=== PATIENT | male | born 1940 | race Caucasian/White ===

== ENCOUNTER 2017-07-09 14:04 | Inpatient (IN) | payer MEDICARE, OTHER ==
[~2017-07-09] VITALS: Ht 172.7 cm; Wt 83.3 kg
--- NOTE | 2017-07-09 23:00 | EKG ---
[facility] [address] [facility] [place] [address] Signed Sinus rhythm with 1st degree AV block Left axis deviation Nonspecific intraventricular block Abnormal ECG No previous ECGs available Confirmed by ARON SCHULTZ MD ([id number]) on 07/09/2017 11:00:29 PM Electronically Signed By: ARON SCHULTZ MD 07/09/17 2300 PATIENT NAME: JANICE FOSTER Electrocardiogram DATE OF : 40 PHYSICIAN: ARON SCHULTZ MD REPORT #: [id number] REPORT IS CONFIDENTIAL AND NOT TO BE RELEASED WITHOUT AUTHORIZATION
--- NOTE | 2017-07-09 23:00 | EKG ---
[facility] [address] [place] [address] Signed Sinus rhythm with 2nd degree AV block (Mobitz I) Left axis deviation Nonspecific intraventricular block Abnormal ECG When compared with ECG of 09-JUL-2017 14:09, (Unconfirmed) Sinus rhythm is now with 2nd degree AV block (Mobitz I) Confirmed by ARON SCHULTZ MD ([id number]) on 07/09/2017 11:00:41 PM Electronically Signed By: ARON SCHULTZ MD 07/09/17 2300 PATIENT NAME: JANICE FOSTER Electrocardiogram DATE OF : 40 PHYSICIAN: ARON SCHULTZ MD REPORT #: [id number] REPORT IS CONFIDENTIAL AND NOT TO BE RELEASED WITHOUT AUTHORIZATION
[2017-07-11] MEDS ORDERED: GLUCOPHAGE500 MG PO (10:17)
[2017-07-11] MEDS ORDERED: LASIX20 MG PO (10:17)
[2017-07-11] MEDS ORDERED: NORVASC10 MG PO (10:18)
[2017-07-11] MEDS ORDERED: ISOSORBIDE MONO60 MG PO (10:18)
[2017-07-11] MEDS ORDERED: LIPITOR20 MG PO (10:18)
[2017-07-11] MEDS ORDERED: AMARYL1 MG PO (10:19)
[2017-07-11] MEDS ORDERED: LISINOPRIL20 MG PO (10:30)
[2017-07-11] MEDS ORDERED: FUROSEMIDE40 MG PO (10:30)
[2017-10-06] MEDS ORDERED: ISOSORBIDE MONO60 MG PO (14:40)
[2017-11-10] MEDS ORDERED: IRON160 MG PO (13:10)
== END 2017-07-11 11:20 | disposition home or self-care (01) | DRG 291 ==
LOC: ED 14:04 → MS 17:00
PROVIDERS: ADMIT Internal Medicine
DX: I13.0 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 kidney disease, or unspecified chronic kidney disease (principal); I50.33 Acute on chronic diastolic (congestive) heart failure; J96.01 Acute respiratory failure with hypoxia; E11.22 Type 2 diabetes mellitus with diabetic chronic kidney disease; N18.3 Chronic kidney disease, stage 3 (moderate); I25.10 Atherosclerotic heart disease of native coronary artery without angina pectoris; D64.9 Anemia, unspecified; E03.9 Hypothyroidism, unspecified; E78.5 Hyperlipidemia, unspecified; Z87.891 Personal history of nicotine dependence; Z79.84 Long term (current) use of oral hypoglycemic drugs
CPT/HCPCS: 36415; 80048; 83735; 83874; 83880; 84484; 93005; 93010; J1650

== ENCOUNTER 2017-09-20 21:17 | Inpatient (IN) | payer MEDICARE ==
[~2017-09-20] VITALS: Ht 172.7 cm; Wt 86.8 kg
--- NOTE | 2017-09-20 00:50 | NUR ---
first unit of blood started, pt has no s/sx of transfusion reaction. pt laying in bed. no distress. has voided x1 since he arrived to the floor. uses urinal. alert and oriented x4. only complaint is that he feels tired, but he reports he hasnt been sleeping well lately because of his cough. no further needs at this time. educated pt on fluid restriction, pt acknowledges understanding.
[~2017-09-20 21:17] MED LIST: AMARYL1 MG PO; FUROSEMIDE40 MG PO; GLUCOPHAGE500 MG PO; ISOSORBIDE MONO60 MG PO; LASIX20 MG PO; LIPITOR20 MG PO; LISINOPRIL20 MG PO; NORVASC10 MG PO
[2017-09-20] MEDS ORDERED: ASPIR-LOW81 MG PO (21:32)
[2017-09-20] MEDS ORDERED: VITAMIN C500 M5 PO (21:33)
[2017-09-20] MEDS ORDERED: FUROSEMIDE40 MG PO (21:37)
[2017-09-20] MEDS ORDERED: CALCIUM 500-VI1 EACH PO (21:40)
[2017-09-20] MEDS ORDERED: SODIUM BICARBO650 MG PO (21:43)
--- NOTE | 2017-09-20 23:43 | NUR ---
PT ARRIVED TO FLOOR VIA STRETCHER. ABLE TO TRANSFER SELF BY AMBULATING TO HOSP BED INDEPENDANTLY. PT ALERT AND ORIENTED X4. PLEASENT. TELE IN PLACE. CONTINUOUS PULSE OXIMETER IN PLACE. PT ORIENTED TO ROOM. CALL LIGHT IN REACH. PT WATCHING TV. NO DISTRESS.
--- NOTE | 2017-09-21 01:38 | NUR ---
pt desated into upper 80%'s on ra while sleeping. re-positioned pt to sit up more in bed, when pt woke up his sats came up into mid 90%'s on ra. while sleeping though, pt continued to dip down into upper 80's. placed pt on 2l while sleeping. pt has no s/sx of blood transfusion reaction. pt has no needs. call light is in reach.
--- NOTE | 2017-09-21 04:12 | NUR ---
SECOND UNIT OF BLOOD STARTED. NO S/SX OF INFUSION REACTION. PT STATES "MY COUGH IS STILL BAD, BUT I FEEL LIKE I CAN BREATHE BETTER." PT REPORTS SOB IS "ALMOST GONE." PT HAS NO NEEDS. WATCHING TV. NO DISTRESS. CALL LIGHT IN REACH.
--- NOTE | 2017-09-21 05:31 | NUR ---
RECEIVED REPORT ON PT, HE IS AWAKE IN BED AT THIS TIME WATCHING TV. PT DENIES NEEDS AT THIS TIME.
--- NOTE | 2017-09-21 06:19 | NUR ---
2ND UNIT OF PRBC IS COMPLETE AND VS ENTERED. PT IS AWAKE IN BED WATCHING TV. PT DENIES FURTHER NEEDS AT THIS TIME.
--- NOTE | 2017-09-21 07:46 | NUR ---
RECEIVED REPORT FROM NIGHTSHIFT RN. PT IS AWAKE IN BED. 2L O2 IN PLACE. SATURATION IS 95% PULSE IS 75 ON CONTINULA PULSE OX. PT ON TELE # 8 IN SINUS RHYHTM. PT IS A/O. RESPIRATIONS WNL. PT IS SL IN LAC. 2ND UNIT FINISHED INFUSING @ 0612 THIS AM. CALL [facility] WITHIN REACH
--- NOTE | 2017-09-21 08:23 | NUR ---
rounded with dr pressley. talked to pt about about plan of care. 1 unite of blood ordered. blood sugar was 101. beakfast given. call light within reach.
--- NOTE | 2017-09-21 08:45 | NUR ---
dr pressley titrated to ra. pt tolerating well. saturations at 94% pulse 83.
--- NOTE | 2017-09-21 10:36 | NUR ---
STARTED BLOOD INFUSION. PRE V/S @ 1032- TEMP 98.5, RESPIRATIONS 16, B/P 116/35, O2 95%. PT EDUCATED ON BLOOD REACTIONS. UESED TEACH BACK METHOD. PT WAS ABLE TO SAY REATIONS TO LOOK FOR- RASH, FLANK PAIN, SOB, ITCHING, TEMP INCREASE. STARTED BLOOD @ 75ML/HR FOR FIRST 15MIN. NO INITAL REACTIONS NOTED.
--- NOTE | 2017-09-21 10:51 | NUR ---
15 MIN AFTER START OF TRANSFUSION STARTED. NO REACTIONS NOTED. V/S- TEMP 98, PULSE 68, RESPIRATIONS 20, B/P 117/36, O2 92% ON RA.
[2017-09-21] MEDS ORDERED: TENORMIN50 MG PO (11:30)
[2017-09-21] MEDS ORDERED: ZESTRIL20 MG PO (11:33)
--- NOTE | 2017-09-21 12:47 | NUR ---
Heart Failure education- Patient given HF folder including [facility] HF book, blank [employer] home med schedule, daily weight/sx log, and low sodium shopping list. States he can read if the words aren't too long. Lives alone in [facility]. States transportation is by landlady. Diet consists of dining out, canned soup, and lots of Ramen noodles. Patient informed of hidden salt in these items. Patient is aware that he was diagnosed with HF last June. Does not own scale and does not currently weigh self every day. Plan: Pt to view HF video and return for in depth discussion about low salt alternatives. Offer patient pill box and scale to take home.
[2017-09-21] MEDS ORDERED: PRILOSEC OTC20 MG PO (13:35)
[2017-09-21] MEDS ORDERED: CENTRUM SILVER1 EAC3 PO (13:36)
[2017-09-21] MEDS ORDERED: FISH OIL 1,0001 EAC2 NG (13:37)
--- NOTE | 2017-09-21 13:38 | NUR ---
MED REC COMPLETE
--- NOTE | 2017-09-21 13:53 | NUR ---
BLOOD TRANSFUSIION COMPLETE. PT HAS NO S/SX OF A TRANSFUSION REACTION. B/P IS 116/34, 95% ON 2L NC, PULSE IS 66, RESPIRATONS 24. PT IS A/O STATES HES READY FOR A NAP.
--- NOTE | 2017-09-21 16:18 | NUR ---
PT COMPLAINED OF CHEST PAIN. 03/21 THAT LASTED FOR 1 SEC. THE PT STAT ED HE WAS ALMSOT ASLEEP WHEN IT HAPPENED. V/S 116/50, 98.8 TEMP, 92% SATURATION, 77 PULSE, RESPIRATIONS 28. DR SCHULTZ NOTIFIED. NO NEW ORDERS.
--- NOTE | 2017-09-21 17:18 | EKG ---
[facility] [address] [place] [address] Signed Sinus rhythm with 1st degree AV block Right bundle branch block Left anterior fascicular block Bifascicular block Abnormal ECG When compared with ECG of 09-JUL-2017 15:21, Sinus rhythm is no longer with 2nd degree AV block (Mobitz I) Confirmed by ARON SCHULTZ MD ([id number]) on 09/21/2017 5:18:40 PM Electronically Signed By: ARON SCHULTZ MD 09/21/17 1718 PATIENT NAME: JANICE FOSTER Electrocardiogram DATE OF : 40 PHYSICIAN: ARON SCHULTZ MD REPORT #: [id number] REPORT IS CONFIDENTIAL AND NOT TO BE RELEASED WITHOUT AUTHORIZATION
--- NOTE | 2017-09-21 17:55 | NUR ---
3 UNITS BLOOD GIVEN. NO REACTIONS. LUNGS ARE DIM. ADA DIET. SBA. SCD'S. SL. DBP HAS BEEN RUNNING LOW IN 38-40'S. LAST B/P WAS 116/50. LASIX GIVEN.
--- NOTE | 2017-09-21 21:00 | NUR ---
pt laying in bed. no apparent distress. alert and oriented, pleasent demenor. no needs at this time.
--- NOTE | 2017-09-21 23:28 | NUR ---
AXILLARY TEMP 101.6, DR SCHULTZ GAVE NEW ORDERS. RN PLACED ORDERS IN COMPUTER.
--- NOTE | 2017-09-21 23:40 | NUR ---
PT RECIEVED TYLENOL FOR ELEVATED TEMP, SHORTLY AFTER PT VOMITED, UNABLE TO TELL IF TYLENOL WAS EXPELLED WITH VOMIT. DR SCHULTZ OKNITIN'D TO HAVE ANOTHER DOSE OF TYLENOL GIVEN. PT GIVEN ZOFRAN ALSO.
--- NOTE | 2017-09-22 00:40 | NUR ---
PT LAYING IN BED. AXILLARY TEMP 100.6 NOW. PT FINISHED REMAINDER OF BOWEL PREP. NO BM YET. PT REPORTS FEELING BETTER. RIGORS ARE GONE AND PT REPORTS HE DOES NOT FEEL COLD ANYMORE. ALLOWING PT TO REST. NPO FOR PROCEDURE IN THE MORNING. CALL LIGHT IN REACH. BED ALARM FOR SAFETY.
--- NOTE | 2017-09-22 02:16 | NUR ---
PT APPEARS TO BE SLEEPING. RR WNL AND UNLABORED. LIGHTS AND TV OFF IN ROOM.
--- NOTE | 2017-09-22 05:11 | NUR ---
PT SPIKED TEMP EARLY IN SHIFT, TYLENOL CONTROLLED FEVER WELL. BLOOD CULTURES AND CHEST XRAY ORDERED AND COMPLETED. UA AND SPUTUM SAMPLE ALSO ORDERED, BUT STILL NEED TO BE COLLECTED. PT COMPLETED BOWEL PREP LAST NIGHT RIGHT BEFORE 0100, HAS BEEN NPO SINCE THEN, NO BM YET. EGD AND COLONOSCOPY SCHEDULED TODAY TO FOLLOW. IV ANTIBIOTICS STARTED LAST NIGHT. BED ALARM ACITATED FOR PT SAFETY. ALERT AND ORIENTED X4. PLEASENT DEMEANOR.
--- NOTE | 2017-09-22 05:53 | NUR ---
PT INCONTINENT OF BM. SAT ON TOILET SEVERAL MINUTES AND HAD LARGE AMOUNTS OF LIQUID BM. COLLECTED CLEAN CATCH UA. ASSISTED PT IN CLEANING HIMSELF UP, NEW GOWN. CLEANED BED AND CHANGED BEDDING. PT HAS NO FURTHER NEEDS. AND NO COMPLAINTS AT THIS TIME. CALL LIGHT IN REACH.
--- NOTE | 2017-09-22 08:02 | NUR ---
BEDSIDE REPORT RECEIVED FROM ANNEMARIE. PATIENT AWAKE, A&O, SITTING IN THE CHAIR. DENIES PAIN AT THIS TIME, NO NAUSEA. PATIENT IS S/L. NO APPARENT DISTRESS. WHITE BOARD UPDATED. CALL LIGHT IN REACH.
--- NOTE | 2017-09-22 08:25 | NUR ---
PATIENT RESTING IN BED, DENIES NAUSEA AND PAIN. REPORTS FEELING TIRED FROM GETTING UP FREQUENTLY TO BATHROOM DUE TO BOWEL PREP. SKIN INTACT. LUNGS DIM IN THE BASES. ACTIVE BOWEL TONES. PERIPHERAL PULSE PALPABLE. NO APPARENT DISTRESS. MORNING MEDS GIVEN WITH SIP OF WATER. HOLD BP MED FOR LOW BP. WILL REEVALUATE LATER.
--- NOTE | 2017-09-22 09:53 | CONS ---
[facility] [address] [place], [place] [address] Signed DATE OF CONSULTATION: 09/21/2017 TIME: 7:15 p.m. CONSULTING PHYSICIAN: Caesar Sousa MD PROBLEM: Profound anemia, etiology uncertain. HISTORY OF PRESENT ILLNESS: This 76-year-old white male was admitted to the hospital after evaluation in the emergency room last night. He was admitted by Dr. Schultz this morning, having had complaints of shortness of breath and general weakness. He was hospitalized in June of 2017 for decompensated heart failure. He has had shortness of breath 2 days prior to admission with inability to walk even half a block. He had some lightheadedness as well. He has had no overt bleeding, specifically no hematemesis or hematochezia. His evaluation in the emergency room was significant for a hemoglobin noted to be 6. He received 2 units of packed red cells. His hemoglobin today is 7.7. PAST MEDICAL HISTORY: Does include coronary artery disease. A stress test performed in August of 2017 showing ischemia of the inferior and septal wall areas. Specific intervention for this finding has not been made apparent to me. He does have known heart failure with preserved ejection fraction, chronic kidney disease considered stage 3 with baseline creatinine of 1.8. Also, has type 2 diabetes mellitus, hypothyroidism, and history of colonic polyps. Specific to his colonic polyps, he had what sounds like anemia in 2007, was evaluated in [place], [place], where he underwent upper endoscopy and colonoscopy and had multiple polyps, which were excised. It is notable that he was incarcerated at [facility] at that time. He was serving 10 years for his offense and has since been released. He now lives in [place]. He lives alone. MEDICATIONS: His medications at admission include: 1. Aspirin. 2. Vitamin C. 3. Lasix. 4. Calcium supplement tablet. Electronically Signed By: CAESAR SOUSA MD 09/22/17 0953 PATIENT NAME: JANICE FOSTER CONSULTATION DATE OF : 40 REPORT #: [id number] PHYSICIAN: CAESAR SOUSA MD PCP: GILDARDO PAULINO REPORT IS CONFIDENTIAL AND NOT TO BE RELEASED WITHOUT AUTHORIZATION [facility] [address] [place], [place] [address] Signed 5. Metformin. 6. Isosorbide mononitrate. 7. Amlodipine. 8. Atorvastatin. 9. Glimepiride. REVIEW OF SYSTEMS: He denies any chest pain or shortness of breath at this time. He has had no hematemesis or blood per rectum. Denies dysphagia. PHYSICAL EXAMINATION: GENERAL: A elderly man, who does not look particularly healthy in any way, but does not look acutely sick or toxic either. HEENT: Mucous membranes reasonably moist. Trachea is midline. He has no cough. He has no hoarseness at this time. CHEST: Shows normal respiratory excursion without tachypnea. ABDOMEN: Soft and nondistended. There is no palpable mass. No tenderness. No ascites. EXTREMITIES: Show no clubbing, cyanosis, or edema. There are no petechiae. LABORATORY DATA: His electrolytes yesterday showed a creatinine of 1.81. Liver enzymes were normal. Troponin was 0.061, normal is less than 0.010. His BNP (beta natriuretic peptide) was 413. His hematocrit yesterday was 18.1, today 23.7, platelet count is 207,000, which is stable. Chest x-ray showed no sign of acute pulmonary edema or other particular problem. ASSESSMENT: His anemia is profound and likely chronic given its significant nature. He has had no overt bleeding, but has some source of probable blood loss. Less likely would be a problem with hematopoiesis. I have recommended upper endoscopy and colonoscopy. We would certainly appreciate the assistance of an culinary chef for sedation and under his circumstances. The risks of bleeding, infection, and perforation were reviewed with him. PLAN: We will set up for colonoscopy and upper endoscopy tomorrow. He can have clear liquids up till midnight. Likely this will be able to be performed tomorrow morning. Caesar Sousa MD Electronically Signed By: CAESAR SOUSA MD 09/22/17 0953 PATIENT NAME: JANICE FOSTER CONSULTATION DATE OF : 40 REPORT #: [id number] PHYSICIAN: CAESAR SOUSA MD PCP: GILDARDO PAULINO REPORT IS CONFIDENTIAL AND NOT TO BE RELEASED WITHOUT AUTHORIZATION [facility] [address] [facility] [place], [place] [address] Signed SANDRA/GUILLE /[id number] cc: Aron Schultz MD Copies: ARON SCHULTZ MD ~ Electronically Signed By: CAESAR SOUSA MD 09/22/17 0953 PATIENT NAME: JANICE FOSTER CONSULTATION DATE OF : 40 REPORT #: [id number] PHYSICIAN: CAESAR SOUSA MD PCP: GILDARDO PAULINO REPORT IS CONFIDENTIAL AND NOT TO BE RELEASED WITHOUT AUTHORIZATION
--- NOTE | 2017-09-22 09:55 | NUR ---
PATIENT OFF THE FLOOR WITH OR NURSE BALDOMERO FOR EGD PROCEDURE.
--- NOTE | 2017-09-22 11:00 | NUR ---
09/22/17 1100 Baylee Patrick 1053 PATIENT ARRIVES TO PACU SLEEPING, AWAKENS AFTER REPEATED PAINFUL STIMULI, THEN BACK TO SLEEP. RESP EVEN AND UNLABORED, NC AT 4 LITERS.
--- NOTE | 2017-09-22 11:50 | NUR ---
PATIENT BACK TO FLOOR FROM HIS EGD PROCEDURE. DENIES PAIN AND NAUSEA AT THIS TIME. NO ABD PAIN. IV SITE PATENT. SCD BACK ON. NOTIFIED PATIENT ABOUT RESULT OF EGD AND THAT THE DR WANTS TO PROCEED WITH A CT WITH ORAL CONTRAST.
--- NOTE | 2017-09-22 13:39 | NUR ---
THIS HOME IMPROVEMENT CONTRACTOR ASSISTED PATIENT TO THE [address] SBA. PATIENT NOW RELAXING IN CHAIR WATCHING TV. CALL LIGHT WITHIN REACH. NO OTHER NEEDS AT THIS TIME.
--- NOTE | 2017-09-22 13:43 | NUR ---
PATIENT RESTING IN BED, DENIES PAIN. REPORTS BEING TIRED. NO APPARENT DISTRESS NOTED. CALL LIGHT IN REACH. WILL CONTINUE TO MONITOR.
--- NOTE | 2017-09-22 16:01 | NUR ---
DR SCHULTZ IN ROOM TO SEE AND EVALUATE PATIENT. DM TALKED TO PATIENT ABOUT RESULT OF THE EGD.
--- NOTE | 2017-09-22 18:34 | NUR ---
PATIENT HAD DONE WELL TODAY. EGD DONE THIS AM, RESULT NORMAL. CT WAS DONE THIS PM, NO FINDINGS. PATIENT DENIED NAUSE E AND PAIN. HAD BEEN UP TO BATHROOM. URINE MEET [place] PARAMETER. PATIENT IS S/L. IV ABX. TOLERATED CLEAR LIQUID WELL. LAB SCHEDULE IN THE AM. NO FEVER IN THIS SHIFT. MAY D/C TOMORROW.
--- NOTE | 2017-09-22 18:47 | NUR ---
PATIENT UP TO BATHROOM AND BACK TO BED. FRESH ICE WATER GIVEN. CALL BUTTON IN REACH. OUT PUT REPORTED TO RN. CALL BUTTON IN REACH. NO OTHER NEEDS AT THIS TIME.
--- NOTE | 2017-09-22 19:43 | OR ---
[facility] [address] [place], [place] [address] Signed DATE OF OPERATION: 09/22/2017 SURGEON: Caesar Sousa MD PREOPERATIVE DIAGNOSIS: Anemia of uncertain etiology, hemoglobin 6 initially. POSTOPERATIVE DIAGNOSES: 1. Essentially normal upper endoscopy, mild distal esophagitis. No ulceration. No lesion to account for bleeding. 2. Total colonoscopy with no evidence of lesion to account for anemia. PROCEDURES: 1. Esophagogastroduodenoscopy with biopsy. 2. Total colonoscopy. ANESTHESIA: Intravenous sedation, propofol infusion, Carlie Mitch EVENT COORDINATOR MARKETING AND SALES. INDICATION: This 76-year-old white male was admitted by Dr. Schultz on September 20, 2017 with profound anemia, having presented with lightheadedness, weakness, and so forth. Hemoglobin was found to be 6.2. He has undergone 2 units of blood transfusion. Hemoglobin today is 9.0. He has had no overt rectal bleeding. No hematemesis and no prior history of ulcer or known abnormality other than polyps on colonoscopy nearly 10 years ago. He has undergone bowel prep and at this time to undergo upper endoscopy and colonoscopy. He understands the risks of bleeding, infection, and perforation. He is considered ASA class 4. FINDINGS: On upper endoscopy, there was no evidence of lesion to account for bleeding. The esophagus, stomach, and duodenum were reasonably normal. There is mild distal esophagitis. A biopsy was obtained. There was no Izquierdo's epithelium. There is certainly no sign of neoplasm or mass otherwise. There is no ulceration. On colonoscopy, the prep was adequate, but a fair amount of irrigation was required. He did not have solid stool, but a fair amount of liquid residual turbid fluid. Colonoscopy was undertaken to the cecum with no obvious lesion identified. This included retroflexed view. Electronically Signed By: CAESAR SOUSA MD 09/22/17 194 PATIENT NAME: JANICE FOSTER OPERATIVE REPORT DATE OF : 40 REPORT #: [id number] PHYSICIAN: CAESAR SOUSA MD PCP: GILDARDO PAULINO REPORT IS CONFIDENTIAL AND NOT TO BE RELEASED WITHOUT AUTHORIZATION [facility] [address] [place], [place] [address] Signed DESCRIPTION OF PROCEDURE: The patient was brought to the endoscopy suite and placed in lateral decubitus position given topical Hurricaine spray hypopharyngeal anesthesia. He was given intravenous sedation with propofol infusional technique with the nurse film reader with full cardiopulmonary monitoring. A bite block was placed. An Olympus video upper endoscope was passed in the hypopharynx. The vocal cords and hypopharyngeal tissue were normal. Scope was advanced to the esophagus throughout its length, it was normal. Scope was advanced to the stomach, which was insufflated with air. Rugal folds appeared normal. The antrum was normal. Pylorus normal. Scope was passed through into the duodenum, which was also normal including the bulbar and 2nd and 3rd portions. The scope was withdrawn carefully assessing no evidence of ulcer in the pyloric channel. Withdrawal of scope to the stomach allowed for retroflexed view, which was essentially normal though the flap valve was slightly loose. The scope was straightened and withdrawn to the distal esophagus. There was no sign of ulceration, neoplasm, varices, or stricture. No Izquierdo's epithelium. A biopsy was obtained as there was mild inflammatory change. Further withdrawal of scope showed no other findings. Additional sedation and continued infusional technique of propofol were given and digital rectal examination was undertaken allowing for egress of copious amounts of liquid stool, which did not appear bloody particularly. The Olympus video colonoscope was passed in the rectum and manipulated throughout the colon. A fair amount of irrigation was required as there was residual fluid and turbid stool laden fluid. With various maneuvers, the scope was ultimately passed to the cecum. Irrigation was undertaken there and there was no sign of lesion. The scope was then carefully withdrawn. Examination throughout showed no sign of abnormality including no diverticular formation, colitis, or cancer. Retroflex view of the rectum was normal. There was no sign of hemorrhoidal disease. There was no lesion to account for his anemia. The scope was removed and the patient was taken to recovery room in good condition. CONCLUDING DIAGNOSIS: Anemia of uncertain etiology. PLAN: Consideration might be made for a CT scan of the abdomen to assess for occult small bowel lesion or other abnormality that may contribute to anemia. Caesar Sousa MD Electronically Signed By: CAESAR SOUSA MD 09/22/171942 PATIENT NAME: JANICE FOSTER OPERATIVE REPORT DATE OF : 40 REPORT #: [id number] PHYSICIAN: CAESAR SOUSA MD PCP: GILDARDO PAULINO REPORT IS CONFIDENTIAL AND NOT TO BE RELEASED WITHOUT AUTHORIZATION [address] [address] Signed SANDRA/GUILLE /[id number] cc: Aron Schultz MD Copies: ARON SCHULTZ MD ~ Electronically Signed By: CAESAR SOUSA MD 09/22/17 1943 PATIENT NAME: JANICE FOSTER OPERATIVE REPORT DATE OF : 40 REPORT #: [id number] PHYSICIAN: CAESAR SOUSA MD PCP: GILDARDO PAULINO REPORT IS CONFIDENTIAL AND NOT TO BE RELEASED WITHOUT AUTHORIZATION
--- NOTE | 2017-09-22 20:00 | NUR ---
RECEIVED REPORT AT 1900, FOUND PT IN BED AWAKE READING. PT DENIED PAIN, SOB OR ANY OTHER CONCERNS AT THAT TIME.
--- NOTE | 2017-09-22 21:20 | NUR ---
VITALS AND I&OS DONE AND CHARTED. BEDSIDE TABLE AND CALL LIGHT WITHIN REACH.
--- NOTE | 2017-09-22 21:24 | NUR ---
ROUNDED CHARGE. OJ TAN IS IN THE ROOM. PATIENT DENIES ANY NEEDS AT THIS TIME. CALL LIGHT IN REACH.
--- NOTE | 2017-09-22 22:00 | NUR ---
V/S ARE WDL OVERALL, BG WAS 100, NO INSULIN WAS GIVEN. SPUTUM STILL HAS NOT BEEN COLLECTED. THERE WAS EXPIRATORY WHEEZING IN ALL RIGHT LOBES AND THE UPPER LEFT LOBE. ALL OTHER LOBES ARE CLEAR. PT DENIES SOB. ABD SOUNDS ARE PRESENT, NO PERIPHERAL EDEMA NOTED. NO OTHER CONCERNS AT THIS TIME.
--- NOTE | 2017-09-22 22:17 | NUR ---
HELPED PT TO THE BATHROOM AND BACK TO BED. BEDSIDE TABLE AND CALL LIGHT IN REACH. FRESH WATER GIVEN
--- NOTE | 2017-09-23 | NUR ---
PT IS SLEEPING.
--- NOTE | 2017-09-23 02:00 | NUR ---
PT IS SLEEPING AT THIS TIME.
--- NOTE | 2017-09-23 04:06 | NUR ---
PT IS SLEEPING AT THIS TIME.
--- NOTE | 2017-09-23 04:17 | NUR ---
ASSISTED PT TO BATHROOM. PT VOIDED 300ML. ALL LOBES ARE CLEAR. SPUTUM SAMPLE HAS BEEN COLLECTED AND WILL BE SENT NOW. NO NEW CONCERNS AT THIS TIME.
--- NOTE | 2017-09-23 05:44 | NUR ---
VITALS AND I&OS DONE AND CHARTED. GARBAGES EMPTIED. BEDSIDE TABLE AND CALL LIGHT IN REACH.
--- NOTE | 2017-09-23 06:00 | NUR ---
V/S OVERALL ARE WDL. PT HAS REMAINED AFEBRILE ALL SHIFT. PT SLEPT MOST OF THIS SHIFT. SPUTUM SAMPLE WAS SENT. AT START OF SHIFT PT HAD EXPIRATORY WHEEZING, WITH THE SECOND ASSESSMENT, ALL LOBES WERE CLEAR. URINE OUTPUT WAS NOT ADEQUATE FROM [id number] BUT PT WAS SLEEPING. NO PERIPHERAL EDEMA NOTED. NO OTHER CONCERNS FOR THIS PT AT THIS TIME.
--- NOTE | 2017-09-23 07:19 | NUR ---
BEDSIDE REPORT RECEIVED FROM OJ. ASSUMING PATIENT CARE WITH STUDENT NURSE. PATIENT AWAKE, ALERT AND ORIENTED, LYING IN BED . NO COMPLAINTS AT THIS TIME. CALL LIGHT IN REACH
--- NOTE | 2017-09-23 07:29 | NUR ---
Student nurse received report. Pt resting comfortably in bed. Pt. reports no pain or distess. Assessment completed, respiratory assessment reveals crackles in the LLL. Patient waiting for breakfast. Call light within reach.
--- NOTE | 2017-09-23 09:07 | NUR ---
Atenolol and Isosorbide not given at this time because of low diastolic pressure. Waiting for consult with physician for administration. BP 137/40
--- NOTE | 2017-09-23 10:02 | NUR ---
Pt temp WDL with oral route. Atenolol and isosorbide given at the decretion of the doctor.
--- NOTE | 2017-09-23 10:05 | NUR ---
Pt up in chair. Pt reports no discomfort, pain, or SOB. Antibiotic infusing. Bedding changed. Pt educated on anemia patho. Call light within reach.
[2017-09-23] MEDS ORDERED: CEFPODOXIME PR200 MG PO (10:19)
--- NOTE | 2017-09-23 10:19 | NUR ---
PATIENT ASSESSMENT DONE BY STUDENT NURSE. THIS RN REVIEWED ALL ASSESSMENT. DR SCHULTZ WAS CONSULTING ABOUT BP MEDS, OK TO GIVE MEDS.
[2017-09-23] MEDS ORDERED: AZITHROMYCIN500 MG PO (10:20)
[2017-09-23] MEDS ORDERED: ASPIR-LOW81 MG PO (10:21)
--- NOTE | 2017-09-23 11:05 | NUR ---
Heart failure education - 15 minutes discussing low sodium quick foods alternatives and decreasing frequency of fast food meals. Patient described his method for filling his AM and PM pill boxes. States pharmacist does auto reminder calls for his refills. Denies missed medications. Mini Cognitive screening completed Total Score 4. (a cut point of <3 has been validated for dementia screening).
--- NOTE | 2017-09-27 11:56 | NUR ---
Heart failure [facility] DC follow up call #1- Patient was discharged on 09/23/17 states he is doing well. Appetite WNL. Does not have scales for daily weight. Encouraged patient to obtain scales and check QD as discussed. To call this RN if needs assistance with obtaining. Denies problems with breathing. Able to state date of PCP follow up as 10/13/17 and that he does have a ride to the visit. Was able to state that he had discontinued 2 meds as instructed and that he picked up antibiotics "the new red pill". He denies problems with taking or understanding medication instructions.
[2017-10-06] MEDS ORDERED: ISOSORBIDE MONO60 MG PO (14:40)
[2017-11-10] MEDS ORDERED: IRON160 MG PO (13:10)
== END 2017-09-23 11:23 | disposition home or self-care (01) | DRG 811 ==
LOC: ED 21:17 → MS 21:18 → ED 21:18 → MS 09-21 08:54
PROVIDERS: Surgery; ADMIT Internal Medicine
PROC: 30233N1 Transfusion of Nonautologous Red Blood Cells into Peripheral Vein, Percutaneous Approach (ICD-10-PCS; principal; 2017-09-21)
PROC: 0DB38ZX Excision of Lower Esophagus, Via Natural or Artificial Opening Endoscopic, Diagnostic (ICD-10-PCS; 2017-09-22 10:30)
PROC: 0DJD8ZZ Inspection of Lower Intestinal Tract, Via Natural or Artificial Opening Endoscopic (ICD-10-PCS; 2017-09-22 10:30)
DX: D50.8 Other iron deficiency anemias (principal); J13 Pneumonia due to Streptococcus pneumoniae; J96.01 Acute respiratory failure with hypoxia; I13.0 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 kidney disease, or unspecified chronic kidney disease; I25.10 Atherosclerotic heart disease of native coronary artery without angina pectoris; I50.9 Heart failure, unspecified; N18.3 Chronic kidney disease, stage 3 (moderate); E11.22 Type 2 diabetes mellitus with diabetic chronic kidney disease; E78.5 Hyperlipidemia, unspecified; K20.9 Esophagitis, unspecified; E03.9 Hypothyroidism, unspecified; Z86.010 Personal history of colon polyps; Z87.891 Personal history of nicotine dependence; Z88.2 Allergy status to sulfonamides; Z79.82 Long term (current) use of aspirin; Z79.84 Long term (current) use of oral hypoglycemic drugs
CPT/HCPCS: 36415; 71046; 74176; 80048; 80053; 81001; 83880; 84484; 85025; 86850; 86900; 86901; 86920; 87040; 87070; 87205; 88305; 93005; 93010; 94762; J0456; J0696; J2405; J2704; J7040

== ENCOUNTER 2017-10-27 10:41 | Day surgery (SDC) | payer MEDICARE ==
[~2017-10-27] VITALS: Ht 172.7 cm; Wt 85.7 kg
[~2017-10-27 10:41] MED LIST changes: +ASPIR-LOW81 MG PO; +AZITHROMYCIN500 MG PO; +CALCIUM 500-VI1 EACH PO; +CEFPODOXIME PR200 MG PO; +CENTRUM SILVER1 EAC3 PO; +FISH OIL 1,0001 EAC2 NG; +PRILOSEC OTC20 MG PO; +SODIUM BICARBO650 MG PO; +TENORMIN50 MG PO; +VITAMIN C500 M5 PO; +ZESTRIL20 MG PO
--- NOTE | 2017-10-27 13:10 | NUR ---
10/27/17 1310 [place] 1243 PT ARRIVED IN PACU SLEEPY LAYING ON STOMACH. NO C/O'S. 1300 REPOSITIONED TO L SIDE. NO C/O'S.
[2017-11-10] MEDS ORDERED: IRON160 MG PO (13:10)
== END 2017-10-27 13:30 | disposition home or self-care (01) ==
LOC: OPS 10:41 → DS 10:41
PROVIDERS: Specialist
PROC: 079T3ZX Drainage of Bone Marrow, Percutaneous Approach, Diagnostic (ICD-10-PCS; 2017-10-27)
PROC: 07DR3ZX Extraction of Iliac Bone Marrow, Percutaneous Approach, Diagnostic (ICD-10-PCS; principal; 2017-10-27 12:00)
DX: D61.9 Aplastic anemia, unspecified (principal); E78.5 Hyperlipidemia, unspecified; E11.9 Type 2 diabetes mellitus without complications; E03.9 Hypothyroidism, unspecified; I11.0 Hypertensive heart disease with heart failure; I50.9 Heart failure, unspecified; Z79.82 Long term (current) use of aspirin; Z79.84 Long term (current) use of oral hypoglycemic drugs; Z79.899 Other long term (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; Z88.2 Allergy status to sulfonamides
CPT/HCPCS: 36415; 80053; 82668; 83010; 83615; 85025; 85045; 86880; 99152; J2250; J3010; J7120

== ENCOUNTER 2018-08-06 22:02 | Emergency (ER) | payer MEDICARE ==
[~2018-08-06] VITALS: Ht 172.7 cm; Wt 89.4 kg
[~2018-08-06 22:02] MED LIST changes: +IRON160 MG PO
== END 2018-08-06 23:35 | disposition home or self-care (01) ==
LOC: ED 22:02
DX: S00.31XA Abrasion of nose, initial encounter (principal); S00.81XA Abrasion of other part of head, initial encounter; E03.9 Hypothyroidism, unspecified; E78.5 Hyperlipidemia, unspecified; E11.22 Type 2 diabetes mellitus with diabetic chronic kidney disease; I13.0 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 kidney disease, or unspecified chronic kidney disease; N18.3 Chronic kidney disease, stage 3 (moderate); Z90.49 Acquired absence of other specified parts of digestive tract; Z88.2 Allergy status to sulfonamides; Z79.82 Long term (current) use of aspirin; Z79.84 Long term (current) use of oral hypoglycemic drugs; W01.0XXA Fall on same level from slipping, tripping and stumbling without subsequent striking against object, initial encounter
CPT/HCPCS: 99283

== ENCOUNTER 2018-12-21 09:24 | Observation (INO) | payer MEDICARE ==
[~2018-12-21] VITALS: Ht 172.7 cm; Wt 91.3 kg
[~2018-12-21 09:24] MED LIST changes: -IRON160 MG PO; +IRON325 M1 PO
--- OUTSIDE RECORDS SUMMARY | 2018-12-21 09:26 | XMS ---
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 Care History Medical/Surgical 11/03/2017 [facility] - Patient is currently seeing Dr Suazo. Please refer to Dr Suazo office if patient presents to ED with low blood count levels. - Patient is currently also seeing Dr Alyssa Mcrae in [place]. Care Recommendation: This patient has had 5 or more Emergency Department visits in the last 12 months. Patient requires education on the scope and purpose of the ED as an acute care provider not a Primary Care Provider and should not be utilized for chronic conditions. If patient returns to ED please contact Community Health WorkerElba at [phone]. These are guidelines and the provider should exercise clinical judgment when providing care. E.D. VISIT COUNT (12 MO.) 2 [facility] TOTAL 2 NOTE: Visits indicate total known visits. 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
[2018-12-21] MEDS ORDERED: LEVOTHYROXINE25 MCG PO (09:47)
[2018-12-21] MEDS ORDERED: LISINOPRIL10 MG PO (09:47)
--- NOTE | 2018-12-22 07:58 | EKG ---
[facility] [address] [facility] [place] [address] Signed Sinus rhythm with 1st degree AV block Left axis deviation Nonspecific intraventricular block Abnormal ECG When compared with ECG of 20-SEP-2017 21:46, Nonspecific intraventricular block has replaced Right bundle branch block Confirmed by LANE RODRÍGUEZ MD ([id number]) on 12/22/2018 7:58:22 AM Electronically Signed By: LANE RODRÍGUEZ MD 12/22/18 0758 PATIENT NAME: JANICE FOSTER HOLAARIEL Electrocardiogram DATE OF : 40 PHYSICIAN: LANE RODRÍGUEZ MD REPORT #: [id number] REPORT IS CONFIDENTIAL AND NOT TO BE RELEASED WITHOUT AUTHORIZATION
== END 2018-12-22 10:59 | disposition home or self-care (01) ==
LOC: ED 09:24 → MS 09:25
PROVIDERS: ADMIT Internal Medicine
DX: R53.1 Weakness (principal); R11.10 Vomiting, unspecified; R19.7 Diarrhea, unspecified; E86.1 Hypovolemia; N28.9 Disorder of kidney and ureter, unspecified; E03.9 Hypothyroidism, unspecified; E78.5 Hyperlipidemia, unspecified; E11.22 Type 2 diabetes mellitus with diabetic chronic kidney disease; I13.0 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 kidney disease, or unspecified chronic kidney disease; N18.3 Chronic kidney disease, stage 3 (moderate); I50.9 Heart failure, unspecified; D63.1 Anemia in chronic kidney disease; Z85.828 Personal history of other malignant neoplasm of skin; Z87.891 Personal history of nicotine dependence; Z88.2 Allergy status to sulfonamides; Z79.84 Long term (current) use of oral hypoglycemic drugs; Z79.82 Long term (current) use of aspirin; Z79.899 Other long term (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
CPT/HCPCS: 36415; 70450; 80048; 80053; 81001; 83690; 83735; 84100; 84484; 85025; 93005; 93010; 96361; 96374; 96375; 96376; 97162; 99285-25; C9113; G0378; J1815; J2405; J7030

== ENCOUNTER 2019-09-25 09:07 | Emergency (ER) | payer MEDICARE ==
[~2019-09-25] VITALS: Ht 172.7 cm; Wt 91.2 kg
[~2019-09-25 09:07] MED LIST changes: +LEVOTHYROXINE25 MCG PO; +LISINOPRIL10 MG PO
--- NOTE | 2019-09-25 16:58 | EKG ---
[facility] [address] [facility] [place] [address] Signed Sinus rhythm with 1st degree AV block Right bundle branch block Left anterior fascicular block Bifascicular block Abnormal ECG When compared with ECG of 21-DEC-2018 09:50, Right bundle branch block has replaced Nonspecific intraventricular block Confirmed by ARON SCHULTZ MD ([id number]) on 09/25/2019 4:58:26 PM Electronically Signed By: ARON SCHULTZ MD 09/25/19 1658 PATIENT NAME: JANICE FOSTER Electrocardiogram DATE OF : 40 PHYSICIAN: ARON SCHULTZ MD REPORT #: [id number] REPORT IS CONFIDENTIAL AND NOT TO BE RELEASED WITHOUT AUTHORIZATION
== END 2019-09-25 10:52 | disposition home or self-care (01) ==
LOC: ED 09:07
DX: M54.2 Cervicalgia (principal); R07.89 Other chest pain; E03.9 Hypothyroidism, unspecified; E78.5 Hyperlipidemia, unspecified; I13.0 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 kidney disease, or unspecified chronic kidney disease; E11.22 Type 2 diabetes mellitus with diabetic chronic kidney disease; N18.3 Chronic kidney disease, stage 3 (moderate); Z87.891 Personal history of nicotine dependence; Z88.2 Allergy status to sulfonamides; Z79.899 Other long term (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
CPT/HCPCS: 71046; 80053; 84484; 85025; 93005; 93010; 99284-25

== ENCOUNTER 2020-06-01 14:19 | Emergency (ER) | payer MEDICARE ==
[~2020-06-01] VITALS: Ht 172.7 cm; Wt 91.2 kg
--- NOTE | 2020-06-02 23:58 | EKG ---
[facility] [address] [place] [address] Signed Sinus rhythm with 1st degree AV Block Left anterior fascicular block Right bundle branch block Bifascicular block Minimal voltage criteria for LVH, may be normal variant Abnormal ECG When compared with ECG of 25-SEP-2019 09:20, Nonspecific T wave abnormality, worse in Inferior leads Nonspecific T wave abnormality now evident in Anterolateral leads Confirmed by ARON SCHULTZ MD ([id number]) on 06/02/2020 11:58:16 PM Electronically Signed By: ARON SCHULTZ MD 06/02/20 2358 PATIENT NAME: JANICE FOSTER Electrocardiogram DATE OF : 40 PHYSICIAN: ARON SCHULTZ MD REPORT #: [id number] REPORT IS CONFIDENTIAL AND NOT TO BE RELEASED WITHOUT AUTHORIZATION
== END 2020-06-01 16:24 | disposition home or self-care (01) ==
LOC: ED 14:19
DX: R06.00 Dyspnea, unspecified (principal); I13.0 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 kidney disease, or unspecified chronic kidney disease; E11.22 Type 2 diabetes mellitus with diabetic chronic kidney disease; I50.9 Heart failure, unspecified; N18.30 Chronic kidney disease, stage 3 unspecified; E03.9 Hypothyroidism, unspecified; E78.5 Hyperlipidemia, unspecified; Z87.891 Personal history of nicotine dependence; Z88.2 Allergy status to sulfonamides; Z79.899 Other long term (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; Z79.84 Long term (current) use of oral hypoglycemic drugs; Z79.82 Long term (current) use of aspirin
CPT/HCPCS: 71045; 80053; 83735; 83880; 84484; 85025; 93005; 93010; 99285-25

== ENCOUNTER 2020-07-12 08:20 | Emergency (ER) | payer MEDICARE ==
[~2020-07-12] VITALS: Ht 172.7 cm; Wt 86.2 kg
[2020-07-12] MEDS ORDERED: LEVOTHYROXINE75 MCG PO (08:41)
[2020-07-12] MEDS ORDERED: AMLODIPINE BESYL5 MG PO (08:42)
[2020-07-12] MEDS ORDERED: NORCO 5-325 TA1 EACH PO (10:12)
[2020-07-12] MEDS ORDERED: PREDNISONE20 MG PO (10:12)
== END 2020-07-12 10:27 | disposition home or self-care (01) ==
LOC: ED 08:20
DX: M10.9 Gout, unspecified (principal); I13.0 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 kidney disease, or unspecified chronic kidney disease; E11.22 Type 2 diabetes mellitus with diabetic chronic kidney disease; E03.9 Hypothyroidism, unspecified; E78.5 Hyperlipidemia, unspecified; N18.30 Chronic kidney disease, stage 3 unspecified; I50.9 Heart failure, unspecified; Z87.891 Personal history of nicotine dependence; Z88.2 Allergy status to sulfonamides; Z79.899 Other long term (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; Z79.84 Long term (current) use of oral hypoglycemic drugs; Z79.82 Long term (current) use of aspirin
CPT/HCPCS: 73660; 84550; 85025; 85651; 86140; 99283-25

== ENCOUNTER 2020-10-21 12:16 | Emergency (ER) | payer OTHER, MEDICARE ==
[~2020-10-21] VITALS: Ht 172.7 cm; Wt 90.7 kg
[~2020-10-21 12:16] MED LIST changes: +AMLODIPINE BESYL5 MG PO; +LEVOTHYROXINE75 MCG PO; +NORCO 5-325 TA1 EACH PO; +PREDNISONE20 MG PO
--- NOTE | 2020-10-21 17:17 | EKG ---
[facility] [address] [facility] [place], [place] [address] Signed Wide QRS rhythm Left axis deviation Right bundle branch block Abnormal ECG When compared with ECG of 01-JUN-2020 14:31, Previous ECG has undetermined rhythm, needs review Confirmed by LOGAN DENISE DO ([id number]) on 10/21/2020 5:16:57 PM Electronically Signed By: LOGAN DENISE DO 10/21/20 1717 PATIENT NAME: CRISTIANJANICEMAY ANDERSON Electrocardiogram DATE OF : 40 PHYSICIAN: LOGAN DENISE DO REPORT #: [id number] REPORT IS CONFIDENTIAL AND NOT TO BE RELEASED WITHOUT AUTHORIZATION
== END 2020-10-21 16:15 | disposition short-term general hospital (02) ==
LOC: ED 12:16
DX: S06.5X9A Traumatic subdural hemorrhage with loss of consciousness of unspecified duration, initial encounter (principal); R55 Syncope and collapse; R00.1 Bradycardia, unspecified; W01.10XA Fall on same level from slipping, tripping and stumbling with subsequent striking against unspecified object, initial encounter; Z20.822 Contact with and (suspected) exposure to COVID-19; I13.0 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 kidney disease, or unspecified chronic kidney disease; E11.22 Type 2 diabetes mellitus with diabetic chronic kidney disease; E03.9 Hypothyroidism, unspecified; E78.5 Hyperlipidemia, unspecified; N18.30 Chronic kidney disease, stage 3 unspecified; I50.9 Heart failure, unspecified; F17.200 Nicotine dependence, unspecified, uncomplicated; Z88.2 Allergy status to sulfonamides; Z79.52 Long term (current) use of systemic steroids; Z79.82 Long term (current) use of aspirin
CPT/HCPCS: 70450; 80053; 81001; 84484; 85025; 93005; 93010; 99285-25; C9803; U0003

== ENCOUNTER 2020-10-26 09:35 | Emergency (ER) | payer OTHER, MEDICARE ==
[~2020-10-26] VITALS: Ht 172.7 cm; Wt 90.7 kg
--- OUTSIDE RECORDS SUMMARY | 2020-10-26 09:38 | XMS ---
PreManage Notification: JANICE FOSTER Security Teaching Specialists Events No recent Security Events currently on file CRITERIA MET - [facility] - 2 Visits in 30 Days CARE PROVIDERS GILDARDO PAULINO Nurse Practitioner: Family 12/21/2018-Current PHONE: [phone] Jillian has no Care Guidelines for this patient. Care History Medical/Surgical 11/03/2017 [facility] - Patient is currently seeing Dr Suazo. Please refer to Dr Suazo office if patient presents to ED with low blood count levels. - Patient is currently also seeing Dr Alyssa Mcrae in [place]. Care Recommendation: This patient has had 5 or more Emergency Department visits in the last 12 months. Patient requires education on the scope and purpose of the ED as an acute care provider not a Primary Care Provider and should not be utilized for chronic conditions. If patient returns to ED please contact Community Health WorkerElba at [phone]. These are guidelines and the provider should exercise clinical judgment when providing care. E.D. VISIT COUNT (12 MO.) [facility] TOTAL 4 NOTE: Visits indicate total known visits. ED/UCC VISIT TRACKING (12 MO.) 10/26/2020 09:36 [facility] [place] TYPE: Emergency COMPLAINT: - HEADACHE,(JUST OUT OF TRIOS) BLOOD IN NOSE 10/21/2020 12:17 [facility] [place] TYPE: Emergency COMPLAINT: - FALL DIAGNOSES: - Traumatic subdural hemorrhage with loss of consciousness of unspecified duration, initial encounter - Hypothyroidism, unspecified - Nicotine dependence, unspecified, uncomplicated - Fall on same level from slipping, tripping and stumbling with subsequent striking against unspecified object, initial encounter - Hyperlipidemia, unspecified - [facility] (current) use of aspirin - Heart failure, unspecified - Headache, unspecified - Bradycardia, unspecified - Type 2 diabetes mellitus with diabetic chronic kidney disease - [facility] (current) use of systemic steroids - Syncope and collapse - Allergy status to sulfonamides - 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 kidney disease, or unspecified chronic kidney disease - Chronic kidney disease, stage 3 unspecified - Syncope and collapse 07/12/2020 08:21 [facility] [place] TYPE: Emergency COMPLAINT: - POSSIBLE BROKE TOE DIAGNOSES: - Gout, unspecified - terminal worker (current) use of aspirin - Hyperlipidemia, unspecified - Allergy status to sulfonamides - Type 2 diabetes mellitus with diabetic chronic kidney disease - Hypothyroidism, unspecified - Other terminal worker (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 - Allergy status to sulfonamides - Chronic kidney disease, stage 3 unspecified - 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 kidney disease, or unspecified chronic kidney disease - terminal worker (current) use of oral hypoglycemic drugs - Heart failure, unspecified - Personal history of nicotine dependence - Chronic kidney disease, stage 3 unspecified 06/01/2020 14:20 [facility] [place] TYPE: Emergency COMPLAINT: - SOB, UNSTABLE WALKING DIAGNOSES: - Chronic kidney disease, stage 3 unspecified - 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 kidney disease, or unspecified chronic kidney disease - Hypothyroidism, unspecified - [facility] (current) use of oral hypoglycemic drugs - Hyperlipidemia, unspecified - Shortness of breath - Other terminal worker (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 - Allergy status to sulfonamides - Heart failure, unspecified - Personal history of nicotine dependence - Allergy status to sulfonamides - Type 2 diabetes mellitus with diabetic chronic kidney disease - [facility] (current) use of aspirin - Dyspnea, unspecified - Chronic kidney disease, stage 3 unspecified INPATIENT VISIT TRACKING (12 MO.) 10/21/2020 17:34 [facility] TYPE: Medical Surgical COMPLAINT: - SYMPTOMATIC BRADYCARDIA; SYNCOPAL EVENTS [id number]
--- NOTE | 2020-10-26 14:29 | EKG ---
[facility] [address] [facility] [place] [address] Signed Atrial fibrillation Right bundle branch block Left anterior fascicular block Bifascicular block Abnormal ECG When compared with ECG of 21-OCT-2020 12:25, Atrial fibrillation has replaced Wide QRS rhythm Confirmed by LANE RODRÍGUEZ MD ([id number]) on 10/26/2020 2:29:05 PM Electronically Signed By: LANE RODRÍGUEZ MD 10/26/20 1429 PATIENT NAME: JANICE FOSTER HOLAARIEL Electrocardiogram DATE OF : 40 PHYSICIAN: LANE RODRÍGUEZ MD REPORT #: [id number] REPORT IS CONFIDENTIAL AND NOT TO BE RELEASED WITHOUT AUTHORIZATION
== END 2020-10-26 13:53 | disposition short-term general hospital (02) ==
LOC: ED 09:35
DX: S06.379A Contusion, laceration, and hemorrhage of cerebellum with loss of consciousness of unspecified duration, initial encounter (principal); R04.0 Epistaxis; Z20.822 Contact with and (suspected) exposure to COVID-19; W01.10XA Fall on same level from slipping, tripping and stumbling with subsequent striking against unspecified object, initial encounter; I13.0 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 kidney disease, or unspecified chronic kidney disease; E11.22 Type 2 diabetes mellitus with diabetic chronic kidney disease; I50.9 Heart failure, unspecified; N18.30 Chronic kidney disease, stage 3 unspecified; E03.9 Hypothyroidism, unspecified; E78.5 Hyperlipidemia, unspecified; F17.200 Nicotine dependence, unspecified, uncomplicated; Z88.2 Allergy status to sulfonamides; Z79.899 Other long term (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; Z79.52 Long term (current) use of systemic steroids; Z79.82 Long term (current) use of aspirin
CPT/HCPCS: 70450; 80053; 81001; 84484; 85025; 85610; 85730; 93005; 93010; 96374; 96375; 99285-25; C9803; J2270; J2405; U0003

== ENCOUNTER 2020-12-06 09:30 | Emergency (ER) | payer MEDICARE, OTHER ==
[~2020-12-06] VITALS: Ht 172.7 cm; Wt 90.7 kg
== END 2020-12-06 11:02 | disposition home or self-care (01) ==
LOC: ED 09:30
DX: S01.81XA Laceration without foreign body of other part of head, initial encounter (principal); W01.10XA Fall on same level from slipping, tripping and stumbling with subsequent striking against unspecified object, initial encounter; I13.0 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 kidney disease, or unspecified chronic kidney disease; E11.22 Type 2 diabetes mellitus with diabetic chronic kidney disease; E03.9 Hypothyroidism, unspecified; E78.5 Hyperlipidemia, unspecified; I50.9 Heart failure, unspecified; N18.30 Chronic kidney disease, stage 3 unspecified; Z87.891 Personal history of nicotine dependence; Z88.2 Allergy status to sulfonamides; Z79.82 Long term (current) use of aspirin; Z79.899 Other long term (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
CPT/HCPCS: 70450; 99283-25

== ENCOUNTER 2021-03-09 18:40 | Emergency (ER) | payer MEDICARE ==
[~2021-03-09] VITALS: Ht 172.7 cm; Wt 90.7 kg
--- OUTSIDE RECORDS SUMMARY | 2021-03-09 18:42 | XMS ---
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 Jarred VISIT COUNT (12 MO.) 6 [facility] TOTAL 6 NOTE: Visits indicate total known visits. ED/UCC VISIT TRACKING (12 MO.) 03/09/2021 18:40 [facility] [place] TYPE: Emergency COMPLAINT: - FEVER,VOMITING 12/06/2020 09:31 [facility] [place] TYPE: Emergency COMPLAINT: - FALL, HEAD INJURY DIAGNOSES: - Personal history of nicotine dependence - Fall on same level from slipping, tripping and stumbling with subsequent striking against unspecified object, initial encounter - 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 kidney disease, or unspecified chronic kidney disease - Allergy status to sulfonamides - Heart failure, unspecified - Hyperlipidemia, unspecified - Type 2 diabetes mellitus with diabetic chronic kidney disease - Other retirement (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 - Laceration without foreign body of other part of head, initial encounter - Chronic kidney disease, stage 3 unspecified - 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 - Unspecified injury of head, initial encounter - Hypothyroidism, unspecified 10/26/2020 09:36 [facility] [place] TYPE: Emergency COMPLAINT: - HEADACHE,(JUST OUT OF TRIOS) BLOOD IN NOSE DIAGNOSES: - Fall on same level from slipping, tripping and stumbling with subsequent striking against unspecified object, initial encounter - Other long term care administrator (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 - Nicotine dependence, unspecified, uncomplicated - Epistaxis - Hypothyroidism, unspecified - Contusion, laceration, and hemorrhage of cerebellum with loss of consciousness of unspecified duration, initial encounter - Heart failure, unspecified - Headache, unspecified - 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 - Allergy status to sulfonamides - 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 kidney disease, or unspecified chronic kidney disease - local company intermodal truck driver (current) use of systemic steroids - Hyperlipidemia, unspecified - Chronic kidney disease, stage 3 unspecified - Type 2 diabetes mellitus with diabetic chronic kidney disease 10/21/2020 12:17 [facility] [place] TYPE: Emergency COMPLAINT: - FALL DIAGNOSES: - Traumatic subdural hemorrhage with loss of consciousness of unspecified duration, initial encounter - Hypothyroidism, unspecified - Nicotine dependence, unspecified, uncomplicated - Fall on same level from slipping, tripping and stumbling with subsequent striking against unspecified object, initial encounter - Hyperlipidemia, unspecified - 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 - Heart failure, unspecified - Headache, unspecified - Bradycardia, unspecified - Type 2 diabetes mellitus with diabetic chronic kidney disease - correction (current) use of systemic steroids - Syncope [...] BROKE TOE DIAGNOSES: - Gout, unspecified - correction (current) use of aspirin - Hyperlipidemia, unspecified - Allergy status to sulfonamides - Type 2 diabetes mellitus with diabetic chronic kidney disease - Hypothyroidism, unspecified - Other long term care administrator (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 - Allergy status to sulfonamides - Chronic kidney disease, stage 3 unspecified - 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 kidney disease, or unspecified chronic kidney disease - correction (current) use of oral hypoglycemic drugs - [...] chronic kidney disease - Hypothyroidism, unspecified - 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 - Hyperlipidemia, unspecified - Shortness of breath - Other long term care administrator (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 - Allergy status to sulfonamides - Heart failure, unspecified - Personal history of nicotine dependence - Allergy status to sulfonamides - Type 2 diabetes mellitus with diabetic chronic kidney disease - correction (current) use of aspirin - Dyspnea, unspecified - Chronic kidney disease, stage 3 unspecified INPATIENT VISIT TRACKING (12 MO.) 10/26/2020 14:58 [place] [facility] TYPE: Surgical Services DIAGNOSES: - Type 2 diabetes mellitus with diabetic chronic kidney disease - Unspecified intracranial injury with loss of consciousness of unspecified duration, initial encounter - Chronic kidney disease, stage 3b - intraparenchymal hemorrage - Hypertensive chronic kidney disease with stage 1 through stage 4 chronic kidney disease, or unspecified chronic kidney disease 10/21/2020 17:34 [facility] COMPLAINT: - SYMPTOMATIC BRADYCARDIA; SYNCOPAL EVENTS DIAGNOSES: 0. Syncope and collapse 1. Unspecified atrial flutter 2. Traumatic subdural hemorrhage with loss of consciousness of unspecified duration, initial encounter 3. Urinary tract infection, site not specified 4. Acute kidney failure, unspecified 5. Syncope and collapse 6. Do not resuscitate 7. Unspecified atrial fibrillation 8. Anemia in chronic kidney disease 9. Hypertensive chronic kidney disease with stage 1 through stage 4 chronic kidney disease, or unspecified chronic kidney disease 10. Chronic kidney disease, stage 3 unspecified 11. Hypothyroidism, unspecified 12. Type 2 diabetes mellitus with diabetic chronic kidney disease 13. Bradycardia, unspecified 14. Nonrheumatic aortic (valve) stenosis 15. Unspecified right bundle-branch block 16. Hematuria, unspecified 17. Fall on same level, unspecified, initial encounter 18. Allergy status to sulfonamides 19. Unspecified place or not applicable 20. Personal history of nicotine dependence 21. correction (current) use of oral hypoglycemic drugs [email or web address]
[2021-03-09] MEDS ORDERED: ONDANSETRON ODT8 MG PO (22:48)
== END 2021-03-09 23:15 | disposition home or self-care (01) ==
LOC: ED 18:40
DX: K29.00 Acute gastritis without bleeding (principal); Z20.822 Contact with and (suspected) exposure to COVID-19; R53.1 Weakness; I13.0 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 kidney disease, or unspecified chronic kidney disease; E11.22 Type 2 diabetes mellitus with diabetic chronic kidney disease; E03.9 Hypothyroidism, unspecified; E78.5 Hyperlipidemia, unspecified; I50.9 Heart failure, unspecified; N18.30 Chronic kidney disease, stage 3 unspecified; Z87.891 Personal history of nicotine dependence; Z88.2 Allergy status to sulfonamides; Z79.899 Other long term (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; Z79.82 Long term (current) use of aspirin
CPT/HCPCS: 71045; 80053; 81001; 83690; 84484; 85025; 99285-25; C9803; J7121; U0003

== ENCOUNTER 2021-06-23 19:43 | Emergency (ER) | payer MEDICARE ==
[~2021-06-23] VITALS: Ht 172.7 cm; Wt 90.7 kg
[~2021-06-23 19:43] MED LIST changes: +ONDANSETRON ODT8 MG PO
--- OUTSIDE RECORDS SUMMARY | 2021-06-23 19:46 | XMS ---
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 Jarred VISIT COUNT (12 MO.) 6 [facility] TOTAL 6 NOTE: Visits indicate total known visits. ED/UCC VISIT TRACKING (12 MO.) 06/23/2021 19:44 [facility] [place] TYPE: Emergency COMPLAINT: - FALL, DIZZYNESS 03/09/2021 18:40 [facility] [place] TYPE: Emergency COMPLAINT: - FEVER,VOMITING DIAGNOSES: - Chronic kidney disease, stage 3 unspecified - rose grader (current) use of aspirin - Type 2 diabetes mellitus with diabetic chronic kidney disease - Other cilnical scientist (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 - 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 kidney disease, or unspecified chronic kidney disease - Personal history of nicotine dependence - Weakness - Acute gastritis without bleeding - Weakness - Vomiting, unspecified - Heart failure, unspecified - Hypothyroidism, unspecified - Hyperlipidemia, unspecified - Allergy status to sulfonamides 12/06/2020 09:31 [facility] [place] TYPE: Emergency [...] with diabetic chronic kidney disease - Other [facility] (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 - Laceration without foreign body of other part of head, initial encounter - Chronic kidney disease, stage 3 unspecified - rose grader (current) use of aspirin - Unspecified injury of head, initial encounter - Hypothyroidism, unspecified 10/26/2020 09:36 [facility] [place] TYPE: Emergency COMPLAINT: - HEADACHE,(JUST OUT OF TRIOS) BLOOD IN NOSE DIAGNOSES: - Fall on same level from slipping, tripping and stumbling with subsequent striking against unspecified object, initial encounter - Other chcf (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 - Nicotine dependence, unspecified, uncomplicated - Epistaxis - Hypothyroidism, unspecified - Contusion, laceration, and hemorrhage of cerebellum with loss of consciousness of unspecified duration, initial encounter - Heart failure, unspecified - Headache, unspecified - rose grader (current) use of aspirin - Allergy status to sulfonamides - 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 kidney disease, or unspecified chronic kidney disease - rose grader (current) use of systemic steroids - Hyperlipidemia, unspecified - Chronic kidney disease, stage 3 unspecified - Type 2 diabetes mellitus with diabetic chronic kidney disease 10/21/2020 12:17 [facility] [place] TYPE: Emergency COMPLAINT: - FALL DIAGNOSES: - Traumatic subdural hemorrhage with loss of consciousness of unspecified duration, initial encounter - Hypothyroidism, unspecified - Nicotine dependence, unspecified, uncomplicated - Fall on same level from slipping, tripping and stumbling with subsequent striking against unspecified object, initial encounter - Hyperlipidemia, unspecified - [facility] (current) use of aspirin - Heart failure, unspecified - Headache, unspecified - Bradycardia, unspecified - Type 2 diabetes mellitus with diabetic chronic kidney disease - [facility] (current) use of systemic steroids - Syncope [...] BROKE TOE DIAGNOSES: - Gout, unspecified - [facility] (current) use of aspirin - Hyperlipidemia, unspecified - Allergy status to sulfonamides - Type 2 diabetes mellitus with diabetic chronic kidney disease - Hypothyroidism, unspecified - Other cilnical scientist (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 - Allergy status to sulfonamides - Chronic kidney disease, stage 3 unspecified - 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 kidney disease, or unspecified chronic kidney disease - [facility] (current) use of oral hypoglycemic drugs - Heart failure, unspecified - Personal history of nicotine dependence - Chronic kidney disease, stage 3 unspecified INPATIENT VISIT TRACKING (12 MO.) 10/26/2020 14:58 [place] [facility] TYPE: Surgical Services DIAGNOSES: - Type 2 diabetes mellitus with diabetic chronic kidney disease - Unspecified intracranial injury with loss of consciousness of unspecified duration, initial encounter - Chronic kidney disease, stage 3b - intraparenchymal hemorrage - Hypertensive chronic kidney disease with stage 1 through stage 4 chronic kidney disease, or unspecified chronic kidney disease 10/21/2020 17:34 Anatoliy Grossshamika [facility] TYPE: Medical Surgical COMPLAINT: - SYMPTOMATIC [...] 20. Personal history of nicotine dependence 21. rose grader (current) use of oral hypoglycemic drugs [email or web address]
[2021-06-23] MEDS ORDERED: LISINOPRIL20 MG PO (20:55)
[2021-06-23] MEDS ORDERED: LEVOTHYROXINE100 MCG PO (20:55)
[2021-06-23] MEDS ORDERED: METFORMIN HCL500 M1 PO (20:55)
[2021-06-23] MEDS ORDERED: AMLODIPINE BESY10 MG PO (20:55)
--- NOTE | 2021-06-24 14:07 | EKG ---
[facility] [address] [place] [address] Signed Idioventricular rhythm Right bundle branch block Left anterior fascicular block Bifascicular block Cannot rule out Inferior infarct (masked by fascicular block?) , age undetermined Abnormal ECG When compared with ECG of 26-OCT-2020 10:00, Idioventricular rhythm has replaced Atrial fibrillation Vent. rate has decreased BY 42 BPM Confirmed by LOGAN DENISE DO ([id number]) on 06/24/2021 2:07:09 PM Electronically Signed By: LOGAN DENISE DO 06/24/21 1407 PATIENT NAME: JANICE FOSTER Electrocardiogram DATE OF : 40 PHYSICIAN: LOGAN DENISE DO REPORT #: [id number] REPORT IS CONFIDENTIAL AND NOT TO BE RELEASED WITHOUT AUTHORIZATION
--- NOTE | 2021-06-24 14:07 | EKG ---
[facility] [address] [facility] [place] [address] Signed Idioventricular rhythm Left axis deviation Right bundle branch block Abnormal ECG When compared with ECG of 23-JUN-2021 20:05, (Unconfirmed) No significant change was found Confirmed by LOGAN DENISE DO ([id number]) on 06/24/2021 2:07:07 PM Electronically Signed By: LOGAN DENISE DO 06/24/21 1407 PATIENT NAME: JANICE FOSTER Electrocardiogram DATE OF : 40 PHYSICIAN: LOGAN DENISE DO REPORT #: [id number] REPORT IS CONFIDENTIAL AND NOT TO BE RELEASED WITHOUT AUTHORIZATION
== END 2021-06-23 21:35 | disposition short-term general hospital (02) ==
LOC: ED 19:43
DX: R00.1 Bradycardia, unspecified (principal); I13.0 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 kidney disease, or unspecified chronic kidney disease; E11.22 Type 2 diabetes mellitus with diabetic chronic kidney disease; E03.9 Hypothyroidism, unspecified; E78.5 Hyperlipidemia, unspecified; I50.9 Heart failure, unspecified; N18.30 Chronic kidney disease, stage 3 unspecified; Z87.891 Personal history of nicotine dependence; Z88.2 Allergy status to sulfonamides; Z79.899 Other long term (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; Z79.82 Long term (current) use of aspirin; Z79.84 Long term (current) use of oral hypoglycemic drugs; Z20.822 Contact with and (suspected) exposure to COVID-19
CPT/HCPCS: 71045; 80053; 83735; 84484; 85025; 85610; 85730; 93005; 93010; 96374; 96375; 99285-25; C9803; J0461; J1265; J2405; U0003

== ENCOUNTER 2021-07-10 09:51 | Emergency (ER) | payer MEDICARE ==
[~2021-07-10] VITALS: Ht 172.7 cm; Wt 90.7 kg
[~2021-07-10 09:51] MED LIST changes: +AMLODIPINE BESY10 MG PO; +LEVOTHYROXINE100 MCG PO; +METFORMIN HCL500 M1 PO
--- OUTSIDE RECORDS SUMMARY | 2021-07-10 09:54 | XMS ---
PreManage Notification: JANICE FOSTER Security Vp Account Director Events No recent Security Events currently on file CRITERIA MET - [facility] - 2 Visits in 30 Days - PDMP CARE PROVIDERS EVERARDO MARQUEZ Physical Medicine \T\ Rehabilitation Current PHONE: [phone] NAI LARSEN Nurse Practitioner: Family Current [place] PHONE: [phone] ANABELL READ Nurse Practitioner: Gerontology Current PHONE: [phone] LIZY GUARDADO [facility] Medicine 10/28/2020-Current PHONE: [phone] Jillian has no Care Guidelines for this patient. Jarred VISIT COUNT (12 MO.) 7 FRED Ge TOTAL 7 NOTE: Visits indicate total known visits. ED/UCC VISIT TRACKING (12 MO.) 07/10/2021 09:52 [facility] [place] TYPE: Emergency COMPLAINT: - HEART ISSUE, AMS, WEAK 06/23/2021 19:44 [facility] [place] TYPE: Emergency COMPLAINT: - FALL DIAGNOSES: - custodial (current) use of aspirin - Heart failure, unspecified - 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 kidney disease, or unspecified chronic kidney disease - Dizziness and giddiness - Personal history of nicotine dependence - Other nursing home (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 - Hypothyroidism, unspecified - Allergy status to sulfonamides - Hyperlipidemia, unspecified - enrichment assistant (current) use of oral hypoglycemic drugs - Chronic kidney disease, stage 3 unspecified - Bradycardia, unspecified - Type 2 diabetes mellitus with diabetic chronic kidney disease 03/09/2021 18:40 [facility] [place] TYPE: Emergency COMPLAINT: - FEVER,VOMITING DIAGNOSES: - Chronic kidney disease, stage 3 unspecified - custodial (current) use of aspirin - Type 2 diabetes mellitus with diabetic chronic kidney disease - Other nursing home (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 - Hypertensive heart and [...] with diabetic chronic kidney disease - Other long wall shear operator (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 - Laceration without foreign body of other part of head, initial encounter - Chronic kidney disease, stage 3 unspecified - enrichment assistant (current) use of aspirin - Unspecified injury of head, initial encounter - Hypothyroidism, unspecified 10/26/2020 09:36 [facility] [place] TYPE: Emergency COMPLAINT: - HEADACHE,(JUST OUT OF TRIOS) BLOOD IN NOSE DIAGNOSES: - Fall on same level from slipping, tripping and stumbling with subsequent striking against unspecified object, initial encounter - Other nursing home (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 - Nicotine dependence, unspecified, uncomplicated - Epistaxis - Hypothyroidism, unspecified - Contusion, laceration, and hemorrhage of cerebellum with loss of consciousness of unspecified duration, initial encounter - Heart failure, unspecified - Headache, unspecified - custodial (current) use of aspirin - Allergy status to sulfonamides - 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 kidney disease, or unspecified chronic kidney disease - custodial (current) use of systemic steroids - Hyperlipidemia, [...] object, initial encounter - Hyperlipidemia, unspecified - custodial (current) use of aspirin - Heart failure, unspecified - Headache, unspecified - Bradycardia, unspecified - Type 2 diabetes mellitus with diabetic chronic kidney disease - custodial (current) use of systemic steroids - Syncope [...] BROKE TOE DIAGNOSES: - Gout, unspecified - enrichment assistant (current) use of aspirin - Hyperlipidemia, unspecified - Allergy status to sulfonamides - Type 2 diabetes mellitus with diabetic chronic kidney disease - Hypothyroidism, unspecified - Other long wall shear operator (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 - Allergy status to sulfonamides - Chronic kidney disease, stage 3 unspecified - 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 kidney disease, or unspecified chronic kidney disease - custodial (current) use of oral hypoglycemic drugs - Heart failure, unspecified - Personal history of nicotine dependence - Chronic kidney disease, stage 3 unspecified INPATIENT VISIT TRACKING (12 MO.) 06/23/2021 22:20 [facility] [place] TYPE: Medical Surgical DIAGNOSES: - Conduction disorder, unspecified - Symptomatic Bradycardia - Chronic kidney disease, stage 3b - Bradycardia, unspecified - Mixed hyperlipidemia - Atherosclerotic heart disease of [place] coronary artery with other forms of angina pectoris - Acute respiratory failure with hypoxia - Hypertensive chronic kidney disease with stage 1 through stage 4 chronic kidney disease, or unspecified chronic kidney disease - Gastro-esophageal reflux disease without esophagitis - Essential (primary) hypertension - Type 2 diabetes mellitus with diabetic neuropathy, unspecified - Unspecified dementia with behavioral disturbance - Anemia in chronic kidney disease [facility] DIAGNOSES: - Type 2 diabetes mellitus with diabetic chronic kidney disease - Unspecified intracranial injury with loss of consciousness of unspecified duration, initial encounter - Chronic kidney disease, stage 3b - intraparenchymal hemorrage - Hypertensive chronic kidney disease with stage 1 through stage 4 chronic kidney disease, or unspecified chronic kidney disease 10/21/2020 17:34 [facility] [place] TYPE: Medical Surgical COMPLAINT: - SYMPTOMATIC BRADYCARDIA; [...] 20. Personal history of nicotine dependence 21. custodial (current) use of oral hypoglycemic drugs [id number]
--- NOTE | 2021-07-12 07:40 | EKG ---
[facility] [address] [facility] [place] [address] Signed Wide QRS rhythm Left axis deviation Right bundle branch block Inferior infarct , age undetermined Abnormal ECG No previous ECGs available Confirmed by LANE RODRÍGUEZ MD ([id number]) on 07/12/2021 7:40:37 AM Electronically Signed By: LANE RODRÍGUEZ MD 07/12/21 0740 PATIENT NAME: JANICE FOSTER HOLAARIEL Electrocardiogram DATE OF : 40 PHYSICIAN: LANE RODRÍGUEZ MD REPORT #: [id number] REPORT IS CONFIDENTIAL AND NOT TO BE RELEASED WITHOUT AUTHORIZATION
== END 2021-07-10 14:25 | disposition short-term general hospital (02) ==
LOC: ED 09:51
DX: I13.0 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 kidney disease, or unspecified chronic kidney disease (principal); N18.30 Chronic kidney disease, stage 3 unspecified; I50.9 Heart failure, unspecified; E11.22 Type 2 diabetes mellitus with diabetic chronic kidney disease; E87.5 Hyperkalemia; R09.02 Hypoxemia; Z20.822 Contact with and (suspected) exposure to COVID-19; N17.9 Acute kidney failure, unspecified; E03.9 Hypothyroidism, unspecified; E78.5 Hyperlipidemia, unspecified; Z87.891 Personal history of nicotine dependence; Z88.2 Allergy status to sulfonamides; Z79.899 Other long term (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; Z79.84 Long term (current) use of oral hypoglycemic drugs
CPT/HCPCS: 36600; 51798; 71045; 80048; 80053; 82803; 83735; 83880; 84484; 85025; 93005; 93010; 94644; 99285-25; C9803; J0610; J1815; J1940; U0003

== ENCOUNTER 2021-08-14 10:34 | Inpatient (IN) | payer MEDICARE, OTHER ==
[~2021-08-14] VITALS: Ht 172.7 cm; Wt 81.0 kg
[2021-08-14] MEDS ORDERED: LIPITOR40 MG PO (11:21)
[2021-08-14] MEDS ORDERED: TAMSULOSIN HCL0.4 MG PO (11:22)
[2021-08-14] MEDS ORDERED: OLANZAPINE ODT5 MG PO (11:22)
[2021-08-14] MEDS ORDERED: FINASTERIDE5 MG PO (11:23)
--- NOTE | 2021-08-14 18:52 | EKG ---
[facility] [address] [facility] [place] [address] Signed Ventricular-paced rhythm Abnormal ECG When compared with ECG of 10-JUL-2021 09:57, Electronic ventricular pacemaker has replaced Wide QRS rhythm Confirmed by ARON SCHULTZ MD ([id number]) on 08/14/2021 6:52:40 PM Electronically Signed By: ARON SCHULTZ MD 08/14/211851 PATIENT NAME: JANICE FOSTER Electrocardiogram DATE OF : 40 PHYSICIAN: ARON SCHULTZ MD REPORT #: [id number] REPORT IS CONFIDENTIAL AND NOT TO BE RELEASED WITHOUT AUTHORIZATION
== END 2021-08-17 15:05 | disposition home or self-care (01) | DRG 291 ==
LOC: ED 10:34 → CCU 13:27 → MS 08-15 14:30
PROVIDERS: ADMIT Internal Medicine; ATTEND Internal Medicine
DX: I13.0 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 kidney disease, or unspecified chronic kidney disease (principal); I50.33 Acute on chronic diastolic (congestive) heart failure; J96.01 Acute respiratory failure with hypoxia; J96.02 Acute respiratory failure with hypercapnia; N17.9 Acute kidney failure, unspecified; N18.30 Chronic kidney disease, stage 3 unspecified; Z20.822 Contact with and (suspected) exposure to COVID-19; Z79.899 Other long term (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; D63.1 Anemia in chronic kidney disease; E11.65 Type 2 diabetes mellitus with hyperglycemia; E11.22 Type 2 diabetes mellitus with diabetic chronic kidney disease; I49.5 Sick sinus syndrome; Z95.0 Presence of cardiac pacemaker; N40.0 Benign prostatic hyperplasia without lower urinary tract symptoms; Z88.2 Allergy status to sulfonamides; I45.10 Unspecified right bundle-branch block; I25.10 Atherosclerotic heart disease of native coronary artery without angina pectoris; E11.40 Type 2 diabetes mellitus with diabetic neuropathy, unspecified; I42.9 Cardiomyopathy, unspecified; E03.9 Hypothyroidism, unspecified; K21.9 Gastro-esophageal reflux disease without esophagitis; E78.5 Hyperlipidemia, unspecified; Z87.891 Personal history of nicotine dependence; Z79.82 Long term (current) use of aspirin
CPT/HCPCS: 36415; 71045; 80048; 80053; 82728; 82803; 83036; 83550; 83735; 83880; 84484; 85025; 93005; 93010; 94660; 97166; 97530; C9803; J1650; J1815; J1940; U0003

== ENCOUNTER 2021-09-14 18:08 | Emergency (ER) | payer MEDICARE, OTHER ==
[~2021-09-14] VITALS: Ht 172.7 cm; Wt 80.0 kg
[~2021-09-14 18:08] MED LIST changes: +FINASTERIDE5 MG PO; +LIPITOR40 MG PO; +OLANZAPINE ODT5 MG PO; +TAMSULOSIN HCL0.4 MG PO
== END 2021-09-14 19:19 | disposition home or self-care (01) ==
LOC: ED 18:08
DX: J06.9 Acute upper respiratory infection, unspecified (principal); Z20.822 Contact with and (suspected) exposure to COVID-19; E03.9 Hypothyroidism, unspecified; E78.5 Hyperlipidemia, unspecified; I13.0 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 kidney disease, or unspecified chronic kidney disease; E11.22 Type 2 diabetes mellitus with diabetic chronic kidney disease; I50.9 Heart failure, unspecified; N18.30 Chronic kidney disease, stage 3 unspecified; Z87.891 Personal history of nicotine dependence; Z88.2 Allergy status to sulfonamides; Z79.899 Other long term (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; Z79.82 Long term (current) use of aspirin; Z79.84 Long term (current) use of oral hypoglycemic drugs
CPT/HCPCS: 99283; C9803; U0003

== ENCOUNTER 2021-11-09 18:08 | Emergency (ER) | payer MEDICARE, OTHER ==
[~2021-11-09] VITALS: Ht 172.7 cm; Wt 80.0 kg
[2021-11-09] MEDS ORDERED: TENORMIN50 MG PO (18:29)
[2021-11-09] MEDS ORDERED: VITRON-C TABLE1 EACH PO (18:33)
[2021-11-09] MEDS ORDERED: LEVOTHYROXINE100 MC2 PO (18:39)
--- NOTE | 2021-11-10 08:30 | EKG ---
[facility] [address] [place] [address] Signed Ventricular-paced rhythm Abnormal ECG When compared with ECG of 14-AUG-2021 10:51, Vent. rate has increased BY [address] by LANE RODRÍGUEZ MD ([id number]) on 11/10/2021 8:30:04 AM Electronically Signed By: LANE RODRÍGUEZ MD 11/10/21 0830 PATIENT NAME: JANICE FOSTER Electrocardiogram DATE OF : 40 PHYSICIAN: LANE RODRÍGUEZ MD REPORT #: [id number] REPORT IS CONFIDENTIAL AND NOT TO BE RELEASED WITHOUT AUTHORIZATION
== END 2021-11-09 21:20 | disposition home or self-care (01) ==
LOC: ED 18:08
DX: U07.1 COVID-19 (principal); I13.0 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 kidney disease, or unspecified chronic kidney disease; E11.22 Type 2 diabetes mellitus with diabetic chronic kidney disease; I50.9 Heart failure, unspecified; N18.4 Chronic kidney disease, stage 4 (severe); E03.9 Hypothyroidism, unspecified; E78.5 Hyperlipidemia, unspecified; Z87.891 Personal history of nicotine dependence; Z88.2 Allergy status to sulfonamides; Z79.82 Long term (current) use of aspirin; Z79.899 Other long term (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; Z79.84 Long term (current) use of oral hypoglycemic drugs
CPT/HCPCS: 36415; 51701; 71045; 80053; 81001; 83605; 85025; 87502; 93005; 93010; 99285-25; J7040; U0003

== ENCOUNTER 2021-11-11 09:14 | Observation (INO) | payer MEDICARE, OTHER ==
[~2021-11-11] VITALS: Ht 172.7 cm; Wt 77.9 kg
[~2021-11-11 09:14] MED LIST changes: +LEVOTHYROXINE100 MC2 PO; +VITRON-C TABLE1 EACH PO
--- OUTSIDE RECORDS SUMMARY | 2021-11-11 09:16 | XMS ---
PreManage Notification: JANICE FOSTER Security Reed Fixer Events No recent Security Events currently on file CRITERIA MET - [facility] - 2 Visits in 30 Days - 6 ED Visits in 6 Months CARE PROVIDERS EVERARDO MARQUEZ Physical Medicine \T\ Rehabilitation Current PHONE: [phone] NAI LARSEN Nurse Practitioner: Family Bronson [place] PHONE: [phone] Darlene Miranda Planisher/Laborer [facility] 09/09/2021-Current PHONE: [phone] ANABELL READ Nurse Practitioner: Gerontology Current PHONE: [phone] [facility] PHONE: Unknown Jillian has no Care Guidelines for this patient. Jarred VISIT COUNT (12 MO.) 1 Noel Ge TOTAL 9 NOTE: Visits indicate total known visits. ED/UCC VISIT TRACKING (12 MO.) 11/11/2021 09:15 [facility] [place] TYPE: Emergency COMPLAINT: - POSS STROKE 11/10/2021 10:26 [facility] [place] TYPE: Emergency DIAGNOSES: - Hand Swelling - Dehydration - Type 2 diabetes mellitus with diabetic neuropathy, unspecified - Other specified soft tissue disorders - Anemia in chronic kidney disease - Essential (primary) hypertension - Chronic kidney disease, stage 3b - covid pos - Presence of cardiac pacemaker - COVID-19 11/09/2021 18:08 [facility] [place] TYPE: Emergency COMPLAINT: - WEAKNESS 09/14/2021 18:08 [facility] [place] TYPE: Emergency COMPLAINT: - HEADACHE DIAGNOSES: - moderate needs teacher (current) use of oral hypoglycemic drugs - Personal history of nicotine dependence - Heart failure, unspecified - Type 2 diabetes mellitus with diabetic chronic kidney disease - Headache, unspecified - 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 kidney disease, or unspecified chronic kidney disease - Allergy status to sulfonamides - Contact with and (suspected) exposure to COVID-19 - Acute upper respiratory infection, unspecified - Chronic kidney disease, stage 3 unspecified - Hypothyroidism, unspecified - Other computer systems software engineer (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 - Hyperlipidemia, unspecified - moderate needs teacher (current) use of aspirin 08/14/2021 10:34 [facility] [place] TYPE: Emergency COMPLAINT: - DIFFICULTY BREATHING WHEN STANDING 07/10/2021 09:52 [facility] [place] TYPE: Emergency COMPLAINT: - HEART ISSUE, AMS, WEAK DIAGNOSES: - 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 kidney disease, or unspecified chronic kidney disease - Hyperkalemia - Contact with and (suspected) exposure to COVID-19 - Other residential (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 - moderate needs teacher (current) use of oral hypoglycemic drugs - Personal history of nicotine dependence - Heart failure, unspecified - Hypoxemia - Chronic kidney disease, stage 3 unspecified - Hypothyroidism, unspecified - Hyperlipidemia, unspecified - Allergy status to sulfonamides - Shortness of breath - Type 2 diabetes mellitus with diabetic chronic kidney disease - Acute kidney failure, unspecified 06/23/2021 19:44 [facility] [place] TYPE: Emergency COMPLAINT: - FALL DIAGNOSES: - detention (current) use of aspirin - Heart failure, unspecified - 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 kidney disease, or unspecified chronic kidney disease - Dizziness and giddiness - Personal history of nicotine dependence - Other residential (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 - Hypothyroidism, unspecified - Contact with and (suspected) exposure to COVID-19 - Allergy status to sulfonamides - Hyperlipidemia, unspecified - moderate needs teacher (current) use of oral hypoglycemic drugs - Chronic kidney disease, stage 3 unspecified - Bradycardia, unspecified - Type 2 diabetes mellitus with diabetic chronic kidney disease 03/09/2021 18:40 [facility] [place] TYPE: Emergency COMPLAINT: - FEVER,VOMITING DIAGNOSES: - Chronic kidney disease, stage 3 unspecified - moderate needs teacher (current) use of aspirin - Type 2 diabetes mellitus with diabetic chronic kidney disease - Other computer systems software engineer (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 - Hypertensive heart and [...] with diabetic chronic kidney disease - Other computer systems software engineer (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 - Laceration without foreign body of other part of head, initial encounter - Chronic kidney disease, stage 3 unspecified - moderate needs teacher (current) use of aspirin - Unspecified injury of head, initial encounter - Hypothyroidism, unspecified INPATIENT VISIT TRACKING (12 MO.) 08/14/2021 13:27 [facility] [place] TYPE: Medical Surgical COMPLAINT: - RESPIRATORY FAILURE DIAGNOSES: - Hyperlipidemia, unspecified - Acute respiratory failure with hypercapnia - Chronic kidney disease, stage 3 unspecified - Unspecified right bundle-branch block - 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 kidney disease, or unspecified chronic kidney disease - Type 2 diabetes mellitus with diabetic chronic kidney disease - Acute on chronic diastolic (congestive) heart failure - Other computer systems software engineer (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 - moderate needs teacher (current) use of aspirin - Hypothyroidism, unspecified - Sick sinus syndrome - Type 2 diabetes mellitus with hyperglycemia - Gastro-esophageal reflux disease without esophagitis - Cardiomyopathy, unspecified - Contact with and (suspected) exposure to COVID-19 - Presence of cardiac pacemaker - Allergy status to sulfonamides - Benign prostatic hyperplasia without lower urinary tract symptoms - Anemia in chronic kidney disease - Personal history of nicotine dependence - Acute respiratory failure with hypoxia - Atherosclerotic heart disease of [place] coronary artery without angina pectoris - Type 2 diabetes mellitus with diabetic neuropathy, unspecified - Acute kidney failure, unspecified [facility]21 [facility] DIAGNOSES: - Acute systolic (congestive) heart failure - Chronic kidney disease, stage 3b - Hypertensive chronic kidney disease with stage 1 through stage 4 chronic kidney disease, or unspecified chronic kidney disease - Type 2 diabetes mellitus with diabetic neuropathy, unspecified - Encounter for adjustment and management of other part of cardiac pacemaker - Other retention of urine - Congestive heart failure, hypoxia - Atherosclerotic heart disease of [place] coronary artery with other forms of angina pectoris 06/23/2021 22:20 [facility] DIAGNOSES: - Conduction disorder, unspecified - Symptomatic Bradycardia - Chronic kidney disease, stage 3b - Bradycardia, unspecified - Mixed hyperlipidemia - Atherosclerotic heart disease of [place] coronary artery with other forms of angina [...] disturbance - Anemia in chronic kidney disease [id number]
--- NOTE | 2021-11-11 13:49 | NUR ---
PATIENT ARRIVES FROM ER TO MS ROOM 110. PT ORIENTED X4 ALTHOUGH DROWSY. PATIENT ON RA, VSS, BREATHING EQUAL AND UNLABORED. CRACKLES IN R LOWER LUNG BASE. HRR, PATIENT HAS A PACEMAKER. SKIN COOL AND DRY, PATIENT MINIMALLY RESPONSIVE TO TOUCH. STRENGTH 4/5, DISCREPANCIES ON RIGHT ARM AND LEG. PT ABLE TO VOID IN URINAL, 300 ML OUT, CLEAR AND YELLOW. IVs WNL. SWELLING +2 IN RIGHT ARM, TRACE TO 1+ IN BLE. SCDS IN PLACE, FEET ELEVATED. PT DISCUSSES HOME CARE GIVERS, ALONE AT THIS TIME. PT STATES CARE GIVERS COME TWICE A DAY. NO FURTHER NEEDS IDENTIFIED AT THIS TIME. PT EDUCATED MATERIAL MAN LIGHT.
--- NOTE | 2021-11-11 15:30 | NUR ---
Pt working with physical therapy, ambulating around room with FWW.
--- NOTE | 2021-11-11 16:35 | NUR ---
Rounded on patient who is resting in bed with eyes closed. Tele in place, pt on RA. RR even and unlabored and no needs identified at this time, call light in reach.
[2021-11-11] MEDS ORDERED: AMLODIPINE BES2.5 MG PO (17:18)
[2021-11-11] MEDS ORDERED: EUTHYROX100 MCG PO (17:20)
[2021-11-11] MEDS ORDERED: LISINOPRIL10 MG PO (17:22)
[2021-11-11] MEDS ORDERED: OLANZAPINE5 MG PO (17:23)
--- NOTE | 2021-11-11 18:07 | NUR ---
Scheduled medications administered and assessment complete. Pt able to take pills whole with water and passes swallow screen. Pt intitially difficult to arouse, severely [place], but once awake pt responsive to nurses and interactive with conversation. Vitals WNL, I/Os complete, pt voiding QS. Pt did not want dinner originally but accepts a sandwich box. IVF infusing wNL. Tele in place, SCDs on. No other needs at this time, call light in reach and bed alarm on. patient in view of nurses station, curtain open.
--- NOTE | 2021-11-11 19:25 | NUR ---
RECEIVED REPORT FROM DAY SHIFT RN. PATIENT RESTING IN BED. NO FURTHER NEEDS NOTED. CALL LIGHT WITHIN REACH.
--- NOTE | 2021-11-11 21:09 | EKG ---
[facility] [address] [facility] [place], [place] [address] Signed Ventricular-paced rhythm Abnormal ECG When compared with ECG of 09-NOV-2021 18:11, No significant change was found Confirmed by LANE RODRÍGUEZ MD ([id number]) on 11/11/2021 9:09:19 PM Electronically Signed By: LANE RODRÍGUEZ MD 11/11/212108 PATIENT NAME: JANICE FOSTER Electrocardiogram DATE OF : 40 PHYSICIAN: LANE RODRÍGUEZ MD REPORT #: [id number] REPORT IS CONFIDENTIAL AND NOT TO BE RELEASED WITHOUT AUTHORIZATION
--- NOTE | 2021-11-11 21:13 | NUR ---
ASSESSMENT COMPLETED. BS TAKEN & AND RECORDED. BS LEVELS WNL PER SLIDING SCALE, INSULIN NOT INDICATED AT THIS TIME. VITALS TAKEN & RECORDED. INPUT AND OUTPUT RECORDED. IV FLUIDS RUNNING PER ORDERED. PATIENT DENIES PAIN. ICD'S APPLIED & RUNNING. NO FURTHER NEEDS NOTED. CALL LIGHT WITHIN REACH.
--- NOTE | 2021-11-11 23:50 | NUR ---
PATIENT IN BED RESTING. RIGHT UPPER ARM IV SL PER ORDER, WATER REFRESHED. PATIENT DENIES PAIN. NO FURTHER NEEDS NOTED. CALL LIGHT WITHIN REACH.
--- NOTE | 2021-11-12 03:02 | NUR ---
ASSESSMENT COMPLETED. VITALS TAKEN & RECORDED. INPUT & OUPUT RECORDED. ASSISTED PATIENT TO RESTROOM BY 1PA W/FWW. PATIENT ABLE TO VOIDE. PATIENT INCONTINENT OF STOOL. ATTENDS REPLACED. PATIENT BACK IN BED. SCD'S IN PLACE. PATIENT DENIES PAIN. WATER REFRESHED. NO FURTHER NEEDS NOTED. PILLOW PLACED UNDER BILATERAL LEGS TO ELEVATE. CALL LIGHT IN PLACE.
--- NOTE | 2021-11-12 06:32 | NUR ---
VITALS TAKEN & RECORDED. INPUT & OUTPUT RECORDED. SCHEDULED MEDS GIVEN ORDERED. PATIENT DENIES PAIN. LA & RIGHT UPPER ARM IV'S FLUSHED AND SL. SCD's IN PLACE. NO FURTHER NEEDS NOTED. CALL LIGHT WITHIN REACH.
--- NOTE | 2021-11-12 08:45 | NUR ---
REPORT RECEIVED FROM NIGHT RN AND PT. CARE RESUMED. PT. IS DROWSY BUT AWAKENS TO VOICE AND ORIENTED TO ALL. HE DENIES PAIN AND REFUSES TO GET OUT OF BED AND INTO THE CHAIR. LUNGS DIM. IN BASES. HE IS ON ROOM AIR. RIGHT ARM AND LEG ARE WEAKER THAN LEFT SIDE. SPEECH IS CLEAR. RIGHT SHOULDER IV PULLED WITH CATH INTACT AND WAS A FIELD START. PT. ASSISTED WITH SETTING UP FOR BREAKFAST. DISCUSSED SAFETY AND POC. LEFT RESTING WITH CALL LIGHT IN REACH.
--- NOTE | 2021-11-12 10:40 | NUR ---
Pt sleeping, not awakened.
--- NOTE | 2021-11-12 11:14 | NUR ---
VITALS TAKEN PRIOR TO BLOOD ADMIN. PT. EDUCATED ON S/SX OF BLOOD ADMIN. BLOOD INFUSING AT 75ML/HR FOR 15 MIN.
--- NOTE | 2021-11-12 13:43 | NUR ---
PT IS LAYING IN BED I&O AND VS CHARTED. CALL LIGHT WITHIN REACH NO FURTHER TASKS AT THIS TIME
--- NOTE | 2021-11-12 13:52 | NUR ---
DUE TO PRECAUTIONS, I AM UNABLE TO VISIT IN PERSON. WILL FOLLOW
--- NOTE | 2021-11-12 19:33 | NUR ---
RECEIVED REPORT FROM DAY SHIFT NURSE. PATIENT AWAKE & IN RECLINER. NO FURTHER NEEDS NOTED. CALL LIGHT WITHIN REACH.
--- NOTE | 2021-11-12 20:16 | NUR ---
ASSESSMENT COMPLETED. PATIENT AWAKE & IN RECLINER. ASSISTED PATIENT TO RESTROOM BY 1PA W/FWW, PATIENT WAS ABLE TO VOID. VITALS TAKE & RECORDED. INPUT & OUTPUT RECORDED. PATIENT BACK IN BED. BS TAKEN, MEDICATION ADMINISTERED ORDERED. WATER REFRESHED. SCD'S IN PLACE. PATIENT DENIES PAIN. NO FURTHER NEEDS NOTED. BED ALARM SET. CALL LIGHT WITHIN REACH.
--- NOTE | 2021-11-12 22:43 | NUR ---
ASSISTED PATIENT TO THE RESTROOM PER 1PA W/FWW. PATIENT ABLE TO VOID. PATIENT BACK IN BED RESTING. NO FURTHER NEEDS NOTED. SCD'S IN PLACE. BED ALARM SET. CALL LIGHT WITHIN REACH.
--- NOTE | 2021-11-13 00:16 | NUR ---
PATIENT IN BED RESTING. RR 14. NO FURTHER NEEDS NOTED. BED ALARM SET. CALL LIGHT WITHIN REACH.
--- NOTE | 2021-11-13 00:52 | NUR ---
PATIENT REQUESTED ASSISTANCE TAKING OFF SCD'S. EDUCATED PATIENT ON IMPORTANCE OF SCD'S, PATIENT VERBALIZES UNDERSTANDING & WANTS SCD'S REMOVED AT THIS TIME. ELEVATED BILATERAL LOWER EXTREMITIES WITH A PILLOW. PATIENT DENIES ANY FURTHER NEEDS. WATER REFRESHED, BED ALARM SET. CALL LIGHT WITHIN REACH.
--- NOTE | 2021-11-13 03:48 | NUR ---
PATIENT RESTING IN BED. RR 14 NO FURTHER NEEDS NOTED. BED ALARM SET. CALL LIGHT WITHIN REACH.
--- NOTE | 2021-11-13 06:14 | NUR ---
ASSESSMENT COMPLETED. URINAL EMPTIED. VITALS TAKEN & RECORDED INPUT & OUTPUT RECORDED. SCHEDULED MEDICATION GIVEN ORDERDED. WATER REFRESHED. PATIENT DENIES PAIN. LAB PRESENT IN ROOM. PATIENT REQUESTS TO LEAVE SCD'S OFF. PROVIDED EDUCATION REGARDING THE IMPORTANCE OF SCD'S, PATIENT VERBALIZES UNDERSTANDING AND WISHES TO LEAVE SCD'S OFF. IV MEDS RUNNING ORDERED. NO FURTHER NEEDS NOTED. BED ALARM SET. CALL LIGHT WITHIN REACH.
[2021-11-13] MEDS ORDERED: LISINOPRIL20 MG PO (08:47)
--- NOTE | 2021-11-13 09:00 | NUR ---
REPORT RECEIVED FROM NIGHT RN AND PT. CARE RESUMED. PT. IS ALERT AND ORIENTED TO ALL. BLE ARE EQUAL STRENGTH AND NO EDEMA. RUE IS SLIGHTLY WEAKER IN SHEET METAL SUPERINTENDENT STRENGTH AND PT. PRIMARILY USES LUE. IV WNL AND SALINE LOCKED. LUNGS DIM. IN BASES AND PT. HAS AN OCCASIONAL PRODUCTIVE COUGH. HE IS UP IN THE CHAIR. ASSISTED WITH BREAKFAST. PT. LEFT RESTING WITH CALL LIGHT IN REACH.
[2021-11-13] MEDS ORDERED: LISINOPRIL10 MG PO (09:06)
--- NOTE | 2021-11-13 09:36 | NUR ---
MED REC COMPLETE
--- NOTE | 2021-11-13 10:45 | NUR ---
Spoke with pt and he is very hard of hearing. He has covid and I have an N95 in [address] and it is almost impossible for him to hear me. Pt states han larsen lives at the [facility] and has a CG names Anupama, she is paid by the state and sees him in the am and pm. She brings him breakfast daily. The health safety coordinator, Irlanda, of the [employer] takes him to his appointments and takes him grocery shopping. He asks I call his cg for additional questions and wants to go home today. I called Irlanda the phone contact. She states her daughter is his state paid cg and he has 29 hrs/2 wks. She rants about [facility] and how they have done nothing for him and she has called multiple times to have his hours increased. She states she has tried several times to get him into a SNF and no one will take him. With further conversation, pt was in correction for 10 yrs and she states she thinks it was related to Pornographic pictures. I let her know I will check if any SNF in our area will take him, she also stated he remains on probation. I let her know I can check. I called and spoke with [facility] as they have bed open. She checked with her admin and they state they could not take him. Pt also has [place] with his medicare and they do not accept outof state. Other SNFs are full. I then called [facility] and spoke with ruel GEORGE and asked if they could increase his hrs. She states he is due for reevaluation at the end of the month, if they reschedule it will fall after the date he is already scheduled for.
--- NOTE | 2021-11-13 11:00 | NUR ---
ROUNDING ON PT. HE IS RESTING IN BED WITH EYES CLOSED AND RESPIRATIONS ARE EVEN AND UNLABORED.
[2021-11-13] MEDS ORDERED: AMLODIPINE BES2.5 MG PO (14:21)
[2021-11-13] MEDS ORDERED: FUROSEMIDE40 MG PO (14:22)
--- NOTE | 2021-11-13 14:30 | NUR ---
Jaron with staff as pt is being discharge. I will call safety transport. Called several times and message left. Returned to the nurses station to let them know Ihave been able to reach. They ask me to speak with his cg. It is Irlanda his friend. She is very upset saying she is suing the hospital as pt cannot return. I let her know he was walking in the room with a PT and he is at [facility] and ready to go home. She states fine, but she will not pick him up. I let her know we will discharge him by taxi. She continues to state she will cortney everyone involved. Yesi from snow removing supervisor was able to reach Anupama the cg and asks if she could get pts walker for him when he gets home.
--- NOTE | 2021-11-13 14:33 | NUR ---
ALL DISCHARGE INSTRUCTIONS REVIEWED AND QUESTIONS ANSWERED. IV REMOVED BY RN EMBEDDED. PT. DID NOT HAVE ANY BELONGINGS WITH HIM AND LEFT IN GOWN IN WHEELCHAIR WITH RN EMBEDDED AND PICKED UP BY TAXI. VITALS STABLE AND PT. DENIES PAIN OR SOB.
--- NOTE | 2021-11-13 15:00 | NUR ---
Called and spoke with Dmitry at [facility]. Updated I have a pt to send home, and asked what their criteria is for covid pts. He states as long as they are more than 3 days post diagnosis they will transport as long as they are masked. Let him know pt will be ready in a few minutes. He will transport pt himself.
--- NOTE | 2021-11-13 16:00 | NUR ---
Chart faxed to [facility] at pts request. Called [facility] and they are at least a week out, extension added and Dr. Charles signed.
== END 2021-11-13 15:45 | disposition home or self-care (01) ==
LOC: ED 09:14 → MS 09:16
PROVIDERS: ADMIT Internal Medicine; ATTEND Internal Medicine
DX: N17.9 Acute kidney failure, unspecified (principal); I13.0 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 kidney disease, or unspecified chronic kidney disease; E11.22 Type 2 diabetes mellitus with diabetic chronic kidney disease; N18.4 Chronic kidney disease, stage 4 (severe); E03.9 Hypothyroidism, unspecified; E78.5 Hyperlipidemia, unspecified; I50.9 Heart failure, unspecified; U07.1 COVID-19; D63.1 Anemia in chronic kidney disease; N40.0 Benign prostatic hyperplasia without lower urinary tract symptoms; Z95.0 Presence of cardiac pacemaker; Z87.891 Personal history of nicotine dependence; Z88.2 Allergy status to sulfonamides; Z79.82 Long term (current) use of aspirin
CPT/HCPCS: 36415; 70450; 71045; 80048; 80053; 81001; 85025; 85610; 85730; 86850; 86900; 86901; 86922; 92523; 93005; 93010; 97110; 97116; 97161; 97530; 99285-25; G0378; J1815; J7030; J7121; P9016

== ENCOUNTER 2022-01-30 19:32 | Emergency (ER) | payer MEDICARE, OTHER ==
[~2022-01-30] VITALS: Ht 172.7 cm; Wt 77.7 kg
[~2022-01-30 19:32] MED LIST changes: +AMLODIPINE BES2.5 MG PO; +EUTHYROX100 MCG PO; +OLANZAPINE5 MG PO
--- OUTSIDE RECORDS SUMMARY | 2022-01-30 19:41 | XMS ---
PreManage Notification: JANICE FOSTER Security Shopping Investigator Events No recent Security Events currently on file CRITERIA MET - 6 ED Visits in 6 Months CARE PROVIDERS EVERARDO MARQUEZ Physical Medicine \T\ Rehabilitation Current PHONE: [phone] NAI LARSEN Nurse Practitioner: Family Current [place] PHONE: [phone] Darlene Miranda Glue Mill Operator/Survey Compiler 11/09/2021-Current PHONE: [phone] ANABELL READ Nurse Practitioner: Gerontology Current PHONE: [phone] [facility]Current PHONE: Unknown Jillian has no Care Guidelines for this patient. Jarred VISIT COUNT (12 MO.) 1 Noel Ge TOTAL 9 NOTE: Visits indicate total known visits. ED/UCC VISIT TRACKING (12 MO.) 01/30/2022 19:32 [facility] [place] Emergency COMPLAINT: - LEG/NECK PAIN 11/11/2021 09:15 [facility] [place]: Emergency COMPLAINT: - POSS STROKE 11/10/2021 10:26 [facility] [place] TYPE: Emergency DIAGNOSES: - Hand Swelling - Dehydration - Type 2 diabetes mellitus with diabetic neuropathy, unspecified - Other specified soft tissue disorders - Anemia in chronic kidney disease - Essential (primary) hypertension - Chronic kidney disease, stage 3b - covid pos - Presence of cardiac pacemaker - COVID-19 11/09/2021 18:08 [facility] [place]: Emergency COMPLAINT: - WEAKNESS DIAGNOSES: - Type 2 diabetes mellitus with diabetic chronic kidney disease - Weakness - [facility] (current) use of oral hypoglycemic drugs - Other [facility] (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 - Chronic kidney disease, stage 4 (severe) - COVID-19 - Hyperlipidemia, unspecified - meterman (current) use of aspirin - Personal history of nicotine dependence - Allergy status to sulfonamides - Heart failure, unspecified - 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 kidney disease, or unspecified chronic kidney disease - Hypothyroidism, unspecified 09/14/2021 18:08 [facility] [place] TYPE: Emergency COMPLAINT: - HEADACHE DIAGNOSES: - meterman (current) use of oral hypoglycemic drugs - [...] 3 unspecified - Hypothyroidism, unspecified - Other [facility] (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 - Hyperlipidemia, unspecified - meterman (current) use of aspirin 08/14/2021 10:34 [facility] [...] and (suspected) exposure to COVID-19 - 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 - [facility] (current) use of oral hypoglycemic drugs - [...] TYPE: Emergency COMPLAINT: - FALL DIAGNOSES: - meterman (current) use of aspirin - Heart failure, unspecified - 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 kidney disease, or unspecified chronic kidney disease - Dizziness and giddiness - Personal history of nicotine dependence - Other [facility] (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 - Hypothyroidism, unspecified - Contact with and (suspected) exposure to COVID-19 - Allergy status to sulfonamides - Hyperlipidemia, unspecified - [facility] (current) use of oral hypoglycemic drugs - Chronic kidney disease, stage 3 unspecified - Bradycardia, unspecified - Type 2 diabetes mellitus with diabetic chronic kidney disease 03/09/2021 18:40 [facility] [place] TYPE: Emergency COMPLAINT: - FEVER,VOMITING DIAGNOSES: - Chronic kidney disease, stage 3 unspecified - meterman (current) use of aspirin - Type 2 diabetes mellitus with diabetic chronic kidney disease - Other [facility] (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 - 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 kidney disease, or unspecified chronic kidney disease - Personal history of nicotine dependence - Weakness - Acute gastritis without bleeding - Weakness - Vomiting, unspecified - Heart failure, unspecified - Hypothyroidism, unspecified - Hyperlipidemia, unspecified - Allergy status to sulfonamides INPATIENT VISIT TRACKING (12 MO.) 11/11/2021 09:16 [facility] [place] TYPE: Observation COMPLAINT: - TIA, COVID 19 DIAGNOSES: - Allergy status to sulfonamides - Heart failure, unspecified - Personal history of nicotine dependence - Hyperlipidemia, unspecified - Presence of cardiac pacemaker - 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 kidney disease, or unspecified chronic kidney disease - COVID-19 - Chronic kidney disease, stage 4 (severe) - Altered mental status, unspecified - [facility] (current) use of aspirin - Type 2 diabetes mellitus with diabetic chronic kidney disease - Benign prostatic hyperplasia without lower urinary tract symptoms - Hypothyroidism, unspecified - Anemia in chronic kidney disease - Acute kidney failure, unspecified - Other speech disturbances 08/14/2021 13:27 [facility] [place] TYPE: Medical [...] chronic diastolic (congestive) heart failure - Other [facility] (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 - meterman (current) use of aspirin - Hypothyroidism, unspecified [...] with hypoxia - Atherosclerotic heart disease of [place] coronary artery without angina pectoris - Type 2 diabetes mellitus with diabetic neuropathy, unspecified - Acute kidney failure, unspecified 07/10/2021 15:49 [facility] [place] TYPE: Medical Surgical DIAGNOSES: - Acute [...] failure, hypoxia - Atherosclerotic heart disease of [place] coronary artery with other forms of angina pectoris 06/23/2021 22:20 [facility] [place] TYPE: Medical Surgical DIAGNOSES: - Conduction disorder, unspecified - Symptomatic Bradycardia - Chronic kidney disease, stage 3b - Bradycardia, unspecified - Mixed hyperlipidemia - Atherosclerotic heart disease of [place] coronary artery with other forms of angina [...] disturbance - Anemia in chronic kidney disease [id number]
[2022-01-30] MEDS ORDERED: ULTRAM50 MG PO (21:27)
== END 2022-01-30 22:10 | disposition home or self-care (01) ==
LOC: ED 19:32
DX: M19.09 Primary osteoarthritis, other specified site (principal); I13.0 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 kidney disease, or unspecified chronic kidney disease; E11.22 Type 2 diabetes mellitus with diabetic chronic kidney disease; E03.9 Hypothyroidism, unspecified; E78.5 Hyperlipidemia, unspecified; I50.9 Heart failure, unspecified; N18.4 Chronic kidney disease, stage 4 (severe); Z87.891 Personal history of nicotine dependence; Z88.2 Allergy status to sulfonamides; Z79.899 Other long term (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; Z79.84 Long term (current) use of oral hypoglycemic drugs
CPT/HCPCS: 72040; 96372; 99283-25; A9270; J2270

== ENCOUNTER 2022-01-31 08:38 | Emergency (ER) | payer MEDICARE, OTHER ==
[~2022-01-31] VITALS: Ht 172.7 cm; Wt 77.7 kg
[~2022-01-31 08:38] MED LIST changes: +ULTRAM50 MG PO
--- OUTSIDE RECORDS SUMMARY | 2022-01-31 08:46 | XMS ---
PreManage Notification: JANICE FOSTER Security Button Sewer Hand Events No recent Security Events currently on file CRITERIA MET - 6 ED Visits in 6 Months - [facility] - 2 Visits in 30 Days CARE PROVIDERS EVERARDO MARQUEZ Physical Medicine \T\ Rehabilitation Current PHONE: [phone] NAI LARSEN Nurse Practitioner: Family Bronson [place] PHONE: [phone] Darlene Miranda Chef Manager/Cutting Machine Operator Helper 11/09/2021-Current PHONE: [phone] ANABELL READ Nurse Practitioner: Gerontology Current PHONE: [phone] [facility]Current PHONE: Unknown Jillian has no Care Guidelines for this patient. Jarred VISIT COUNT (12 MO.) 1 Noel Garcia M.C. 9 FRED Ge TOTAL 10 NOTE: Visits indicate total known visits. ED/UCC VISIT TRACKING (12 MO.) 01/31/2022 08:39 [facility] [place] [place] [facility] COMPLAINT: - HIGH BLOOD SUGAR 01/30/2022 19:32 [facility] COMPLAINT: - LEG/NECK PAIN/NO INJ 11/11/2021 09:15 [facility] [place] COMPLAINT: - POSS STROKE 11[facility]10/2021 10[facility] DIAGNOSES: - Hand Swelling - Dehydration - Type 2 diabetes mellitus with diabetic neuropathy, unspecified - Other specified soft tissue disorders - Anemia in chronic kidney disease - Essential (primary) hypertension - Chronic kidney disease, stage 3b - covid pos - Presence of cardiac pacemaker - COVID-19 11/09/2021 18:08 [facility] [place] TYPE: Emergency COMPLAINT: - WEAKNESS DIAGNOSES: - Type 2 diabetes mellitus with diabetic chronic kidney disease - Weakness - 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 - Other penitentiary (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 - Chronic kidney disease, stage 4 (severe) - COVID-19 - Hyperlipidemia, unspecified - regional intermodal truck driver (current) use of aspirin - Personal history of nicotine dependence - Allergy status to sulfonamides - Heart failure, unspecified - 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 kidney disease, or unspecified chronic kidney disease - Hypothyroidism, unspecified 09/14/2021 18:08 [facility] [place] TYPE: Emergency COMPLAINT: - HEADACHE DIAGNOSES: - regional intermodal truck driver (current) use of oral [...] 3 unspecified - Hypothyroidism, unspecified - 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 - Hyperlipidemia, unspecified - prison (current) use of aspirin 08/14/2021 10:34 FRED [...] and (suspected) exposure to COVID-19 - 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 - regional intermodal truck driver (current) use of oral [...] TYPE: Emergency COMPLAINT: - FALL DIAGNOSES: - regional intermodal truck driver (current) use of aspirin - Heart failure, unspecified - 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 kidney disease, or unspecified chronic kidney disease - Dizziness and giddiness - Personal history of nicotine dependence - Other penitentiary (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 - Hypothyroidism, unspecified - Contact with and (suspected) exposure to COVID-19 - Allergy status to sulfonamides - Hyperlipidemia, unspecified - 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 - Chronic kidney disease, stage 3 unspecified - Bradycardia, unspecified - Type 2 diabetes mellitus with diabetic chronic kidney disease 03/09/2021 18:40 [facility] [place] TYPE: Emergency COMPLAINT: - FEVER,VOMITING DIAGNOSES: - Chronic kidney disease, stage 3 unspecified - prison (current) use of aspirin - Type 2 diabetes mellitus with diabetic chronic kidney disease - Other penitentiary (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 - Hypertensive heart and [...] (severe) - Altered mental status, unspecified - prison (current) use of aspirin - Type 2 diabetes mellitus with diabetic chronic kidney disease - Benign prostatic hyperplasia without lower urinary tract symptoms - Hypothyroidism, unspecified - Anemia in chronic kidney disease - Acute kidney failure, unspecified - Other speech disturbances 08/14/2021 13:[address] [facility] [place] TYPE: Medical Surgical COMPLAINT: - RESPIRATORY [...] chronic diastolic (congestive) heart failure - 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 - regional intermodal truck driver (current) use of aspirin - Hypothyroidism, unspecified [...] with hypoxia - Atherosclerotic heart disease of [place] coronary artery without angina pectoris - Type 2 diabetes mellitus with diabetic neuropathy, unspecified - Acute kidney failure, unspecified 07/10/2021 15:49 [facility] [place] TYPE: Medical Surgical DIAGNOSES: - Acute [...] failure, hypoxia - Atherosclerotic heart disease of [place] coronary artery with other forms of angina pectoris 06/23[facility]2021 [facility] DIAGNOSES: - Conduction disorder, unspecified - Symptomatic Bradycardia - Chronic kidney disease, stage 3b - Bradycardia, unspecified - Mixed hyperlipidemia - Atherosclerotic heart disease of [place] coronary artery with other forms of angina [...] disturbance - Anemia in chronic kidney disease [id number]
== END 2022-01-31 16:29 | disposition home or self-care (01) ==
LOC: ED 08:38
DX: R33.9 Retention of urine, unspecified (principal); Z20.822 Contact with and (suspected) exposure to COVID-19; I12.9 Hypertensive chronic kidney disease with stage 1 through stage 4 chronic kidney disease, or unspecified chronic kidney disease; N18.4 Chronic kidney disease, stage 4 (severe); E11.22 Type 2 diabetes mellitus with diabetic chronic kidney disease; E03.9 Hypothyroidism, unspecified; E78.5 Hyperlipidemia, unspecified; Z87.891 Personal history of nicotine dependence; Z88.2 Allergy status to sulfonamides; Z79.899 Other long term (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; Z79.82 Long term (current) use of aspirin; Z79.84 Long term (current) use of oral hypoglycemic drugs
CPT/HCPCS: 36415; 51702; 74176; 80053; 81001; 85025; 87502; 99284-25; C9803; U0003

== ENCOUNTER 2022-02-02 20:34 | Emergency (ER) | payer MEDICARE, OTHER ==
[~2022-02-02] VITALS: Ht 172.7 cm; Wt 80.0 kg
--- OUTSIDE RECORDS SUMMARY | 2022-02-02 20:42 | XMS ---
PreManage Notification: JANICE FOSTER Security Brine Room Laborer Events No recent Security Events currently on file CRITERIA MET - 6 ED Visits in 6 Months - [facility] - 2 Visits in 30 Days CARE PROVIDERS EVERARDO MARQUEZ Physical Medicine \T\ Rehabilitation Current PHONE: [phone] NAI LARSEN Nurse Practitioner: Family Bronson [place]UST PHONE: [phone] Darlene Miranda Shell Assembler/Acid Bath Mixer 11/09/2021-Current PHONE: [phone] ANABELL READ Nurse Practitioner: Gerontology Current PHONE: [phone] [facility]Current PHONE: Unknown Jillian has no Care Guidelines for this patient. Jarred VISIT COUNT (12 MO.) 1 Noel Garcia M.C. 10 FRED Ge TOTAL 11 NOTE: Visits indicate total known visits. ED/UCC VISIT TRACKING (12 MO.) 02/02/2022 20:35 [facility] [place]: Emergency COMPLAINT: - CATHETER PROBLEM 01/31/2022 08:39 [facility] [place] TYPE: Emergency COMPLAINT: - HIGH BLOOD SUGAR 01/30/2022 19:32 [facility] [place] TYPE: Emergency COMPLAINT: - LEG/NECK PAIN/NO INJ 11/11/2021 09:15 [facility] [place] TYPE: Emergency COMPLAINT: - POSS STROKE 11/10/2021 10:26 [facility] DIAGNOSES: - Hand Swelling - Dehydration - Type 2 diabetes mellitus with diabetic neuropathy, unspecified - Other specified soft tissue disorders - Anemia in chronic kidney disease - Essential (primary) hypertension - Chronic kidney disease, stage 3b - covid pos - Presence of cardiac pacemaker - COVID-19 11/09/2021 18:08 [facility] [place] TYPE: Emergency COMPLAINT: - WEAKNESS DIAGNOSES: - Type 2 diabetes mellitus with diabetic chronic kidney disease - Weakness - penitentiary (current) use of oral hypoglycemic drugs - 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 - Chronic kidney disease, stage 4 (severe) - COVID-19 - Hyperlipidemia, unspecified - penitentiary (current) use of aspirin - Personal history of nicotine dependence - Allergy status to sulfonamides - Heart failure, unspecified - 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 kidney disease, or unspecified chronic kidney disease - Hypothyroidism, unspecified 09/14/2021 18:08 [facility] [place] TYPE: Emergency COMPLAINT: - HEADACHE DIAGNOSES: - 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 supervisor (current) use of oral hypoglycemic drugs - [...] 3 unspecified - Hypothyroidism, unspecified - 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 - Hyperlipidemia, unspecified - 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 supervisor (current) use of aspirin 08/14/2021 10:34 FR[facility] [...] - Other residential (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 - penitentiary (current) use of oral hypoglycemic drugs - [...] TYPE: Emergency COMPLAINT: - FALL DIAGNOSES: - penitentiary (current) use of aspirin - Heart failure, [...] status to sulfonamides - Hyperlipidemia, unspecified - 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 supervisor (current) 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 of oral hypoglycemic drugs - Chronic kidney disease, stage 3 unspecified - Bradycardia, unspecified - Type 2 diabetes mellitus with diabetic chronic kidney disease 03/09/2021 18:40 [facility] [place] TYPE: Emergency COMPLAINT: - FEVER,VOMITING DIAGNOSES: - Chronic kidney disease, stage 3 unspecified - penitentiary (current) use of aspirin - Type 2 diabetes mellitus with diabetic chronic kidney disease - 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 - Hypertensive heart and [...] (severe) - Altered mental status, unspecified - 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 supervisor (current) 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 of 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 - Type 2 [...] chronic diastolic (congestive) heart failure - 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 - 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 supervisor (current) use of aspirin - Hypothyroidism, unspecified [...] with hypoxia - Atherosclerotic heart disease of [place] coronary artery without angina pectoris - Type 2 diabetes mellitus with diabetic neuropathy, unspecified - Acute kidney failure, unspecified 07/10/2021 15:49 [facility] [place] TYPE: Medical Surgical DIAGNOSES: - [...] failure, hypoxia - Atherosclerotic heart disease of [place] coronary artery with other forms of angina pectoris 06/23/2021 22:[facility] DIAGNOSES: - Conduction disorder, unspecified - Symptomatic Bradycardia - Chronic kidney disease, stage 3b - Bradycardia, unspecified - Mixed hyperlipidemia - Atherosclerotic heart disease of [place] coronary artery with other forms of angina [...] disturbance - Anemia in chronic kidney disease [id number]
== END 2022-02-02 22:37 | disposition home or self-care (01) ==
LOC: ED 20:34
PROC: 4A0D7LZ Measurement of Urinary Volume, Via Natural or Artificial Opening (ICD-10-PCS; principal; 2022-02-02)
DX: T83.091A Other mechanical complication of indwelling urethral catheter, initial encounter (principal); I13.0 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 kidney disease, or unspecified chronic kidney disease; E11.22 Type 2 diabetes mellitus with diabetic chronic kidney disease; N18.4 Chronic kidney disease, stage 4 (severe); I50.9 Heart failure, unspecified; E03.9 Hypothyroidism, unspecified; E78.5 Hyperlipidemia, unspecified; Z87.891 Personal history of nicotine dependence; Z88.2 Allergy status to sulfonamides; Z79.82 Long term (current) use of aspirin; Z79.899 Other long term (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; Y83.1 Surgical operation with implant of artificial internal device as the cause of abnormal reaction of the patient, or of later complication, without mention of misadventure at the time of the procedure
CPT/HCPCS: 51798; 99283-25

== ENCOUNTER 2022-02-03 10:42 | Emergency (ER) | payer MEDICARE, OTHER ==
[~2022-02-03] VITALS: Ht 172.7 cm; Wt 80.3 kg
--- OUTSIDE RECORDS SUMMARY | 2022-02-03 10:50 | XMS ---
PreManage Notification: JANICE FOSTER Security Chain Builder Events No recent Security Events currently on file CRITERIA MET - 6 ED Visits in 6 Months - [facility] - 2 Visits in 30 Days CARE PROVIDERS EVERARDO MARQUEZ Physical Medicine \T\ Rehabilitation Current PHONE: [phone] NAI LARSEN Nurse Practitioner: Family Bronson [place]UST PHONE: [phone] Darlene Miranda Vp Marketing/Automotive Service Advisor 11/09/2021-Current PHONE: [phone] ANABELL READ Nurse Practitioner: Gerontology Current PHONE: [phone] [facility]-Current PHONE: Unknown Jillian has no Care Guidelines for this patient. Jarred VISIT COUNT (12 MO.) 1 Noel Garcia M.C. 11 FRED Ge TOTAL 12 NOTE: Visits indicate total known visits. 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 - Personal history of nicotine dependence - Nausea with vomiting, unspecified - Hypertensive chronic kidney disease with stage 1 through stage 4 chronic kidney disease, or unspecified chronic kidney disease - security operations center analyst (current) use of oral hypoglycemic drugs - Chronic kidney disease, stage 4 (severe) - Allergy status to sulfonamides - Type 2 diabetes mellitus with diabetic chronic kidney disease - Retention of urine, unspecified - security operations center analyst (current) use of aspirin - Hyperlipidemia, unspecified - Hypothyroidism, unspecified - Contact with and (suspected) exposure to COVID-19 01/30/2022 19:32 [facility] [place] TYPE: Emergency COMPLAINT: - LEG/NECK PAIN/NO INJ DIAGNOSES: - Heart failure, unspecified - Primary osteoarthritis, other specified site - Allergy status to sulfonamides - Hypothyroidism, unspecified - Chronic kidney disease, stage 4 (severe) - 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 biodiesel engine specialist (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 - Hyperlipidemia, unspecified - 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 kidney disease, or unspecified chronic kidney disease - security operations center analyst (current) use of oral hypoglycemic drugs - Type 2 diabetes mellitus with diabetic chronic kidney disease - Personal history of nicotine dependence - Cervicalgia 11/11/2021 09:15 [facility] [place] TYPE: Emergency COMPLAINT: - POSS STROKE 11/10/2021 10:26 [facility] DIAGNOSES: - Hand Swelling [...] diabetic chronic kidney disease - Weakness - jail (current) use of oral hypoglycemic drugs - Other biodiesel engine 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 (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 - Chronic kidney disease, stage 4 (severe) - COVID-19 - Hyperlipidemia, unspecified - security operations center analyst (current) use of aspirin - Personal history of nicotine dependence - Allergy status to sulfonamides - Heart failure, unspecified - 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 kidney disease, or unspecified chronic kidney disease - Hypothyroidism, unspecified 09/14/2021 18:08 [facility] [place] TYPE: Emergency COMPLAINT: - HEADACHE DIAGNOSES: - security operations center analyst (current) use of oral hypoglycemic drugs - [...] 3 unspecified - Hypothyroidism, unspecified - Other halfway (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 - Hyperlipidemia, unspecified - security operations center analyst (current) use of aspirin 08/14/2021 10:34 FR[facility] [...] and (suspected) exposure to COVID-19 - Other halfway (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 - security operations center analyst (current) use of oral hypoglycemic drugs - [...] TYPE: Emergency COMPLAINT: - FALL DIAGNOSES: - jail (current) use of aspirin - Heart failure, unspecified - 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 kidney disease, or unspecified chronic kidney disease - Dizziness and giddiness - Personal history of nicotine dependence - Other halfway (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 - Hypothyroidism, unspecified - Contact with and (suspected) exposure to COVID-19 - Allergy status to sulfonamides - Hyperlipidemia, unspecified - jail (current) use of oral hypoglycemic drugs - Chronic kidney disease, stage 3 unspecified - Bradycardia, unspecified - Type 2 diabetes mellitus with diabetic chronic kidney disease 03/09/2021 18:40 [facility] [place] TYPE: Emergency COMPLAINT: - FEVER,VOMITING DIAGNOSES: - Chronic kidney disease, stage 3 unspecified - jail (current) use of aspirin - Type 2 diabetes mellitus with diabetic chronic kidney disease - Other biodiesel engine 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 (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 - Hypertensive heart and [...] (severe) - Altered mental status, unspecified - security operations center analyst (current) use of aspirin - Type 2 [...] chronic diastolic (congestive) heart failure - Other biodiesel engine specialist (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 - security operations center analyst (current) use of aspirin - Hypothyroidism, unspecified [...] with hypoxia - Atherosclerotic heart disease of [place] coronary artery without angina pectoris - Type 2 diabetes mellitus with diabetic neuropathy, unspecified - Acute kidney failure, unspecified 07/10/2021 15:49 [facility] DIAGNOSES: - Acute [...] failure, hypoxia - Atherosclerotic heart disease of [place] coronary artery with other forms of angina pectoris 06/23/2021 22:20 [facility] DIAGNOSES: - Conduction disorder, unspecified - Symptomatic Bradycardia - Chronic kidney disease, stage 3b - Bradycardia, unspecified - Mixed hyperlipidemia - Atherosclerotic heart disease of [place] coronary artery with other forms of angina [...] disturbance - Anemia in chronic kidney disease [id number]
== END 2022-02-03 12:32 | disposition home or self-care (01) ==
LOC: ED 10:42
DX: T83.031A Leakage of indwelling urethral catheter, initial encounter (principal); I13.0 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 kidney disease, or unspecified chronic kidney disease; E11.22 Type 2 diabetes mellitus with diabetic chronic kidney disease; N18.4 Chronic kidney disease, stage 4 (severe); I50.9 Heart failure, unspecified; E03.9 Hypothyroidism, unspecified; E78.5 Hyperlipidemia, unspecified; Z87.891 Personal history of nicotine dependence; Z88.2 Allergy status to sulfonamides; Z79.899 Other long term (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; Z79.82 Long term (current) use of aspirin; Z79.84 Long term (current) use of oral hypoglycemic drugs; Y83.1 Surgical operation with implant of artificial internal device as the cause of abnormal reaction of the patient, or of later complication, without mention of misadventure at the time of the procedure
CPT/HCPCS: 99283

== ENCOUNTER 2022-02-11 08:52 | Emergency (ER) | payer MEDICARE, OTHER ==
[~2022-02-11] VITALS: Ht 172.7 cm; Wt 78.5 kg
--- OUTSIDE RECORDS SUMMARY | 2022-02-11 08:56 | XMS ---
PreManage Notification: JANICE FOSTER Security Archival Studies Professor Events No recent Security Events currently on file CRITERIA MET - 6 ED Visits in 6 Months - [facility] - 2 Visits in 30 Days CARE PROVIDERS EVERARDO MARQUEZ Physical Medicine \T\ Rehabilitation Current PHONE: [phone] NAI LARSEN Nurse Practitioner: Family Bronson FAUST PHONE: [phone] Darlene Miranda Protection Engineer/Digital Controls Technical Officer 11/09/2021-Current PHONE: [phone] ANABELL READ Nurse Practitioner: Gerontology Current PHONE: [phone] [facility] PHONE: Unknown Jillian has no Care Guidelines for this patient. Jarred VISIT COUNT (12 MO.) 1 Noel [facility] TOTAL 13 NOTE: Visits indicate total known visits. 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 as the cause of abnormal reaction of the patient, or of later complication, without mention of misadventure at the time of the procedure - Hyperlipidemia, unspecified - Chronic kidney disease, stage 4 (severe) - termite helper (current) use of oral hypoglycemic drugs - alf (current) use of aspirin - Leakage of indwelling urethral catheter, initial encounter - Personal history of nicotine dependence 02/02/2022 20:35 [facility] [place] TYPE: Emergency COMPLAINT: - CATHETER PROBLEM DIAGNOSES: - Surgical operation with implant of artificial internal device as the cause of abnormal reaction of the patient, or of later complication, without mention of misadventure at the time of the procedure - Hyperlipidemia, unspecified - 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 operator (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 - Chronic kidney disease, stage 4 (severe) - Hypothyroidism, unspecified - Allergy status to sulfonamides - Heart failure, unspecified - 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 kidney disease, or unspecified chronic kidney disease - Type 2 diabetes mellitus with diabetic chronic kidney disease - Personal history of nicotine dependence - Other mechanical complication of indwelling urethral catheter, initial encounter - alf (current) use of aspirin 01/31/2022 08:39 [facility] [place] TYPE: Emergency COMPLAINT: - HIGH BLOOD SUGAR DIAGNOSES: - Other [place] [facility] (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 - Personal history of nicotine dependence - Nausea with vomiting, unspecified - Hypertensive chronic kidney disease with stage 1 through stage 4 chronic kidney disease, or unspecified chronic kidney disease - alf (current) use of oral hypoglycemic drugs - Chronic kidney disease, stage 4 (severe) - Allergy status to sulfonamides - Type 2 diabetes mellitus with diabetic chronic kidney disease - Retention of urine, unspecified - termite helper (current) use of aspirin - Hyperlipidemia, unspecified - Hypothyroidism, unspecified - Contact with and (suspected) exposure to COVID-19 01/30/2022 19:32 [facility] [place] TYPE: Emergency COMPLAINT: - LEG/NECK PAIN/NO INJ DIAGNOSES: - Heart failure, unspecified - Spondylosis without myelopathy or radiculopathy, cervical region - Primary osteoarthritis, other specified site - Allergy status to sulfonamides - Hypothyroidism, unspecified - Chronic kidney disease, stage 4 (severe) - 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 operator (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 - Hyperlipidemia, unspecified - 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 kidney disease, or unspecified chronic kidney disease - alf (current) use of oral hypoglycemic drugs - Type 2 diabetes mellitus with diabetic chronic kidney disease - Personal history of nicotine dependence - Cervicalgia 11/11/2021 09:15 [facility] [place] TYPE: Emergency COMPLAINT: - POSS STROKE 11/10/2021 10:26 [facility] [place] TYPE: Emergency DIAGNOSES: - Hand [...] diabetic chronic kidney disease - Weakness - alf (current) use of oral hypoglycemic drugs - Other 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 operator (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 - Chronic kidney disease, stage 4 (severe) - COVID-19 - Hyperlipidemia, unspecified - alf (current) use of aspirin - Personal history of nicotine dependence - Allergy status to sulfonamides - Heart failure, unspecified - 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 kidney disease, or unspecified chronic kidney disease - Hypothyroidism, unspecified 09/14/2021 18:08 [facility] [place] TYPE: Emergency COMPLAINT: - HEADACHE DIAGNOSES: - termite helper (current) use of oral hypoglycemic drugs - [...] 3 unspecified - Hypothyroidism, unspecified - Other 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 operator (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 - Hyperlipidemia, unspecified - termite helper (current) use of aspirin 08/14/2021 10:34 [facility] [...] and (suspected) exposure to COVID-19 - [facility] [place] [facility] (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 - alf (current) use of oral hypoglycemic drugs - [...] TYPE: Emergency COMPLAINT: - FALL DIAGNOSES: - alf (current) use of aspirin - Heart failure, unspecified - 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 kidney disease, or unspecified chronic kidney disease - Dizziness and giddiness - Personal history of nicotine dependence - Other 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 operator (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 - Hypothyroidism, unspecified - Contact with and (suspected) exposure to COVID-19 - Allergy status to sulfonamides - Hyperlipidemia, unspecified - termite helper (current) use of oral hypoglycemic drugs - Chronic kidney disease, stage 3 unspecified - Bradycardia, unspecified - Type 2 diabetes mellitus with diabetic chronic kidney disease 03/09/2021 18:40 [facility] TYPE: Emergency COMPLAINT: - FEVER,VOMITING DIAGNOSES: - Chronic kidney disease, stage 3 unspecified - alf (current) use of aspirin - Type 2 diabetes mellitus with diabetic chronic kidney disease - [facility] [place] [facility] (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 - Hypertensive heart and [...] (severe) - Altered mental status, unspecified - alf (current) use of aspirin - Type 2 [...] chronic diastolic (congestive) heart failure - [facility] [place] [facility] (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 - termite helper (current) use of aspirin - Hypothyroidism, unspecified [...] with hypoxia - Atherosclerotic heart disease of [place] coronary artery without angina pectoris - Type 2 diabetes mellitus with diabetic neuropathy, unspecified - Acute kidney failure, unspecified 07/10/2021 15:49 [facility] TYPE: Medical Surgical DIAGNOSES: - Acute [...] failure, hypoxia - Atherosclerotic heart disease of [place] coronary artery with other forms of angina pectoris 06/23/2021 22:20 [facility] [place] TYPE: Medical Surgical DIAGNOSES: - Conduction disorder, unspecified - Symptomatic Bradycardia - Chronic kidney disease, stage 3b - Bradycardia, unspecified - Mixed hyperlipidemia - Atherosclerotic heart disease of [place] coronary artery with other forms of angina [...] disturbance - Anemia in chronic kidney disease [id number]
[2022-02-11] MEDS ORDERED: PREDNISONE20 MG PO (13:42)
== END 2022-02-11 14:11 | disposition home or self-care (01) ==
LOC: ED 08:52
DX: M10.9 Gout, unspecified (principal); I13.0 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 kidney disease, or unspecified chronic kidney disease; E11.22 Type 2 diabetes mellitus with diabetic chronic kidney disease; E03.9 Hypothyroidism, unspecified; E78.5 Hyperlipidemia, unspecified; I50.9 Heart failure, unspecified; N18.4 Chronic kidney disease, stage 4 (severe); Z87.891 Personal history of nicotine dependence; Z88.2 Allergy status to sulfonamides; Z79.899 Other long term (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; Z79.82 Long term (current) use of aspirin; Z79.891 Long term (current) use of opiate analgesic; Z79.84 Long term (current) use of oral hypoglycemic drugs
CPT/HCPCS: 73130; 99283-25

== ENCOUNTER 2022-02-12 19:51 | Emergency (ER) | payer MEDICARE, OTHER ==
[~2022-02-12] VITALS: Ht 172.7 cm; Wt 78.5 kg
--- OUTSIDE RECORDS SUMMARY | 2022-02-12 19:58 | XMS ---
PreManage Notification: JNAICE FOSTER Security Kiln Furniture Saw Tender Events No recent Security Events currently on file CRITERIA MET - 6 ED Visits in 6 Months - [facility] - 2 Visits in 30 Days CARE PROVIDERS EVERARDO MARQUEZ Physical Medicine \T\ Rehabilitation Current PHONE: [phone] NAI LARSEN Nurse Practitioner: Family Bronson FAUST PHONE: [phone] Darlene Miranda Credit Risk Officer/Electroplating Laborer 11/09/2021-Current PHONE: [phone] ANABELL READ Nurse Practitioner: Gerontology Current PHONE: [phone] DEBBY, [facility]Current PHONE: Unknown Jillian has no Care Guidelines for this patient. Jarred VISIT COUNT (12 MO.) 1 Noel Garcia M.C. 13 [facility] TOTAL 14 NOTE: Visits indicate total known visits. ED/UCC VISIT TRACKING (12 MO.) 02/12/2022 19:52 [facility] TYPE: Emergency COMPLAINT: - BLOOD PRESSURE PROBLEM 02/11/2022 08:53 [facility] [place] TYPE: Emergency [...] with diabetic chronic kidney disease - Other power shovel operator helper (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 - Hypothyroidism, unspecified - Allergy status to sulfonamides - Surgical operation with implant of artificial internal device as the cause of abnormal reaction of the patient, or of later complication, without mention of misadventure at the time of the procedure - Hyperlipidemia, unspecified - Chronic kidney disease, stage 4 (severe) - FDC (current) use of oral hypoglycemic drugs - FDC (current) use of aspirin - Leakage of [...] the procedure - Hyperlipidemia, unspecified - Other snf (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 - Chronic kidney disease, [...] of indwelling urethral catheter, initial encounter - FDC (current) use of aspirin 01/31/2022 08:39 [facility] TYPE: Emergency COMPLAINT: - HIGH BLOOD SUGAR DIAGNOSES: - Other power shovel operator helper (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 - Personal history of nicotine dependence - Nausea with vomiting, unspecified - Hypertensive chronic kidney disease with stage 1 through stage 4 chronic kidney disease, or unspecified chronic kidney disease - FDC (current) use of oral hypoglycemic drugs - Chronic kidney disease, stage 4 (severe) - Allergy status to sulfonamides - Type 2 diabetes mellitus with diabetic chronic kidney disease - Retention of urine, unspecified - FDC (current) use of aspirin - Hyperlipidemia, unspecified [...] kidney disease, stage 4 (severe) - Other power shovel operator helper (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 - Hyperlipidemia, unspecified - 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 kidney disease, or unspecified chronic kidney disease - FDC (current) use of oral hypoglycemic drugs - Type 2 diabetes mellitus with diabetic chronic kidney disease - Personal history of nicotine dependence - Cervicalgia 11/11/2021 09:15 [facility] [place] TYPE: Emergency COMPLAINT: - POSS STROKE [facility] DIAGNOSES: - Hand [...] diabetic chronic kidney disease - Weakness - FDC (current) use of oral hypoglycemic drugs - Other power shovel operator helper (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 - Chronic kidney disease, stage 4 (severe) - COVID-19 - Hyperlipidemia, unspecified - research scholar (current) use of aspirin - Personal history of nicotine dependence - Allergy status to sulfonamides - Heart failure, unspecified - 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 kidney disease, or unspecified chronic kidney disease - Hypothyroidism, unspecified 09/14/2021 18:08 [facility] [place] TYPE: Emergency COMPLAINT: - HEADACHE DIAGNOSES: - FDC (current) use of oral hypoglycemic drugs - [...] 3 unspecified - Hypothyroidism, unspecified - Other snf (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 - Hyperlipidemia, unspecified - research scholar (current) use of aspirin 08/14/2021 10:34 [facility] [...] and (suspected) exposure to COVID-19 - Other power shovel operator helper (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 - research scholar (current) use of oral hypoglycemic drugs - [...] TYPE: Emergency COMPLAINT: - FALL DIAGNOSES: - FDC (current) use of aspirin - Heart failure, unspecified - 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 kidney disease, or unspecified chronic kidney disease - Dizziness and giddiness - Personal history of nicotine dependence - Other power shovel operator helper (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 - Hypothyroidism, unspecified - Contact with and (suspected) exposure to COVID-19 - Allergy status to sulfonamides - Hyperlipidemia, unspecified - FDC (current) use of oral hypoglycemic drugs - Chronic kidney disease, stage 3 unspecified - Bradycardia, unspecified - Type 2 diabetes mellitus with diabetic chronic kidney disease 03/09/2021 18:40 [facility] [place] TYPE: Emergency COMPLAINT: - FEVER,VOMITING DIAGNOSES: - Chronic kidney disease, stage 3 unspecified - FDC (current) use of aspirin - Type 2 diabetes mellitus with diabetic chronic kidney disease - Other snf (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 - Hypertensive heart and [...] (severe) - Altered mental status, unspecified - FDC (current) use of aspirin - Type 2 [...] chronic diastolic (congestive) heart failure - Other power shovel operator helper (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 - FDC (current) use of aspirin - Hypothyroidism, unspecified [...] with hypoxia - Atherosclerotic heart disease of [place] coronary artery without angina pectoris - Type 2 diabetes mellitus with diabetic neuropathy, unspecified - Acute kidney failure, unspecified 07/10/2021 15:49 [facility] [place] TYPE: Medical Surgical DIAGNOSES: - [...] failure, hypoxia - Atherosclerotic heart disease of [place] coronary artery with other forms of angina pectoris 06/23/2021 22:20 [facility] [place] TYPE: Medical Surgical DIAGNOSES: - Conduction disorder, unspecified - Symptomatic Bradycardia - Chronic kidney disease, stage 3b - Bradycardia, unspecified - Mixed hyperlipidemia - Atherosclerotic heart disease of [place] coronary artery with other forms of angina [...] disturbance - Anemia in chronic kidney disease [id number]
== END 2022-02-13 04:45 | disposition home or self-care (01) ==
LOC: ED 19:51
DX: D64.9 Anemia, unspecified (principal); E11.65 Type 2 diabetes mellitus with hyperglycemia; E03.9 Hypothyroidism, unspecified; E78.5 Hyperlipidemia, unspecified; I13.0 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 kidney disease, or unspecified chronic kidney disease; N18.4 Chronic kidney disease, stage 4 (severe); I50.9 Heart failure, unspecified; E11.22 Type 2 diabetes mellitus with diabetic chronic kidney disease; M10.9 Gout, unspecified; Z87.891 Personal history of nicotine dependence; Z88.2 Allergy status to sulfonamides; Z79.899 Other long term (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; Z79.52 Long term (current) use of systemic steroids; Z79.82 Long term (current) use of aspirin; Z79.84 Long term (current) use of oral hypoglycemic drugs
CPT/HCPCS: 36415; 36430; 80053; 81001; 85025; 86850; 86900; 86901; 86922; 96374; 96376; 99285-25; J1815; J7040

== ENCOUNTER 2022-02-28 09:03 | Emergency (ER) | payer MEDICARE, OTHER ==
[~2022-02-28] VITALS: Ht 172.7 cm; Wt 83.3 kg
[~2022-02-28 09:03] MED LIST changes: +LIDOCAINE HCL5 ML TOP; +METFORMIN HCL500 M3 PO
--- OUTSIDE RECORDS SUMMARY | 2022-02-28 09:10 | XMS ---
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 Jarred VISIT COUNT (12 MO.) 1 Noel Garcia M.C[facility] 15 [facility] TOTAL 16 NOTE: Visits indicate total known visits. ED/UCC VISIT TRACKING (12 MO.) 02/28/2022 09:04 [facility] [place] TYPE: Emergency COMPLAINT: - ALTERED LOC 02/23/2022 19:01 [facility] [place] TYPE: Emergency COMPLAINT: - STROKE SYMPTOMS 02/12/2022 19:52 [facility] [place] TYPE: Emergency COMPLAINT: - BLOOD PRESSURE PROBLEM DIAGNOSES: - 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 kidney disease, or unspecified chronic kidney disease - Hyperlipidemia, unspecified - Heart failure, unspecified - Anemia, unspecified - custodial (current) use of oral hypoglycemic drugs - custodial (current) use of systemic steroids - custodial (current) use of aspirin - Chronic kidney disease, stage 4 (severe) - Allergy status to sulfonamides - Hypothyroidism, unspecified - Type 2 diabetes mellitus with diabetic chronic kidney disease - Personal history of nicotine dependence - Type 2 diabetes mellitus with hyperglycemia - Other computer terminal operator (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 - Gout, unspecified 02/11/2022 08:53 [facility] [place] TYPE: Emergency COMPLAINT: - R HAND SWELLING DIAGNOSES: - custodial (current) use of oral hypoglycemic drugs - 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 kidney disease, or unspecified chronic kidney disease - Gout, unspecified - Chronic kidney disease, stage 4 (severe) - Other computer terminal operator (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 - Allergy status to sulfonamides - Other specified soft tissue disorders - Type 2 diabetes mellitus with diabetic chronic kidney disease - Hyperlipidemia, unspecified - Hypothyroidism, unspecified - terminal computer operator (current) use of opiate analgesic - Heart failure, unspecified - terminal computer operator (current) use of aspirin - Personal history of nicotine dependence 02/03/2022 10:43 [facility] [place] TYPE: Emergency COMPLAINT: - CATHETER LEAKING DIAGNOSES: - Allergy status to sulfonamides - Personal history of nicotine dependence - Other computer terminal operator (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 - terminal computer operator (current) use of aspirin - Heart failure, unspecified - Chronic kidney disease, stage 4 (severe) - Surgical operation with implant of artificial internal device as the cause of abnormal reaction of the patient, or of later complication, without mention of misadventure at the time of the procedure - Hypothyroidism, unspecified - Leakage of indwelling urethral catheter, initial encounter - Type 2 diabetes mellitus with diabetic chronic kidney disease - custodial (current) use of oral hypoglycemic drugs - 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 kidney disease, or unspecified chronic kidney disease - Hyperlipidemia, unspecified 02/02/2022 20:35 [facility] TYPE: Emergency COMPLAINT: - CATHETER PROBLEM DIAGNOSES: - Allergy status to sulfonamides - Chronic kidney disease, stage 4 (severe) - Other mechanical complication of indwelling urethral catheter, initial encounter - Hyperlipidemia, unspecified - Type 2 diabetes mellitus with diabetic chronic kidney disease - Heart failure, unspecified - Hypothyroidism, unspecified - terminal computer operator (current) use of aspirin - Other half-way (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 - Personal history of nicotine dependence - Surgical operation with implant of artificial internal device as the cause of abnormal reaction of the patient, or of later complication, without mention of misadventure at the time of the procedure - 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 kidney disease, or unspecified chronic kidney disease 01/31/2022 08:39 [facility] TYPE: Emergency COMPLAINT: - HIGH BLOOD SUGAR DIAGNOSES: - Chronic kidney disease, stage 4 (severe) - Contact with and (suspected) exposure to COVID-19 - Hypertensive chronic kidney disease with stage 1 through stage 4 chronic kidney disease, or unspecified chronic kidney disease - Hyperlipidemia, unspecified - Personal history of nicotine dependence - Retention of urine, unspecified - Allergy status to sulfonamides - terminal computer operator (current) use of oral hypoglycemic drugs - Hypothyroidism, unspecified - Nausea with vomiting, unspecified - custodial (current) use of aspirin - Other computer terminal operator (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 - Type 2 diabetes mellitus with diabetic chronic kidney disease 01/30/2022 19:32 [facility] TYPE: Emergency COMPLAINT: - LEG/NECK PAIN/NO INJ DIAGNOSES: - Chronic kidney disease, stage 4 (severe) - Cervicalgia - Allergy status to sulfonamides - Type 2 diabetes mellitus with diabetic chronic kidney disease - Spondylosis without myelopathy or radiculopathy, cervical region - 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 kidney disease, or unspecified chronic kidney disease - Other computer terminal operator (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 - Hypothyroidism, unspecified - Personal history of nicotine dependence - Primary osteoarthritis, other specified site - terminal computer operator (current) use of oral hypoglycemic drugs - Heart failure, unspecified - Hyperlipidemia, unspecified 11/11/2021 09:15 [facility] [place] TYPE: Emergency COMPLAINT: - POSS [facility]KE [facility] DIAGNOSES: - Essential (primary) hypertension - Other specified soft tissue disorders - Dehydration - Presence of cardiac pacemaker - Chronic kidney disease, stage 3b - Anemia in chronic kidney disease - Type 2 diabetes mellitus with diabetic neuropathy, unspecified - COVID-19 - Hand Swelling - covid pos 11/09/2021 18:08 [facility] TYPE: Emergency COMPLAINT: - WEAKNESS DIAGNOSES: - COVID-19 - Hypothyroidism, unspecified - Other computer terminal operator (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 - Heart failure, unspecified - Weakness - Personal history of nicotine dependence - Hyperlipidemia, unspecified - Chronic kidney disease, stage 4 (severe) - 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 kidney disease, or unspecified chronic kidney disease - terminal computer operator (current) use of oral hypoglycemic drugs - Allergy status to sulfonamides - Type 2 diabetes mellitus with diabetic chronic kidney disease - terminal computer operator (current) use of aspirin 09/14/2021 18:08 [facility] TYPE: Emergency COMPLAINT: - HEADACHE DIAGNOSES: - 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 kidney disease, or unspecified chronic kidney disease - Hyperlipidemia, unspecified - Type 2 diabetes mellitus with diabetic chronic kidney disease - Hypothyroidism, unspecified - Personal history of nicotine dependence - Acute upper respiratory infection, unspecified - Allergy status to sulfonamides - custodial (current) use of aspirin - Headache, unspecified - Other computer terminal operator (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 - Heart failure, unspecified - Chronic kidney disease, stage 3 unspecified - terminal computer operator (current) use of oral hypoglycemic drugs - Contact with and (suspected) exposure to COVID-19 08/14/2021 10:34 [facility] [place] TYPE: Emergency COMPLAINT: - DIFFICULTY BREATHING WHEN STANDING 07/10/2021 09:52 [facility] TYPE: Emergency COMPLAINT: - HEART ISSUE, AMS, WEAK DIAGNOSES: - Personal history of nicotine dependence - Shortness of breath - Other computer terminal operator (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 - Hyperlipidemia, unspecified - Hyperkalemia - Chronic kidney disease, stage 3 unspecified - Heart failure, unspecified - Type 2 diabetes mellitus with diabetic chronic kidney disease - terminal computer operator (current) use of oral hypoglycemic drugs - Allergy status to sulfonamides - Contact with and (suspected) exposure to COVID-19 - Hypothyroidism, unspecified - 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 kidney disease, or unspecified chronic kidney disease - Hypoxemia - Acute kidney failure, unspecified 06/23/2021 19:44 [facility] TYPE: Emergency COMPLAINT: - FALL DIAGNOSES: - Other computer terminal operator (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 - Bradycardia, unspecified - Dizziness and giddiness - custodial (current) use of oral hypoglycemic drugs - Heart failure, unspecified - Allergy status to sulfonamides - Hypothyroidism, unspecified - Type 2 diabetes mellitus with diabetic chronic kidney disease - Personal history of nicotine dependence - Chronic kidney disease, stage 3 unspecified - 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 kidney disease, or unspecified chronic kidney disease - Hyperlipidemia, unspecified - terminal computer operator (current) use of aspirin - Contact with and (suspected) exposure to COVID-19 03/09/2021 18:40 [facility] TYPE: Emergency COMPLAINT: - FEVER,VOMITING DIAGNOSES: - Personal history of nicotine dependence - Hyperlipidemia, unspecified - Other half-way (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 - Heart failure, unspecified - terminal computer operator (current) use of aspirin - Weakness - Weakness - Allergy status to sulfonamides - 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 kidney disease, or unspecified chronic kidney disease - Hypothyroidism, unspecified - Type 2 diabetes mellitus with diabetic chronic kidney disease - Vomiting, unspecified - Chronic kidney disease, stage 3 unspecified - Acute gastritis without bleeding INPATIENT VISIT TRACKING (12 MO.) 02/23/2022 19:02 [facility] TYPE: Observation COMPLAINT: - TIA DIAGNOSES: - Personal history of nicotine dependence - Chronic kidney disease, stage 4 (severe) - Allergy status to sulfonamides - Primary osteoarthritis, right wrist - Contact with and (suspected) exposure to COVID-19 - Type 2 diabetes mellitus with diabetic chronic kidney disease - Slurred speech - Presence of cardiac pacemaker - Personal history of transient ischemic attack (TIA), and cerebral infarction without residual deficits - 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 kidney disease, or unspecified chronic kidney disease - Facial weakness - Hyperlipidemia, unspecified - Heart failure, unspecified 11/11/2021 09:16 [facility] TYPE: Observation COMPLAINT: - TIA, COVID 19 DIAGNOSES: - 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 kidney disease, or unspecified chronic kidney disease - Hypothyroidism, unspecified - Hyperlipidemia, unspecified - Type 2 diabetes mellitus with diabetic chronic kidney disease - Heart failure, unspecified - Altered mental status, unspecified - Other speech disturbances - COVID-19 - Anemia in chronic kidney disease - Presence of cardiac pacemaker - Benign prostatic hyperplasia without lower urinary tract symptoms - Personal history of nicotine dependence - terminal computer operator (current) use of aspirin - Allergy status to sulfonamides - Chronic kidney disease, stage 4 (severe) - Acute kidney failure, unspecified 08/14/2021 13:27 [facility] TYPE: Medical Surgical COMPLAINT: - RESPIRATORY FAILURE DIAGNOSES: - Personal history of nicotine dependence - Unspecified right bundle-branch block - Hyperlipidemia, unspecified - Atherosclerotic heart disease of [place] coronary artery without angina pectoris - Type 2 diabetes mellitus with diabetic chronic kidney disease - Contact with and (suspected) exposure to COVID-19 - Acute kidney failure, unspecified - Other computer terminal operator (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 - Allergy status to sulfonamides - Hypothyroidism, unspecified - Anemia in chronic kidney disease - Chronic kidney disease, stage 3 unspecified - Type 2 diabetes mellitus with hyperglycemia - Acute respiratory failure with hypoxia - 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 kidney disease, or unspecified chronic kidney disease - Cardiomyopathy, unspecified - Type 2 diabetes mellitus with diabetic neuropathy, unspecified - Acute on chronic diastolic (congestive) heart failure - Presence of cardiac pacemaker - Gastro-esophageal reflux disease without esophagitis - terminal computer operator (current) use of aspirin - Benign prostatic hyperplasia without lower urinary tract symptoms - Acute respiratory failure with hypercapnia - Sick sinus syndrome 07/10/2021 15:49 [facility] TYPE: Medical Surgical DIAGNOSES: - Other retention of urine - Type 2 diabetes mellitus with diabetic neuropathy, unspecified - Chronic kidney disease, stage 3b - Congestive heart failure, hypoxia - Encounter for adjustment and management of other part of cardiac pacemaker - Hypertensive chronic kidney disease with stage 1 through stage 4 chronic kidney disease, or unspecified chronic kidney disease - Acute systolic (congestive) heart failure - Atherosclerotic heart disease of [place] coronary artery with other forms of angina pectoris 06/23/2021 22:20 [facility] TYPE: Medical Surgical DIAGNOSES: - Atherosclerotic heart disease of [place] coronary artery with other forms of angina pectoris - Anemia in chronic kidney disease - Bradycardia, unspecified - Type 2 diabetes mellitus with diabetic neuropathy, unspecified - Symptomatic Bradycardia - Gastro-esophageal reflux disease without esophagitis - Acute respiratory failure with hypoxia - Mixed hyperlipidemia - Unspecified dementia with behavioral disturbance - Chronic kidney disease, stage 3b - Essential (primary) hypertension - Conduction disorder, unspecified - Hypertensive chronic kidney disease with stage 1 through stage 4 chronic kidney disease, or unspecified chronic kidney disease [email or web address]
--- NOTE | 2022-03-01 16:21 | EKG ---
[facility] [address] [place] [address] Signed Ventricular-paced rhythm Abnormal ECG When compared with ECG of 23-FEB-2022 19:21, Vent. rate has increased BY 10 BPM Confirmed by ARON SCHULTZ MD ([id number]) on 03/01/2022 4:21:35 PM Electronically Signed By: ARON SCHULTZ MD 03/01/22 1621 PATIENT NAME: JANICE FOSTER HOLAARIEL Electrocardiogram DATE OF : 40 PHYSICIAN: ARON SCHULTZ MD REPORT #: [id number] REPORT IS CONFIDENTIAL AND NOT TO BE RELEASED WITHOUT AUTHORIZATION
== END 2022-02-28 12:58 | disposition home or self-care (01) ==
LOC: ED 09:03
DX: T83.028A Displacement of other urinary catheter, initial encounter (principal); I13.0 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 kidney disease, or unspecified chronic kidney disease; E11.22 Type 2 diabetes mellitus with diabetic chronic kidney disease; N18.4 Chronic kidney disease, stage 4 (severe); I50.9 Heart failure, unspecified; E11.65 Type 2 diabetes mellitus with hyperglycemia; E03.9 Hypothyroidism, unspecified; E78.5 Hyperlipidemia, unspecified; M10.9 Gout, unspecified; Z87.891 Personal history of nicotine dependence; Z88.2 Allergy status to sulfonamides; Z79.82 Long term (current) use of aspirin; Z79.899 Other long term (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; Z79.84 Long term (current) use of oral hypoglycemic drugs
CPT/HCPCS: 36415; 51702; 51798; 80053; 81001; 84484; 85025; 93005; 93010; 99285-25; J1815

== ENCOUNTER 2022-04-17 17:40 | Emergency (ER) | payer MEDICARE, OTHER ==
[~2022-04-17] VITALS: Ht 172.7 cm; Wt 83.3 kg
--- OUTSIDE RECORDS SUMMARY | 2022-04-17 17:46 | XMS ---
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 Jarred VISIT COUNT (12 MO.) 1 Noel Garcia M.C. 15 [facility] TOTAL 16 NOTE: Visits indicate total known visits. ED/UCC VISIT TRACKING (12 MO.) 04/17/2022 17:40 [facility] [place] TYPE: Emergency COMPLAINT: - CATHETER PROBLEM 02/28/2022 09:04 [facility] [place] TYPE: Emergency COMPLAINT: - ALTERED LOC DIAGNOSES: - Type 2 diabetes mellitus with diabetic chronic kidney disease - Personal history of nicotine dependence - Other residential (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 - Hyperlipidemia, unspecified - Chronic kidney disease, stage 4 (severe) - Allergy status to sulfonamides - [facility] (current) use of oral hypoglycemic drugs - Heart failure, unspecified - Hypothyroidism, unspecified - Altered mental status, unspecified - Type 2 diabetes mellitus with hyperglycemia - 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 kidney disease, or unspecified chronic kidney disease - Displacement of other urinary catheter, initial encounter - Gout, unspecified - [facility] (current) use of aspirin 02/23/2022 19:01 [facility] [place] TYPE: Emergency COMPLAINT: - STROKE SYMPTOMS 02/12/2022 19:52 [facility] [place] TYPE: Emergency COMPLAINT: - BLOOD PRESSURE PROBLEM DIAGNOSES: - Anemia, unspecified - [facility] (current) use of oral hypoglycemic drugs - [facility] (current) use of systemic steroids - [facility] (current) use of aspirin - Chronic kidney disease, stage 4 (severe) - Allergy status to sulfonamides - Hypothyroidism, unspecified - Type 2 diabetes mellitus with diabetic chronic kidney disease - Personal history of nicotine dependence - Type 2 diabetes mellitus with hyperglycemia - Other residential (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 - Gout, unspecified - 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 kidney disease, or unspecified chronic kidney disease - Hyperlipidemia, unspecified - Heart failure, unspecified 02/11/2022 08:53 [facility] [place] TYPE: Emergency COMPLAINT: - R HAND SWELLING DIAGNOSES: - Chronic kidney disease, stage 4 (severe) - Other buttermaker continuous churn (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 - Allergy status to sulfonamides - Other specified soft tissue disorders - Type 2 diabetes mellitus with diabetic chronic kidney disease - Hyperlipidemia, unspecified - Hypothyroidism, unspecified - [facility] (current) use of opiate analgesic - Heart failure, unspecified - [facility] (current) use of aspirin - Personal history of nicotine dependence - [facility] (current) use of oral hypoglycemic drugs - 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 kidney disease, or unspecified chronic kidney disease - Gout, unspecified 02/03/2022 10:43 [facility] [place] TYPE: Emergency COMPLAINT: - CATHETER LEAKING DIAGNOSES: - [facility] (current) use of aspirin - Heart failure, [...] chronic kidney disease - Hyperlipidemia, unspecified - Allergy status to sulfonamides - Personal history of nicotine dependence - Other residential (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 02/02/2022 20:35 [facility] [place] TYPE: Emergency COMPLAINT: - CATHETER PROBLEM DIAGNOSES: - Other mechanical complication of indwelling urethral catheter, initial encounter - Hyperlipidemia, unspecified - Type 2 diabetes mellitus with diabetic chronic kidney disease - Heart failure, unspecified - Hypothyroidism, unspecified - [facility] (current) use of aspirin - Other residential (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 - Personal history of [...] disease - Allergy status to sulfonamides - Chronic kidney disease, stage 4 (severe) 01/31/2022 08:39 [facility] [place] TYPE: Emergency COMPLAINT: - HIGH BLOOD SUGAR DIAGNOSES: - Hyperlipidemia, unspecified - Personal history of nicotine dependence - Retention of urine, unspecified - Allergy status to sulfonamides - [facility] (current) use of oral hypoglycemic drugs - Hypothyroidism, unspecified - Nausea with vomiting, unspecified - [facility] (current) use of aspirin - Other residential (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 - Type 2 diabetes mellitus with diabetic chronic kidney disease - Chronic kidney disease, stage 4 (severe) - Contact with and (suspected) exposure to COVID-19 - Hypertensive chronic kidney disease with stage 1 through stage 4 chronic kidney disease, or unspecified chronic kidney disease 01/30/2022 19:32 [facility] [place] TYPE: Emergency COMPLAINT: - LEG/NECK PAIN/NO INJ DIAGNOSES: - Type 2 diabetes mellitus with diabetic chronic kidney disease - Spondylosis without myelopathy or radiculopathy, cervical region - 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 kidney disease, or unspecified chronic kidney disease - Other residential (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 - Hypothyroidism, unspecified - Personal history of nicotine dependence - Primary osteoarthritis, other specified site - [facility] (current) use of oral hypoglycemic drugs - Heart failure, unspecified - Hyperlipidemia, unspecified - Chronic kidney disease, stage 4 (severe) - Cervicalgia - Allergy status to sulfonamides 11/11/2021 09:15 [facility] [place] TYPE: Emergency COMPLAINT: - POSS STROKE [facility] DIAGNOSES: - Dehydration - Presence of cardiac pacemaker - Chronic kidney disease, stage 3b - Anemia in chronic kidney disease - Type 2 diabetes mellitus with diabetic neuropathy, unspecified - COVID-19 - Hand Swelling - covid pos - Essential (primary) hypertension - Other specified soft tissue disorders 11/09/2021 18:08 [facility] [place] TYPE: Emergency COMPLAINT: - WEAKNESS DIAGNOSES: - Heart failure, unspecified - Weakness - [...] mellitus with diabetic chronic kidney disease - [facility] (current) use of aspirin - COVID-19 - Hypothyroidism, unspecified - Other residential (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 09/14/2021 18:08 [facility] [place] TYPE: Emergency COMPLAINT: - HEADACHE DIAGNOSES: - Hypothyroidism, unspecified - Personal history of nicotine dependence - Acute upper respiratory infection, unspecified - Allergy status to sulfonamides - [facility] (current) use of aspirin - Headache, unspecified - Other buttermaker continuous churn (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 - Heart failure, unspecified - Chronic kidney disease, stage 3 unspecified - [facility] (current) use of oral hypoglycemic drugs - Contact with and (suspected) exposure to COVID-19 - 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 kidney disease, or unspecified chronic kidney disease - Hyperlipidemia, unspecified - Type 2 diabetes mellitus with diabetic chronic kidney disease 08/14/2021 10:34 [facility] [place] TYPE: Emergency COMPLAINT: - DIFFICULTY BREATHING WHEN STANDING 07/10/2021 09:52 [facility] [place] TYPE: Emergency COMPLAINT: - HEART ISSUE, AMS, WEAK DIAGNOSES: - Hyperlipidemia, unspecified - Hyperkalemia - Chronic [...] - Hypoxemia - Acute kidney failure, unspecified - Personal history of nicotine dependence - Shortness of breath - Other buttermaker continuous churn (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 06/23/2021 19:44 [facility] [place] TYPE: Emergency COMPLAINT: - FALL DIAGNOSES: - [facility] (current) use [...] chronic kidney disease - Hyperlipidemia, unspecified - [facility] (current) use of aspirin - Contact with and (suspected) exposure to COVID-19 - Other residential (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 - Bradycardia, unspecified - Dizziness and giddiness INPATIENT VISIT TRACKING (12 MO.) 02/23/2022 19:02 [facility] [place] TYPE: Observation COMPLAINT: - TIA DIAGNOSES: - Primary osteoarthritis, right wrist - Contact [...] Hyperlipidemia, unspecified - Heart failure, unspecified - Personal history of nicotine dependence - Chronic kidney disease, stage 4 (severe) - Allergy status to sulfonamides 11/11/2021 09:16 [facility] [place] TYPE: Observation COMPLAINT: - TIA, COVID 19 DIAGNOSES: - Type 2 diabetes mellitus with diabetic chronic kidney disease - Heart failure, unspecified - Altered mental status, unspecified - Other speech disturbances - COVID-19 - Anemia in chronic kidney disease - Presence of cardiac pacemaker - Benign prostatic hyperplasia without lower urinary tract symptoms - Personal history of nicotine dependence - [facility] (current) use of aspirin - Allergy status to sulfonamides - Chronic kidney disease, stage 4 (severe) - Acute kidney failure, unspecified - 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 kidney disease, or unspecified chronic kidney disease - Hypothyroidism, unspecified - Hyperlipidemia, unspecified 08/14/2021 13:27 [facility] [place] TYPE: Medical Surgical COMPLAINT: - RESPIRATORY FAILURE DIAGNOSES: - Contact with and (suspected) exposure to COVID-19 - Acute kidney failure, unspecified - Other buttermaker continuous churn (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 - Allergy status to [...] - Gastro-esophageal reflux disease without esophagitis - [facility] (current) use of aspirin - Benign prostatic hyperplasia without lower urinary tract symptoms - Acute respiratory failure with hypercapnia - Sick sinus syndrome - Personal history of nicotine dependence - Unspecified right bundle-branch block - Hyperlipidemia, unspecified - Atherosclerotic heart disease of [place] coronary artery without angina pectoris - Type 2 diabetes mellitus with diabetic chronic kidney disease 07/10/2021 15:49 [facility] TYPE: Medical Surgical DIAGNOSES: - Chronic kidney disease, stage 3b - Congestive heart failure, hypoxia - Encounter for adjustment and management of other part of cardiac pacemaker - Hypertensive chronic kidney disease with stage 1 through stage 4 chronic kidney disease, or unspecified chronic kidney disease - Acute systolic (congestive) heart failure - Atherosclerotic heart disease of [place] coronary artery with other forms of angina pectoris - Other retention of urine - Type 2 diabetes mellitus with diabetic neuropathy, unspecified 06/23/2021 22:20 [facility] TYPE: Medical Surgical DIAGNOSES: - Essential (primary) hypertension - Symptomatic Bradycardia - Hypertensive chronic kidney disease with stage 1 through stage 4 chronic kidney disease, or unspecified chronic kidney disease - Unspecified dementia with behavioral disturbance - Anemia in chronic kidney disease - Mixed hyperlipidemia - Type 2 diabetes mellitus with diabetic neuropathy, unspecified - Chronic kidney disease, stage 3b - Gastro-esophageal reflux disease without esophagitis - Conduction disorder, unspecified - Acute respiratory failure with hypoxia - Atherosclerotic heart disease of [place] coronary artery with other forms of angina pectoris - Unspecified dementia with behavioral disturbance - Bradycardia, unspecified [email or web address]
== END 2022-04-17 19:01 | disposition home or self-care (01) ==
LOC: ED 17:40
DX: T83.9XXA Unspecified complication of genitourinary prosthetic device, implant and graft, initial encounter (principal); I13.0 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 kidney disease, or unspecified chronic kidney disease; E11.22 Type 2 diabetes mellitus with diabetic chronic kidney disease; N18.4 Chronic kidney disease, stage 4 (severe); I50.9 Heart failure, unspecified; E03.9 Hypothyroidism, unspecified; E78.5 Hyperlipidemia, unspecified; M10.9 Gout, unspecified; Z87.891 Personal history of nicotine dependence; Z88.2 Allergy status to sulfonamides; Z79.82 Long term (current) use of aspirin; Z79.899 Other long term (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; Z79.84 Long term (current) use of oral hypoglycemic drugs
CPT/HCPCS: 51798; 99283-25

== ENCOUNTER 2022-04-22 07:34 | Inpatient (IN) | payer MEDICARE, OTHER ==
[~2022-04-22] VITALS: Ht 172.7 cm; Wt 80.6 kg
--- OUTSIDE RECORDS SUMMARY | 2022-04-22 07:42 | XMS ---
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 Jarred VISIT COUNT (12 MO.) 1 Noel Garcia M.C. 16 FRED Ge TOTAL 17 NOTE: Visits indicate total known visits. ED/UCC VISIT TRACKING (12 MO.) 04/22/2022 07:35 [facility] [place] TYPE: Emergency COMPLAINT: - CONFUSION/POSS UTI 04/17/2022 17:40 [facility] [place] TYPE: Emergency COMPLAINT: - CATHETER PROBLEM 02/28/2022 09:04 [facility] [place] TYPE: Emergency COMPLAINT: - ALTERED LOC DIAGNOSES: - Gout, unspecified - 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 - Type 2 diabetes mellitus with diabetic chronic kidney disease - Personal history of nicotine dependence - Other [facility] (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 - Hyperlipidemia, unspecified - Chronic kidney disease, stage 4 (severe) - Allergy status to sulfonamides - care home (current) use of oral hypoglycemic drugs - Heart failure, unspecified - Hypothyroidism, unspecified - Altered mental status, unspecified - Type 2 diabetes mellitus with hyperglycemia - 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 kidney disease, or unspecified chronic kidney disease - Displacement of other urinary catheter, initial encounter 02/23/2022 19:01 [facility] [place] TYPE: Emergency COMPLAINT: - STROKE SYMPTOMS 02/12/2022 19:52 [facility] [place] TYPE: Emergency COMPLAINT: - BLOOD PRESSURE PROBLEM DIAGNOSES: - Hyperlipidemia, unspecified - Heart failure, unspecified - Anemia, unspecified - 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 - care home (current) use of systemic steroids - 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 - Chronic kidney disease, stage 4 (severe) - Allergy status to sulfonamides - Hypothyroidism, unspecified - Type 2 diabetes mellitus with diabetic chronic kidney disease - Personal history of nicotine dependence - Type 2 diabetes mellitus with hyperglycemia - Other [facility] (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 - Gout, unspecified - 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 kidney disease, or unspecified chronic kidney disease 02/11/2022 08:53 [facility] [place] TYPE: Emergency COMPLAINT: - R HAND SWELLING DIAGNOSES: - 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 kidney disease, or unspecified chronic kidney disease - Gout, unspecified - Chronic kidney disease, stage 4 (severe) - Other intermediate designer (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 - Allergy status to sulfonamides - Other specified soft tissue disorders - Type 2 diabetes mellitus with diabetic chronic kidney disease - Hyperlipidemia, unspecified - Hypothyroidism, unspecified - care home (current) use of opiate analgesic - Heart failure, unspecified - care home (current) use of aspirin - Personal history of nicotine dependence - care home (current) use of oral hypoglycemic drugs 02/03/2022 10:43 [facility] [place] TYPE: Emergency COMPLAINT: - CATHETER LEAKING DIAGNOSES: - Personal history of nicotine dependence - 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 - care home (current) use of aspirin - Heart failure, [...] mellitus with diabetic chronic kidney disease - 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 - 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 kidney disease, or unspecified chronic kidney disease - Hyperlipidemia, unspecified - Allergy status to sulfonamides 02/02/2022 20:35 [facility] [place] TYPE: Emergency COMPLAINT: - CATHETER PROBLEM DIAGNOSES: - Chronic kidney disease, stage 4 (severe) - Other mechanical complication of indwelling urethral catheter, initial encounter - Hyperlipidemia, unspecified - Type 2 diabetes mellitus with diabetic chronic kidney disease - Heart failure, unspecified - Hypothyroidism, unspecified - 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 - Other [facility] (current) [...] kidney disease - Allergy status to sulfonamides 01/31/2022 08:39 [facility] [place] TYPE: Emergency COMPLAINT: - HIGH BLOOD SUGAR DIAGNOSES: - Contact with and (suspected) exposure to COVID-19 - Hypertensive chronic kidney disease with stage 1 through stage 4 chronic kidney disease, or unspecified chronic kidney disease - Hyperlipidemia, unspecified - Personal history of nicotine dependence - Retention of urine, unspecified - Allergy status to sulfonamides - 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 - Hypothyroidism, unspecified - Nausea with vomiting, unspecified - care home (current) use of aspirin - Other intermediate designer (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 - Type 2 diabetes mellitus with diabetic chronic kidney disease - Chronic kidney disease, stage 4 (severe) 01/30/2022 19:32 [facility] [place] TYPE: Emergency COMPLAINT: - LEG/NECK PAIN/NO INJ DIAGNOSES: - Cervicalgia - Allergy status to sulfonamides - Type 2 diabetes mellitus with diabetic chronic kidney disease - Spondylosis without myelopathy or radiculopathy, cervical region - 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 kidney disease, or unspecified chronic kidney disease - Other intermediate designer (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 - Hypothyroidism, unspecified - Personal history of nicotine dependence - Primary osteoarthritis, other specified site - 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 - Heart failure, unspecified - Hyperlipidemia, unspecified - Chronic kidney disease, stage 4 (severe) 11/11/2021 09:15 [facility] [place] TYPE: Emergency COMPLAINT: - POSS STROKE [facility]21 [facility] DIAGNOSES: - Other specified soft tissue disorders - Dehydration - Presence of cardiac pacemaker - Chronic kidney disease, stage 3b - Anemia in chronic kidney disease - Type 2 diabetes mellitus with diabetic neuropathy, unspecified - COVID-19 - Hand Swelling - covid pos - Essential (primary) hypertension 11/09/2021 18:08 [facility] [place] TYPE: Emergency COMPLAINT: - WEAKNESS DIAGNOSES: - Hypothyroidism, unspecified - Other intermediate designer (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 - Heart failure, unspecified - Weakness - Personal history of nicotine dependence - Hyperlipidemia, unspecified - Chronic kidney disease, stage 4 (severe) - 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 kidney disease, or unspecified chronic kidney disease - care home (current) use of oral hypoglycemic drugs - Allergy status to sulfonamides - Type 2 diabetes mellitus with diabetic chronic kidney disease - care home (current) use of aspirin - COVID-19 09/14/2021 18:08 [facility] [place] TYPE: Emergency COMPLAINT: - HEADACHE DIAGNOSES: - Hyperlipidemia, unspecified - Type 2 diabetes mellitus with diabetic chronic kidney disease - Hypothyroidism, unspecified - Personal history of nicotine dependence - Acute upper respiratory infection, unspecified - Allergy status to sulfonamides - care home (current) use of aspirin - Headache, unspecified - Other intermediate designer (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 - Heart failure, unspecified - Chronic kidney disease, stage 3 unspecified - care home (current) use of oral hypoglycemic drugs - Contact with and (suspected) exposure to COVID-19 - 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 kidney disease, or unspecified chronic kidney disease 08/14/2021 10:34 [facility] [place] TYPE: Emergency COMPLAINT: - DIFFICULTY BREATHING WHEN STANDING 07/10/2021 09:52 [facility] [place] TYPE: Emergency COMPLAINT: - HEART ISSUE, AMS, WEAK DIAGNOSES: - Shortness of breath - Other intermediate designer (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 - Hyperlipidemia, unspecified - Hyperkalemia - Chronic kidney disease, stage 3 unspecified - Heart failure, unspecified - Type 2 diabetes mellitus with diabetic chronic kidney disease - care home (current) use of oral hypoglycemic drugs - Allergy status to sulfonamides - Contact with and (suspected) exposure to COVID-19 - Hypothyroidism, unspecified - 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 kidney disease, or unspecified chronic kidney disease - Hypoxemia - Acute kidney failure, unspecified - Personal history of nicotine dependence 06/23/2021 19:44 [facility] [place] TYPE: Emergency COMPLAINT: - FALL DIAGNOSES: - Bradycardia, unspecified - Dizziness and giddiness - 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 - [...] chronic kidney disease - Hyperlipidemia, unspecified - 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 - Contact with and (suspected) exposure to COVID-19 - Other 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 INPATIENT VISIT TRACKING (12 MO.) 02/23/2022 19:02 [facility] [place] TYPE: Observation COMPLAINT: - TIA DIAGNOSES: - Chronic kidney disease, stage 4 [...] unspecified - Personal history of nicotine dependence 11/11/2021 09:16 [facility] [place] TYPE: Observation COMPLAINT: - TIA, COVID 19 DIAGNOSES: - Hypothyroidism, unspecified - Hyperlipidemia, unspecified - Type 2 diabetes mellitus with diabetic chronic kidney disease - Heart failure, unspecified - Altered mental status, unspecified - Other speech disturbances - COVID-19 - Anemia in chronic kidney disease - Presence of cardiac pacemaker - Benign prostatic hyperplasia without lower urinary tract symptoms - Personal history of nicotine dependence - care home (current) use of aspirin - Allergy status to sulfonamides - Chronic kidney disease, stage 4 (severe) - Acute kidney failure, unspecified - 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 kidney disease, or unspecified chronic kidney disease 08/14/2021 13:27 [facility] [place] TYPE: Medical Surgical COMPLAINT: - RESPIRATORY FAILURE DIAGNOSES: - Hyperlipidemia, unspecified - Atherosclerotic heart disease of [place] coronary artery without angina pectoris - Type 2 diabetes mellitus with diabetic chronic kidney disease - Contact with and (suspected) exposure to COVID-19 - Acute kidney failure, unspecified - 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 - Allergy status to [...] - Gastro-esophageal reflux disease without esophagitis - 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 - Benign prostatic hyperplasia without lower urinary tract symptoms - Acute respiratory failure with hypercapnia - Sick sinus syndrome - Personal history of nicotine dependence - Unspecified right bundle-branch block [facility]21 [facility] DIAGNOSES: - Type 2 diabetes mellitus with diabetic neuropathy, unspecified - Chronic kidney disease, stage 3b - Congestive heart failure, hypoxia - Encounter for adjustment and management of other part of cardiac pacemaker - Hypertensive chronic kidney disease with stage 1 through stage 4 chronic kidney disease, or unspecified chronic kidney disease - Acute systolic (congestive) heart failure - Atherosclerotic heart disease of [place] coronary artery with other forms of angina pectoris - Other retention of urine 06/23/2021 22:20 [facility] DIAGNOSES: - Unspecified dementia with behavioral disturbance - Bradycardia, unspecified - Essential (primary) hypertension - Symptomatic Bradycardia [...] with hypoxia - Atherosclerotic heart disease of [place] coronary artery with other forms of angina pectoris [id number]
--- NOTE | 2022-04-22 12:53 | NUR ---
PT ARRIVED TO FLOOR VIA STRETCHER. TELE 10 PLACED. SKIN ASSESSMENT COMPLETED AND PT HAS NO WOUNDS ON BODY. REESE IN PLACE AND DRAINING CLEAR YELLOW URINE. PT IS DROWSY AND SLOW TO RESPOND BUT IS ABLE TO ANSWER QUESTIONS APPROPRIATLY. WATER AND BROTH PROVIDED. PT DRINKING WELL WITH NO CONCERS. LASIX AND 5UNITS INSULIN ADMINISTERED. VITALS TAKEN AND STABLE. PT ON 2L NC AT THIS TIME. SOME CRACKLES HEARD IN LOWER LOBES. ALL OTHERS DIM. PT WITH 2+ EDEMA ON HANDS AND 3+ ON BILAT LE. OREITNED TO ROOM. BED ALARM PLACED PT IS FORGETFUL AND CALL LIGHT IN REACH. DENEIS FURTHER NEEDS.
--- NOTE | 2022-04-22 13:59 | NUR ---
PT TOLERATED CLEAR LIQUIDS WITHOUT ISSUE. 60 GRAM DIET ORDERED. WILL ADD MINCED AND MOIST PT DOES NOT HAVE DENUTRES HERE. SITTING BY ASSISTING PT EAT HE IS DROWSY. PT FEEDING SELF WITH SOME ASSISTENCE.
--- NOTE | 2022-04-22 14:06 | NUR ---
PT IN BED. IS AND OS COMPLETE. NO NEEDS. CALL LIGHT WITHIN REACH.
[2022-04-22] MEDS ORDERED: ALLOPURINOL100 MG PO ×2 (14:16)
[2022-04-22] MEDS ORDERED: LEVOTHYROXINE100 MCG PO ×2 (14:17)
--- NOTE | 2022-04-22 14:26 | NUR ---
IMAGING IN FOR ECHO.
[2022-04-22] MEDS ORDERED: NORVASC2.5 MG PO ×2 (14:29)
--- NOTE | 2022-04-22 15:22 | NUR ---
ROUNDED ON PT. PT LYING ON LEFT SIDE WITH HOB ELEVATED. 2L NC STILL IN PLACE. RR EQUA LAND NONLABORED. TELE [address] PT IS PACED. HR 60. REESE DRAINING WELL. CALL LIGHT IN REACH. BED ALARM IN PLACE.
--- NOTE | 2022-04-22 17:44 | NUR ---
dinner at bedside. pt much more awake this evening eating better then lunch. 3 units insuline adminstered. sitting at bedside with pt for dinner.
--- NOTE | 2022-04-22 17:51 | NUR ---
medications reconciled using pharmacy records and physician chart notes
--- NOTE | 2022-04-22 18:10 | NUR ---
updates provided to friend teresa and sister gildardo with permission of patient.
--- NOTE | 2022-04-22 19:50 | NUR ---
Patient sleeping in bed. Bed alarm in place. Call light within reach.
--- NOTE | 2022-04-22 20:51 | EKG ---
[facility] [address] [place] [address] Signed Undetermined rhythm Right bundle branch block Left anterior fascicular block Bifascicular block Abnormal ECG When compared with ECG of 28-FEB-2022 09:01, Current undetermined rhythm precludes rhythm comparison, needs review Confirmed by LANE RODRÍGUEZ MD ([id number]) on 04/22/2022 8:51:22 PM Electronically Signed By: LANE RODRÍGUEZ MD 04/22/222050 PATIENT NAME: JANICE FOSTER Electrocardiogram DATE OF : 40 PHYSICIAN: LANE RODRÍGUEZ MD REPORT #: [id number] REPORT IS CONFIDENTIAL AND NOT TO BE RELEASED WITHOUT AUTHORIZATION
--- NOTE | 2022-04-22 23:53 | NUR ---
Patient sleeping in bed. Call light within reach. Bed alarm in place.
--- NOTE | 2022-04-23 04:16 | NUR ---
Uneventful shift. Patient remains drowsy. Awakens to voice. Follows commands. Alert/oriented to place, self. Disoriented to date, situation. Calls appropriately. Fine crackles bilat bases. On 2L O2. Remains on tele. Paced. Saline locked. Berry patent. Draining clear/yellow urine. Bowel sounds active. No BM on shift. Has remained in bed. Bed alarm in place.
--- NOTE | 2022-04-23 07:59 | NUR ---
REPORT RECEIVED, CARE RESUMED. PT RESTING IN BED WITH EYES CLOSED, RESP EVEN AND UNLABORED.
--- NOTE | 2022-04-23 10:25 | NUR ---
PATIENT LAYING IN BED. VITALS AND I/O DOCUMANTED. PT HAS NO FURTHER NEEDS AT THIS TIME. CALL LIGHT WITHIN REACH.
--- NOTE | 2022-04-23 12:28 | NUR ---
BLOOD PRODUCTS INFUSING VIA LEFT SHOULDER IV. 15 MIN VITALS STABLE, NO S/S OF REACTION. INCREASED RATE TO 150 ML/HR. PT SITTING UP IN BED EATING LUNCH, SOMEWHAT DROWSY, UNCHANGED FROM PREVIOUSLY. CALL LIGHT IN REACH, BED ALARM ON.
--- NOTE | 2022-04-23 12:55 | NUR ---
IN ROOM TO CHECK ON PT AFTER HEARING COUGHING. PT COMPLAINS THAT THE GROUND MEAT IS HARD TO SWALLOW. PT ABLE TO SWALLOW MOISTER FOOD WITHOUT DIFFICULTY SUCH CHOPPED PEARS. PT RESUMED EATING WITHOUT FURTHER ISSUE.
--- NOTE | 2022-04-23 13:43 | NUR ---
PT IS LAYING IN BED. VITALS AND I/O HAVE BEEN DOCUMANTED. PT HAS NO OTHER NEEDS AT THIS TIME. CALL LIGHT IS WITHIN REACH.
--- NOTE | 2022-04-23 15:08 | NUR ---
Attempted to speak with pt and he is unable to understand and does not respond. Called pts emergency contact Irlanda, and her daughter his cg Roya. Pt lives at the [facility]. Irlanda states she and her daughter provide care over and above the hours provided by the [facility]. She states daughter also cooks pts breakfast and dinner, as well as providing all care, transportation. Pt currently uses a walker, but Irlanda feels he is unsafe. He does not have cg hours at night and she states he pulled his catheter out during the night when he was confused. She states she and his sister would like him placed. She also states pt refuses to leave the [facility] where he lives. Let her know I cannot force pt to be placed. I can call and update his behavioral health case manager at [facility]. She denies pt has need for any other equipment, they provide food as needed, as well and transportation. Pt also has HH currently. Called and left a message for Darlene at [facility] and updated to my conversation with Irlanda. I was able to speak with Iman Gutierrez, the worker of the day. She reviewed pts infor and pt currently receives 41 hours per week of cg services at this time through the [facility].
--- NOTE | 2022-04-23 15:30 | NUR ---
ASSESSMENT DONE, AFTERNOON MEDS GIVEN. PT RESTGIN IN BED SITTING UP WITH EYES CLOSED, OPENS WHEN SPOKEN TO. PT DROWSY, O2 96 % ON RA, RESP EVEN ADN UNLBORED, LUNGS CLEAR IN UPPERS, DIM IN LOWERS, NO CRACKLES HEARD AT THIS TIME. CALL LIGHT IN REACH.
--- NOTE | 2022-04-23 16:52 | NUR ---
SECOND UNIT OF BLOOD HUNG, 15 MIN VITAL SIGNS STABLE, NO S/S OF REACTION. PT UP TO COMMODE TO ATTEMPT TO HAVE BM WITH 1PA. CALL LIGHT IN REACH, BLOOD ADMIN RATE INCREASED TO 150 ML/HR.
--- NOTE | 2022-04-23 17:43 | NUR ---
Entered pt room to assist with blood infusion. Pt requested to get out of bed to have a bowel movement. Provided a bedside commode for pt use. Pt expressed discomfort on the bedside commode and requested to use the bathroom. Pt successfully voided stool. Pt returned to bed. Provided dinner tray for pt. Left pt resting in bed with meal tray.
--- NOTE | 2022-04-23 19:25 | NUR ---
Blood stopped at this time. Vitals stable. No reaction noted. Field stick IV removed.
--- NOTE | 2022-04-23 19:31 | NUR ---
In bed. Talking to relative on phone. Denies pain. Denies needs. Blood transfusion stopped. Call light within reach. Bed alarm in place.
--- NOTE | 2022-04-24 00:16 | NUR ---
Patient sleeping in bed. Saline locked. Bed alarm in place. Call light within reach.
--- NOTE | 2022-04-24 04:04 | NUR ---
Uneventful shift. Patient alternates between using call light and calling out. Is oriented to self and place. Slow to respond. Gen weakness. On 2L O2 overnight. Breath sounds dim in bases. Bowel sounds active. Multiple BM's on shift. Saline locked. Adequate I&O's. Berry patent. Clear, yellow urine. +2 BLE edema. Bed alarm in place. Remains on telemetry.
--- NOTE | 2022-04-24 07:51 | NUR ---
Report received, care resumed. Pt resting bed with eyes closed, resp even and unlabored.
--- NOTE | 2022-04-24 08:48 | NUR ---
Entered pt room to administer morning medications. After medication administration pt moved from bed to chair using a walker with 1 person stand by assist. Breakfast tray was provided to pt. Bed linens changed. Left pt resting comfortably in chair with meal tray.
--- NOTE | 2022-04-24 10:35 | NUR ---
Entered room to get pt vital signs. Removed meal tray upon pt stating he was finished eating. Pt was asked if he would like a shower, to which he was agreeable. Paused pt IV anitbiotic tx. Showered pt with assitance from WELFARE SUPERVISOR. Changed pt gown and returned him to bed. Resumed IV antibiotic tx. Pt left resting comfortably in bed with call light in reach.
--- NOTE | 2022-04-24 13:14 | NUR ---
IN ROOM TO ADMINISTER MEDICATION. PT VERY SLEEPY, FELL ASLEEP AFTER EATING TINY AMOUNT OF LUNCH. PT REQUIRED STERNAL RUB TO WAKE UP, NOT RESPONSIVE TO VOICE OR FIRM TOUCH. AFTER WAKING UP PT BALLS UP FIST AND STATES "I'M GOING TO PUNCH YOU IF YOU KEEP WAKING ME UP". APOLOGIZED FOR INTERRUPTION, PT COMPLACENT AFTERWARD. ADMINISTRATIVE STAFF ALSO IN ROOM TO HAVE PT SIGN FORMS. PT SLOW TO RESPOND, SLOW TO SIGN BUT COOPERATVE. PT HAS NOW RESUMED EATING HIS LUNCH AND IS LEFT SITTING UPRIGHT IN BED WITH CALL LIGHT IN REACH. O2 98% ON 2 L PER NC, RR 20, EVEN, SOMEWHAT DEEP BUT UNLABORED BREATHS.
--- NOTE | 2022-04-24 15:43 | NUR ---
ASSESSMENT DONE. PT SLEEPING WHEN I ARRIVED, AWAKENS TO FIRM TOUCH AND VOICE. PT COOPERATIVE AND ANSWERS QUESTIONS. TELLS ME HE "HURTS ALL OVER TODAY" BUT UNABLE TO RATE PAIN OR DESCRIBE WHERE. RESP EVEN AND UNLABORED. RR 20, O298% ON 1 L PER NC. REESE DRAINING CLEAR, YELLOW URINE. REPOSITIONED AND RECLINED FOR COMFORT. PT RETURNS TO SLEEP WHEN LEFT ALONE. CALL LIGHT IN HAND.
--- NOTE | 2022-04-24 17:47 | NUR ---
In room to give meds and set pt up to eat dinner. Pt sleeping when I arrived, required multiple attempts to wake up. Pt woke up and answered questions appropriately. Still very drowsy. Meds given, pt starting to feed himself dinner. Call light in reach.
--- NOTE | 2022-04-24 17:49 | NUR ---
Resp even and unlabored, RR 16, O2 100% on 1 L per NC. Titrated down to 0L.
--- NOTE | 2022-04-24 18:39 | NUR ---
IN TO DO VITALS, PT AWAKE WHEN I ARRIVED, MAKES EYE CONTACT AND NODS WHEN ASKED HOW HE IS. REESE DRAINING WELL, CLEAR YELLOW URINE. PT SITTING UP IN BED, CALL LIGHT IN HAND.
--- NOTE | 2022-04-24 20:07 | NUR ---
Patient sleeping in bed. Bed alarm in place. Call light within reach.
--- NOTE | 2022-04-25 00:55 | NUR ---
Patient sleeping in bed. Call light within reach. Bed alarm in place.
--- NOTE | 2022-04-25 03:39 | NUR ---
Uneventful shift. Mentation/orientation status remain unchanged. Calls appropriately. On RA. Lung sounds dim in bases. Ambulates w/assist of 1 and walker. Bowel sounds active. Lg BM on shift. Berry patent. Draining clear, yellow urine.
--- NOTE | 2022-04-25 08:03 | NUR ---
REPORT RECIEVED, CARE RESUMED. PT LAYING IN BED WITH EYES OPEN, MAKES EYE CONTACT AND NODS WHEN ASKED HOW HE IS. RESP EVEN AND UNLABORED, CALL LIGHT IN REACH, BED ALARM ON.
--- NOTE | 2022-04-25 08:36 | NUR ---
GOT PATIENT UP TO SIT IN HIS CHAIR FOR BREAKFAST. CHANGED BED LINENS. CHAIR ALARM HIS ON. WASHED HIS FACE.
--- NOTE | 2022-04-25 08:47 | NUR ---
ASSESSMENT DONE, MORNING MEDS GIVEN. DR RODRÍGUEZ IN TO SEE PT, AWAITING ORDERS FOR STEROIDS. PT ENDORSES FEELING MORE TIRED TODAY, WANTS TO REST MORE. TORSEMIDE HELD PER MD FOR LOW BP, IMPROVING EDEMA. PLAN TO [place] PO FLUID INTAKE. PT AGREEABLE. NEW ICE WATER AND ORANGE JUICE GIVEN AT PT REQUEST. CALL LIGHT IN REACH. PT SITTING UP EATING BREAKFAST AT THIS TIME.
--- NOTE | 2022-04-25 09:19 | NUR ---
Assessment done, morning meds given. Dr Qureshi in to see pt. Pt sitting up in chair eating breakfast. Pt is much more alert and awake today, answers questions, interacting appropriately. Repeats name several times when spoken to, probably related to being hard of hearing. RR 20, O2 93% on RA. Resp even, deep. Harsh cough, small amount of white phlegm. Berry draining clear, yellow urine. Pt left sitting up in chair with feet raised, personal items and call light in reach.
--- NOTE | 2022-04-25 11:14 | NUR ---
THIS MORNING GOT PATIENT OUT OF BED TO SIT IN HIS CHAIR TO EAT HIS BREAKFAST. ALSO WASHED HIS FACE. CHANGED BED LINENS. CHANGED HIS GOWN.
--- NOTE | 2022-04-25 15:18 | NUR ---
ASSESSMENT DONE, PT RESTING IN BED ON LEFT SIDE WITH EYES CLOSED. OPENS EYES AND NODS WHEN SPOKEN TO. O2 93% ON ROOM AIR WHILE SLEEPING. CALL LIGHT IN REACH.
--- NOTE | 2022-04-25 16:14 | NUR ---
PATIENT STAYED IN HIS CHAIR UNTIL AFTER LUNCH. THAN HE WAS PUT BACK IN BED.
--- NOTE | 2022-04-25 18:40 | NUR ---
ROUNDED ON PT, PT LYING IN BED AWAKE, STATES HE IS GOOD WHEN ASKED. PT BOOSTED AND REPOSITIONED. BED ALARM ON, CALL LIGHT IN REACH.
--- NOTE | 2022-04-25 20:37 | NUR ---
FULL BODY ASSESMENT DONE, NO ACUTE CHANGES. CBG 197, 3 UNITS OF HUMALOG ADMINISTERED. USED HEARING DEVICE TO COMMUNICATE WITH PATIENT, UPDATING ON MEDICATIONS, AND ANSWERING QUESTIONS ABOUT POC AND DISCHARGE PLAN. PATIENT REPORTS NO PAIN. PROVIDED WARM BLANKETS AND ICE WATER. PATIENT STATES " LET THEM KNOW I AM READY TO GO HOME". CALL LIGHT WITHIN REACH. BED ALARM ON. AAOX3 TO PERSON PLACE AND TIME.
--- NOTE | 2022-04-25 21:57 | NUR ---
BED ALARM SOUNDING. PT SITTING ON EDGE OF BED, SAID HE WAS TRYING TO STRAIGHTEN OUT HIS COVERS. ASSISTED HIM, FRESH GOWN PUT OWN. HEAD ELEVATED TO PT CHOICE, BED ALARM PLACED.
--- NOTE | 2022-04-26 00:50 | NUR ---
in to assist pt from chair to bed, bed alarm set
--- NOTE | 2022-04-26 02:42 | NUR ---
pt called, assisted with legs back into bed to lay down, alarm set
--- NOTE | 2022-04-26 08:00 | NUR ---
PT AWAKE RESTING IN BED AT TIME OF SHIFT REPORT. SBA UP TO RECLINER.
--- NOTE | 2022-04-26 08:00 | NUR ---
PATIENT UP IN CHAIR FOR MEAL. NURSE JULIAN DID AM CARE. PT HAS NO OTHER NEEDS AT THIS TIME, CALL LIGHT WITHIN REACH.
--- NOTE | 2022-04-26 08:21 | NUR ---
PATIENT REQUESTED TO HAVE ALICEA SHAVED OFF, PROVIDED CARE. PATIENT UP IN RECLINER WITH BED ALARM ON, APPEARS TO BE RESTING WITH EYES CLOSED. TEST ENGINE OPERATOR IN ROOM CHANGING LINEN.
--- NOTE | 2022-04-26 10:35 | NUR ---
PATIENT BACK IN BED AFTER MEAL. VITALS AND I/O'S COMPLETED. PT HAS NO OTHER NEEDS AT THIS TIME. CALL LIGHT WITHIN REACH.
--- NOTE | 2022-04-26 10:41 | NUR ---
PT EATS 100% OF MORNING MEAL, AGREES HE WOULD LIKE OATMEAL WELL, EATS 100%. RETURNS TO BED TO REST.
--- NOTE | 2022-04-26 13:14 | NUR ---
DR SCHULTZ IN TO SEE PT.
[2022-04-26] MEDS ORDERED: CIPROFLOXACIN250 MG PO ×2 (13:21)
[2022-04-26] MEDS ORDERED: GLIPIZIDE XL2.5 MG PO ×2 (13:22)
--- NOTE | 2022-04-26 13:30 | NUR ---
PATIENT BACK IN BED AFTER MEAL. VITALS AND I/O'S COMPLETED. REESE DRAINED AND DOCUMENTED. BED ALARM ON. PT HAS NO OTHER NEEDS AT THIS TIME. CALL LIGHT WITHIN REACH.
== END 2022-04-26 14:10 | disposition home or self-care (01) | DRG 698 ==
LOC: ED 07:34 → MS 10:59
PROVIDERS: ADMIT Internal Medicine; ATTEND Internal Medicine
PROC: 30233N1 Transfusion of Nonautologous Red Blood Cells into Peripheral Vein, Percutaneous Approach (ICD-10-PCS; principal; 2022-04-23)
DX: T83.511A Infection and inflammatory reaction due to indwelling urethral catheter, initial encounter (principal); G93.41 Metabolic encephalopathy; I13.0 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 kidney disease, or unspecified chronic kidney disease; N17.9 Acute kidney failure, unspecified; N18.4 Chronic kidney disease, stage 4 (severe); N39.0 Urinary tract infection, site not specified; B95.2 Enterococcus as the cause of diseases classified elsewhere; D63.1 Anemia in chronic kidney disease; I25.10 Atherosclerotic heart disease of native coronary artery without angina pectoris; I07.1 Rheumatic tricuspid insufficiency; I27.20 Pulmonary hypertension, unspecified; E11.22 Type 2 diabetes mellitus with diabetic chronic kidney disease; N40.0 Benign prostatic hyperplasia without lower urinary tract symptoms; E78.00 Pure hypercholesterolemia, unspecified; E03.9 Hypothyroidism, unspecified; G31.84 Mild cognitive impairment of uncertain or unknown etiology; I50.9 Heart failure, unspecified; M10.9 Gout, unspecified; E11.51 Type 2 diabetes mellitus with diabetic peripheral angiopathy without gangrene; R09.02 Hypoxemia; Y84.6 Urinary catheterization as the cause of abnormal reaction of the patient, or of later complication, without mention of misadventure at the time of the procedure; Z20.822 Contact with and (suspected) exposure to COVID-19; Z95.0 Presence of cardiac pacemaker; Z87.891 Personal history of nicotine dependence; Z90.49 Acquired absence of other specified parts of digestive tract; Z98.890 Other specified postprocedural states; Z88.2 Allergy status to sulfonamides; Z79.899 Other long term (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; Z79.01 Long term (current) use of anticoagulants; Z79.52 Long term (current) use of systemic steroids; Z79.82 Long term (current) use of aspirin; Z79.84 Long term (current) use of oral hypoglycemic drugs; Z79.02 Long term (current) use of antithrombotics/antiplatelets; Z86.73 Personal history of transient ischemic attack (TIA), and cerebral infarction without residual deficits
CPT/HCPCS: 36415; 36430; 36600; 51798; 70450; 71045; 80048; 80053; 81001; 82668; 82803; 83036; 83605; 83735; 83880; 84484; 85025; 86850; 86900; 86901; 86922; 87040; 87077; 87088; 87186; 87502; 93005; 93010; 93306; 99285-25; A9270; C9113; C9803; J0692; J0696; J1815; J1940; J7030; P9016; U0003